=== PATIENT | male | born 1955 | race Caucasian/White ===

== ENCOUNTER 2022-08-07 13:30 | Inpatient (IN) | payer MEDICARE, MEDICAID, SELFPAY ==
[2022-08-07] VITALS (17 sets, daily range): BP systolic 115–191; BP diastolic 61–134; PULSE 67–84; RESP 15–18; TEMP 35.2; O2SAT 88–98
--- NOTE | 2022-08-07 13:37 | ED_ITS ---
HPI - Seizure General: Chief Complaint: Seizure Stated Complaint: seizure Time Seen by Provider: 08/07/22 13:35 Source: patient Mode of arrival: EMS History of Present Illness: HPI Narrative: 67-year-old male presents emergency room via EMS with complaints of multiple seizures. He has a history of chronic alcohol use but no previous seizure history. He had a seizure at 1250 this morning. EMS was later called when they were on scene they witnessed the seizure gave him 2 and half milligrams of Versed and then witnessed another seizure in route gave him another 2 and half milligrams of Versed on arrival here he is obtunded from the sedation of the Versed he is on 2 L of oxygen which she is not normally on and he is unable to be aroused by noxious stimuli there are no family at the bedside MD complaint: seizure Onset (ago): minute(s) Description of Episode: tonic-clonic movement Witnessed: Yes - by Bystander Trauma: Yes Seizure History: Yes Place: Home Possible Precipitating Event: alcohol withdrawal Associated symptoms: Deny cough or other Review of Systems General: Reports: ROS unobtainable due to medical condition and ROS unobtainable due to mental status [facility] ED PFSH: Medical History Alcohol abuse Alcohol withdrawal seizure Diabetes Essential hypertension History of cirrhosis of liver Surgical History Hx of adenoidectomy Hx of appendectomy Hx of tonsillectomy Family History Other Cancer Hypertension Lung disease Prostate cancer Social History Smoking and tobacco status: current every day smoker Alcohol intake: current Caregiver/support person: Yes Lives independently: Yes Household members: other Details: significant other Housing: House Marital status: Life Partner Physical Exam HENMT: COMMON NORMALS: normocephalic, atraumatic and hearing grossly normal bilaterally HEAD & SCALP: normocephalic and atraumatic Resp: COMMON NORMALS: normal respiratory effort, No retractions, No use of accessory muscles and clear to auscultation bilaterally AUSCULTATION: clear to auscultation bilaterally Cardio: COMMON NORMALS: regular rate, regular rhythm and No murmurs present (Cardio) RATE: regular rate RHYTHM: regular rhythm GI: COMMON NORMALS: Soft to palpation and No hepatosplenomegaly present AUSCULTATION: Yes normoactive bowel sounds PALPATION: Yes Soft to palpation, No Tenderness to palpation present (GI), No Guarding due to palpation present (GI) and Yes No hepatosplenomegaly present Extremity: COMMON NORMALS: normal to inspection, capillary refill normal, no clubbing, cyanosis or edema, no calf tenderness and no pedal edema Skin: COMMON NORMALS: no rashes or lesions noted GENERAL SKIN EXAM: no rashes or lesions noted Procedures Intubation Time out performed: Yes sedative: Etomidate paralytic: Succinylcholine Laryngoscope: Solis ET Tube Size: 8 ET Tube Uncuffed: Yes Tube Secured Depth (cm): 23 Tube Placement Confirmation: visualized tube passing through cords, equal breath sounds bilaterally, no breath sounds over epigastrium and confirmation by capnometry Patient Tolerated Procedure: well Intubation Complications: none Course Vital Signs: Vital signs: Vital Signs Temperature 98.2 F 08/17/22 14:13 Pulse Rate 93 08/17/22 14:13 Respiratory Rate 18 08/17/22 14:13 Blood Pressure 154/79 08/17/22 14:13 Pulse Oximetry 97 08/17/22 14:13 Oxygen Delivery Me thod 08/17/22 11:24 Oxygen Flow Rate 3 08/14/22 19:59 Fraction of Inspir ed Oxygen 24 08/14/22 06:00 MDM - Seizure MDM Narrative Medical decision making narrative: Alcoholic liver cirrhosis with severe decompensation patient poorly responsive discussed with hospitalist we ultimately decided to intubate the patient. Will admit to the ICU Labs imaging and EKGs reviewed reviewed as found on the chart. Hospitalist has seen the patient orders written prognosis poor Seizures likely due to alcohol withdrawal. Patient is alcoholic liver cirrhosis with portal vein thrombus esophageal varices. In addition to this he has acute kidney injury lactic acidosis elevations of his transaminases. He is in acute hypercapnic respiratory failure required intubation. Diabetic. Incidental finding of a cystitis. Lab Data 08/17/22 03:21 08/17/22 03:21 Labs: Radiology Impressions Head CT 08/07/22 14:04 IMPRESSION: 1. No evidence of intracranial hemorrhage or mass effect. 2. Mild small vessel changes. Mild parenchymal volume loss. 3. Vascular calcification. 4. No acute intracranial findings. Abdomen/Pelvis CT 08/07/22 15:13 IMPRESSION: 1. 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 Splenomegaly. 3. Portal venous hypertension with extensive portal venous collaterals and small upper abdominal varices. 4. Normal renal parenchymal enhancement. No hydronephrosis. 5. Normal caliber abdominal aorta. 6. Sigmoid diverticulosis. 7. Enlarged prostate measuring 4.1 CM. 8. No other acute findings. Notified Lico Parry DO at 08/07/2022 4:22 PM. Gallbladder Ultrasound 08/07/22 15:13 IMPRESSION: 1. Markedly abnormal liver. Most consistent with a cirrhotic fibrotic appearing liver. 2. Large tubular structures in the central liver contains a lobulated mass. This is a large recanalized umbilical vein with thrombus as well as also seen on the recent CT. 3. Mild sludge-filled gallbladder. Chest X-Ray 08/14/22 08:00 Impression: 1. No change in minimal bibasilar opacities. 2. Removal of endotracheal tube and nasogastric tube. Laboratory Results WBC 8.4 10^3/uL (4.0-10.0) 08/07/22 12:45 RBC 5.35 10^6/uL (4.1-5.3) H 08/07/22 12:45 Hgb 16.3 g/dL (11.7-16.6) 08/07/22 12:45 Hct 49.1 % (42.0-52.0) 08/07/22 12:45 MCV 91.8 fl (80-94) 08/07/22 12:45 MCH 30.5 pg (28.0-34.0) 08/07/22 12:45 MCHC 33.2 g/dL (30.0-36.0) 08/07/22 12:45 RDW 17.4 % (12.1-15.1) H 08/07/22 12:45 Plt Count 111 10^3/cmm (130-400) L 08/07/22 12:45 MPV 11.1 fL (7.4-10.4) H 08/07/22 12:45 Neut % (Auto) 79.1 % 08/07/22 12:45 Lymph % (Auto) 11.1 % 08/07/22 12:45 [place] % (Auto) 9.2 % 08/07/22 12:45 Eos % (Auto) 0.2 % 08/07/22 12:45 Baso % (Auto) 0.2 % 08/07/22 12:45 Neut # (Auto) 6.63 10^3/uL (1.8-7.7) 08/07/22 12:45 Lymph # (Auto) 0.9 10^3/uL (0.8-4.8) 08/07/22 12:45 [place] # (Auto) 0.8 10^3/uL (0.2-0.9) 08/07/22 12:45 Eos # (Auto) 0.0 10^3/uL (0.0-0.8) 08/07/22 12:45 Baso # (Auto) 0.0 10^3/uL (0.0-0.1) 08/07/22 12:45 Nucleated RBC % (auto) 0 % 08/07/22 12:45 Nucleated RBCs # 0.0 /100WBC 08/07/22 12:45 PT 20.50 SECONDS (12.1-14.9) H 08/07/22 16:34 INR 1.70 (0.8-1.2) H 08/07/22 16:34 APTT 33.2 SECONDS (23.9-36.7) 08/07/22 16:34 Specimen Type Arterial 08/07/22 14:18 Sample Site Brachial, right 08/07/22 14:18 ABG pH 7.33 (7.35-7.45) L 08/07/22 14:18 ABG pCO2 46.8 mmHg (35-45) H 08/07/22 14:18 ABG pO2 68.7 mmHg (80.0-100.0) L 08/07/22 14:18 ABG HCO3 24.8 mmol/L (22-26) 08/07/22 14:18 ABG O2 Saturation 91.6 08/07/22 14:18 ABG Base Excess -1.5 mmol/L (-2.0-2.0) 08/07/22 14:18 [place] Test N/a 08/07/22 14:18 A-a O2 Gradient 13.7 mmHg (5-10) H 08/07/22 14:18 Hematocrit 47.2 % (42-52) 08/07/22 14:18 Hgb O2 Saturation 87.7 % (95-100) L 08/07/22 14:18 Carboxyhemoglobin 4.0 %THgb (0.4-20.1) 08/07/22 14:18 Methemoglobin 0.3 % (0.4-1.5) L 08/07/22 14:18 Total Hemoglobin 15.4 g/dL (14-18) 08/07/22 14:18 Sodium 141.0 mmol/L (131-143) 08/07/22 14:18 Potassium 4.3 mmol/L (3.5-5.0) 08/07/22 14:18 Glucose 198.0 mg/dL (70-115) H 08/07/22 14:18 Ionized Calcium 1.1 mmol/L (1.1-1.4) 08/07/22 14:18 O2 Delivery Device Nc 08/07/22 14:18 O2 Liters/Min 3.0 % 08/07/22 14:18 FiO2 32.0 % 08/07/22 14:18 Field Human Resources Manager ID [facility] 08/07/22 14:18 Sodium 140 mmol/L (136-145) 08/07/22 12:45 Potassium 5.4 mmol/L (3.5-5.1) H 08/07/22 12:45 Chloride 97 mmol/L (98-107) L 08/07/22 12:45 Carbon Dioxide 17 mmol/L (22-29) L 08/07/22 12:45 Anion Gap 31.4 (5-19) H 08/07/22 12:45 BUN 33 mg/dL (8-23) H 08/07/22 12:45 Creatinine 1.9 mg/dL (0.7-1.2) H 08/07/22 12:45 GFR Calculation 35.3 mL/min (90-130) L 08/07/22 12:45 Glucose 180 mg/dL (65-115) H 08/07/22 12:45 POC Glucose 201 mg/dL (70-110) H 08/07/22 14:30 Calculated Osmolality 302 mOsm/kg (285-295) H 08/07/22 12:45 Lactic Acid 3.7 mmol/L (0.5-2.2) H 08/07/22 14:56 Calcium 9.4 mg/dL (8.5-10.5) 08/07/22 12:45 Iron 241 ug/dL (59-158) H 08/07/22 12:45 TIBC 247 mcg/dl 08/07/22 12:45 % Saturation 97.5 % (20-50) H 08/07/22 12:45 Unsat Iron Binding 6 ug/dL (112-347) L 08/07/22 12:45 Total Bilirubin 6.1 mg/dL (0.15-1.2) H 08/07/22 12:45 AST 114 U/L (0-40) H 08/07/22 12:45 ALT 57 U/L (0-41) H 08/07/22 12:45 Alkaline Phosphatase 320 U/L (40-130) H 08/07/22 12:45 Creatine Kinase 178 U/L (39-308) 08/07/22 12:45 Total Protein 6.7 g/dL (6.6-8.7) 08/07/22 12:45 Albumin 3.7 g/dL (3.5-5.2) 08/07/22 12:45 Globulin 3.0 g/dL (1.3-4.6) 08/07/22 12:45 Lipase 119 U/L (13-60) H 08/07/22 12:45 Procalcitonin 1.16 ng/mL (0-0.5) H 08/07/22 12:45 Urine Color Dark yellow (Yellow) 08/07/22 14:48 Urine Appearance Hazy (CLEAR) A 08/07/22 14:48 Urine pH 5 (5-7) 08/07/22 14:48 Ur Specific [place] 1.030 (1.005-1.030) 08/07/22 14:48 Urine Protein 3+ (Negative) H 08/07/22 14:48 Urine Glucose (UA) Norm (Normal) 08/07/22 14:48 Urine Ketones 1+ (Negative) H 08/07/22 14:48 Urine Blood 3+ (Negative) H 08/07/22 14:48 Urine Nitrate Negative (Negative) 08/07/22 14:48 Urine Bilirubin 2+ (Negative) H 08/07/22 14:48 Urine Urobilinogen 8 mg/dL (Negative) H 08/07/22 14:48 Ur Leukocyte Esterase Trace (Negative) H 08/07/22 14:48 Urine RBC 80-100 /hpf (0-2) H 08/07/22 14:48 Urine WBC 0-4 /hpf (0-5) H 08/07/22 14:48 Ur Squamous Epith Cells 0-4 /hpf (0-5) H 08/07/22 14:48 Amorphous Sediment 4+ /hpf 08/07/22 14:48 Urine Bacteria Trace /hpf (NONE) 08/07/22 14:48 Urine Opiates Screen Negative ng/mL (Negative) 08/07/22 14:48 Ur Barbiturates Screen Negative ng/mL (Negative) 08/07/22 14:48 Ur Phencyclidine Scrn Negative ng/mL (Negative) 08/07/22 14:48 Ur Amphetamines Screen Negative ng/mL (Negative) 08/07/22 14:48 U Benzodiazepines Scrn Negative ng/mL (Negative) 08/07/22 14:48 Urine Cocaine Screen Negative ng/mL (Negative) 08/07/22 14:48 U Marijuana (THC) Screen Positive ng/mL (Negative) H 08/07/22 14:48 Ethyl Alcohol < 10 mg/dL (0-10) 08/07/22 12:45 Critical Care Time Critical Care Time: Critical Care Time: Yes Total Critical Care Time: 60 Attestation: The high probability of a clinically significant, sudden or life threatening deterioration of the patient's cardiovascular respiratory neurologic system(s) required my full and direct attention, intervention and personal management. The critical care time is as shown. This time is in addition to time spent perfo rming any reported procedures but includes the following: [x] Data and vital sign review and interpretation [x] Patient assessment, examination and intervention [x] Documentation [x] Medication orders and management Discharge Plan Discharge Patient Disposition: Admitted As Inpatient Admit Provider: Shahid Ortiz Clinical Impression: Alcohol withdrawal seizure, High anion gap metabolic acidosis, Acute hypercapnic respiratory failure, Alcoholic cirrhosis of liver, Esophageal varices, Portal vein thrombosis, Acute kidney injury, Lactic acid acidosis, Alcoholism, Cystitis, Diabetes mellitus Condition: Stable Coding Level of Care Code ED Tutoring Manager for Preston Stratton
--- NOTE | 2022-08-07 14:04 | ECG_ITS ---
[facility] Test Date: 2022-08-07 Pat Name: Varun Lee Department: Room: Gender: Male Human Resources Services Specialist: : [id number] Requested By: Lico Moy Order Number: [id number] Lima MD: Codey Damon M.D. Measurements Intervals [place] Rate: 70 P: 58 IN: 171 QRS: 33 QRSD: 84 T: 47 QT: 453 QTc: 489 Interpretive Statements SINUS RHYTHM PROLONGED QT INTERVAL No previous ECG available for comparison Electronically Signed On 08-07-2022 16:19:53 LABORATORY DIRECTOR by Codey Damon M.D. [email or web address]
--- NOTE | 2022-08-07 14:04 | CT_ITS ---
WS: [id number] CT HEAD TECHNIQUE: Noncontrast CT of the head obtained from the skullbase to the vertex. CLINICAL INFORMATION: AMS COMPARISON: None. DLP: 1076.[address] scans at [facility] use at least one of these dose optimization techniques: automated e xposure control; mA and/or kV adjustment per patient size (includes targeted exams where dose is matc hed to clinical indication); or iterative reconstruction. FINDINGS: No evidence of intracranial hemorrhage or mass effect. Ventricular system and basal cisterns are leslie nt. Mild small vessel changes with moderate parenchymal volume loss. No extra-axial fluid collections . No evidence of mass or mass effect. Mastoid air cells well aerated. Secretions within the posterior nasopharynx. Retention cyst or polyp in the LEFT sphenoid sinus measuring [address]/CT head wo con* [id number] IMPRESSION: 1. No evidence of intracranial hemorrhage or mass effect. 2. Mild small vessel changes. Mild parenchymal volume loss. 3. Vascular calcification. 4. No acute intracranial findings.
--- NOTE | 2022-08-07 14:04 | XR_ITS ---
WS: [id number] PORTABLE CHEST HISTORY: dyspnea/cough COMPARISON: None available. Lungs are well-aerated. 7 mm nodule at the apex may be a granuloma. No prior studies for comparison. No pleural effusion or pneumothorax. Cardiac size: Normal. Mediastinum/Aorta: Mild atherosclerosis aorta. No osseous abnormality seen. XR/XR chest 1V portable [id number] IMPRESSION: 1. No pneumonia. 2. 7 mm nodule at the RIGHT apex. No prior studies for comparison. May be dayna gn granuloma. Recommend follow-up chest CT without contrast for evaluation. Thi s can be done on a nonurgent basis.
--- NOTE | 2022-08-07 14:08 | PC.PHAR ---
pt unable to verify medications-pts friend keyana [phone] states the pt takes care of his own medications-medications entered are from what shows has been filled recently on ext med history
[2022-08-07 14:18] LABS: Basophils % 0.2 %; Eosinophils % 0.2 %; Hematocrit 49.1 % (42.0-52.0); Hemoglobin 16.3 g/dL (11.7-16.6); Lymphocytes # 0.9 10^3/uL (0.8-4.8); Lymphocytes % 11.1 %; Mean Corpuscular HGB Conc 33.2 g/dL (30.0-36.0); Mean Corpuscular Hemoglobin 30.5 pg (28.0-34.0); Mean Corpuscular Volume 91.8 fl (80-94); Mean Platelet Volume 11.1 fL (7.4-10.4); Monocytes # 0.8 10^3/uL (0.2-0.9); Monocytes % 9.2 %; Neutrophils # 6.63 10^3/uL (1.8-7.7); Neutrophils % 79.1 %; Nucleated Red Blood Cells % 0 %; Platelet Count 111 10^3/cmm (130-400); Red Blood Count 5.35 10^6/uL (4.1-5.3); Red Cell Distribution Width 17.4 % (12.1-15.1); White Blood Count 8.4 10^3/uL (4.0-10.0)
[2022-08-07 14:26] LABS: Alanine Aminotransferase 57 U/L (0-41); Albumin Level 3.7 g/dL (3.5-5.2); Alkaline Phosphatase 320 U/L (40-130); Aspartate Amino Transferase 114 U/L (0-40); Blood Urea Nitrogen 33 mg/dL (8-23); Calcium 9.4 mg/dL (8.5-10.5); Carbon Dioxide 17 mmol/L (22-29); Chloride 97 mmol/L (98-107); Creatine Phosphokinase 178 U/L (39-308); Glomerular Filtration Rate 35.3 mL/min (90-130); Glucose 180 mg/dL (65-115); Osmolality Calculated 302 mOsm/kg (285-295); Sodium 140 mmol/L (136-145); Total Bilirubin 6.1 mg/dL (0.15-1.2); Total Protein 6.7 g/dL (6.6-8.7)
[2022-08-07 14:28] LABS: Alcohol Level < 10 mg/dL (0-10); Anion Gap 31.4 (5-19); Potassium 5.4 mmol/L (3.5-5.1)
[2022-08-07 14:30] LABS: ABG PCO2 46.8 mmHg (35-45); ABG PH Result 7.33 (7.35-7.45); Alveolar-Arterial Oxygen Gradi 13.7 mmHg (5-10); Arterial Blood Gas Hematocrit 47.2 % (42-52); Base Excess ABG -1.5 mmol/L (-2.0-2.0); Blood Gas Operator Identificat AMH; Blood Gas Sample Site Brachial, right; Blood Gas Sample Type Arterial; HCO3 ABG 24.8 mmol/L (22-26); HGB O2 Sat 87.7 % (95-100); Ionized Calcium Level - ABG 1.1 mmol/L (1.1-1.4); Methemoglobin 0.3 % (0.4-1.5); Oxygen Device NC; Oxygen Saturation ABG 91.6; PO2 ABG 68.7 mmHg (80.0-100.0); Potassium Level - ABG 4.3 mmol/L (3.5-5.0); Total Hemoglobin 15.4 g/dL (14-18)
[2022-08-07 14:34] LABS: Glucose Point of Care 201 mg/dL (70-110)
[2022-08-07 15:04] LABS: Amphetamines Screen Urine Negative (Negative); Barbiturates Screen Urine Negative (Negative); Benzodiazepines Screen Urine Negative (Negative); Cocaine Screen Urine Negative (Negative); Opiate Screen Urine Negative (Negative); PCP Screen Urine Negative (Negative); THC Screen Urine Positive (Negative)
--- NOTE | 2022-08-07 15:13 | US_ITS ---
WS: [id number] RIGHT UPPER QUADRANT ULTRASOUND HISTORY: elevated bilirubin COMPARISON: None available. Liver: 17.2 cm in length. Liver is normal size although there is marked heterogeneity. Coarse echotex ture with lobulated surface. Fibrotic appearing surface. Probably due to cirrhosis. Dilated vessel in the central liver is partially thrombosed. This corresponds to a large recanalized umbilical vein as noted on the CT. Portal Vein: Not definitely visualized. Gallbladder: Fluid-filled structure extends along the RIGHT lobe the liver inferiorly. If this is the gallbladder contains a small amount of sludge. No pericholecystic fluid. CBD: 0.4 cm Pancreas: Normal size and echogenicity. Right kidney: 12.5 cm in length. Normal size and echogenicity. No hydronephrosis or mass. Aorta and IVC: Unremarkable abdominal aorta and IVC. No ascites. US/US gall bladder [id number] IMPRESSION: 1. Markedly abnormal liver. Most consistent with a cirrhotic fibrotic appearin g liver. 2. Large tubular structures in the central liver contains a lobulated mass. Th is is a large recanalized umbilical vein with thrombus as well as also seen on the recent CT. 3. Mild sludge-filled gallbladder.
--- NOTE | 2022-08-07 15:13 | CT_ITS ---
WS: [id number] CT ABDOMEN PELVIS TECHNIQUE: Contrast-enhanced CT of the abdomen and pelvis with coronal and sagittal reformatted image s. CLINICAL INFORMATION: abd pain COMPARISON: None. DLP: 513.[address] scans at [facility] use at least one of these dose optimization techniques: automated e xposure control; mA and/or kV adjustment per patient size (includes targeted exams where dose is matc hed to clinical indication); or iterative reconstruction. FINDINGS: Advanced hepatic cirrhosis with diffuse nodular contour to the liver. Diffuse heterogeneous enhanceme nt. Atrophy within the RIGHT hepatic lobe at the dome the liver extending laterally. Acute appearing filling defect consistent with thrombus in the main portal vein. Chronic compression of the LEFT and RIGHT portal veins. Superior mesenteric vein is patent. Splenic vein is patent. Splenomegaly. Extensi ve portosystemic collaterals with anterior abdominal wall varices. Large collateral vessels in the RI GHT anterior abdominal wall and rectus abdominis. These extend to the RIGHT groin. Compression of the extrahepatic and intrahepatic IVC with narrowing which appears patent. Adrenal gla nds are normal. Normal renal parenchymal enhancement. No hydronephrosis. Normal caliber abdominal aor ta. Celiac and SMA are patent. Gallbladder with increased attenuation likely due to vicarious excreti on of contrast. Normal tapering of the common bile duct at the pancreatic head which is normal calibe r distally. No significant gallbladder wall thickening or pericholecystic fluid. Normal pancreatic parenchymal enhancement. Enlarged prostate with calcification measuring 4.1 CM. Sig moid diverticulosis. No evidence of acute diverticulitis. No high-grade small or large bowel obstruct ion. Slight bibasilar atelectasis. CT/CT abdomen pelvis w con* [id number] IMPRESSION: 1. 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 Splenomegaly. 3. Portal venous hypertension with extensive portal venous collaterals and sma ll upper abdominal varices. 4. Normal renal parenchymal enhancement. No hydronephrosis. 5. Normal caliber abdominal aorta. 6. Sigmoid diverticulosis. 7. Enlarged prostate measuring 4.1 CM. 8. No other acute findings. Notified Lico Parry DO at 08/07/2022 4:22 PM.
[2022-08-07 15:20] LABS: Lactic Sepsis W/Reflex 3.7 mmol/L (0.5-2.2)
[2022-08-07 15:40] LABS: Bilirubin Urine 2+ (Negative); Blood Urine 3+ (Negative); Glucose Urine UA Norm (Normal); Ketones Urine 1+ (Negative); Nitrate Urine Negative (Negative); Protein Urine 3+ (Negative); Urine Appearance Hazy (CLEAR); Urine Color Dark Yellow (Yellow); Urobilinogen Urine 8 mg/dL (Negative); pH Urine 5 (5-7)
[2022-08-07 15:41] LABS: Add Urine Microscopic? YES; Leukocyte Esterase Urine Trace (Negative)
[2022-08-07 15:42] LABS: Add Urine Culture? Yes; Bacteria Urine TRACE /hpf; RBC Urine 80-100 /hpf (0-2); Squamous Epithelial Cell Urine 0-4 /hpf (0-5); WBC Urine 0-4 /hpf (0-5)
[2022-08-07 15:43] LABS: Amorphous Sediment Urine 4+ /hpf
[2022-08-07 16:44] LABS: Reflex Lactate Order REFLEX LACTIC ORDERD
[2022-08-07 16:48] LABS: Lipase 119 U/L (13-60)
[2022-08-07] MEDS: etomidate 2 mg/mL INJ SDV 10 mL 20 MG IVP (16:51)
[2022-08-07] MEDS: vecuronium 10 mg SDV IVP (16:52)
[2022-08-07 16:58] LABS: Partial Thromboplastin Time 33.2 SECONDS (23.9-36.7)
[2022-08-07] MEDS: propofol 1,000 MG/100 ML INJ 8.2 MG (17:11)
--- NOTE | 2022-08-07 17:11 | P.HP_ITS ---
Providers/Chief Complaint Chief Complaint: seizure History of Present Illness Varun Lee is a 67 year old male who is a chronic alcoholic with a history of hypertension and diabetes mellitus. As per the life partner patient drinks up to 10 to 12 cans of [place] Light and 4-5 shots of whiskey a day. As for the life partner who lives with the patient he possibly has not had alcohol for last 3 to 4 days. Patient was getting more altered for last 5 to 6 days at home and today morning she found him walking naked at home. While she was trying to call the EMS she noticed patient having seizures. Life partner is not able to provide any further history. As per the EMS record he was found to have GCS for which she received 2 mg of IV Ativan once at home and once on route to the hospital. ER course: Patient was found to be obtunded, not responding to painful stimulus and ABG showed mild acidosis with hypercapnia for which she was placed on BiPAP. He received 1 L of IV fluid bolus along with cocktail for hyperkalemia. Blood work showed hemoglobin of 16, white count of 8.3, platelet of 111, ABG showing a pH of 7.33, PCO2 46, PO2 of 68, chemistry showing sodium of 140 potassium of 5.4 chloride of 97, creatinine of 1.9 with anion gap of 31 with a lactate of 3.7, bilirubin of 6.1 AST/ALT of 114/57 alkaline phosphatase of 320, UA concerning for UTI and CTA abdomen pelvis as below. Review of Systems General: Reports: ROS unobtainable due to endotracheal tube and ROS unobtainable due to mental status Medications/Allergies Home Medications Medication Instructions Recorded Confirmed Last Taken Type metformin 1,000 mg tablet 1,000 mg PO BID 05/14/22 08/07/22 Unknown History folic acid 1 mg tablet 1 mg PO DAILY 08/07/22 08/07/22 Unknown History glipizide 2.5 mg tablet, extended 2.5 mg PO DAILY 08/07/22 08/07/22 Unknown History release 24 hr lenvatinib 12 mg/day (4 mg x 3) 12 mg PO DAILY 08/07/22 08/07/22 Unknown History capsule (Lenvima) lisinopril 40 mg tablet 40 mg PO DAILY 08/07/22 08/07/22 Unknown History nadolol 40 mg tablet 40 mg PO DAILY 08/07/22 08/07/22 Unknown History pantoprazole 40 mg tablet,delayed 40 mg PO BID 08/07/22 08/07/22 Unknown History release rosuvastatin 5 mg tablet 5 mg PO BEDTIME 08/07/22 08/07/22 Unknown History Allergies Allergy/AdvReac Type Severity Reaction Status Date / Time No Known Allergies Allergy Unverified 05/14/22 15:19 PFSH Acute PFSH: Medical History (Updated 08/07/22 @ 17:42 by Shahid Ortiz MD) Alcohol abuse Alcohol withdrawal seizure Diabetes Essential hypertension History of cirrhosis of liver Surgical History (Updated 08/07/22 @ 13:52 by Lico Parry DO) Hx of adenoidectomy Hx of appendectomy Hx of tonsillectomy Family History Other Cancer Hypertension Lung disease Prostate cancer Social History (Updated 08/07/22 @ 17:21 by Shahid Ortiz MD) Smoking and tobacco status: current every day smoker Alcohol intake: current Caregiver/support person: Yes Lives independently: Yes Household members: other Details: significant other Housing: House Marital status: Life Partner Vitals/I&O/Wt Last Vital Signs Pulse 70 08/07/22 15:25 Resp 15 08/07/22 17:03 Pulse Ox 93 08/07/22 15:25 FiO2 40 08/07/22 17:03 Physical Exam Narrative: General: intubated, sedated, icteric, pallor HEENT: PERRLA, pupils bilaterally equal and reactive Chest: Normal vesicular breath sounds, no added sounds, equal good air entry bilaterally CVS: S1-S2 regular, no murmurs, no tachycardia, no gallops, no rubs Abdomen: Soft, nontender, no organomegaly, bowel sounds present and sluggish Neuro: Intubated, sedated Data 08/07/22 12:45 08/07/22 12:45 Other Labs: Radiology Impressions Chest X-Ray 08/07/22 14:04 IMPRESSION: 1. No pneumonia. 2. 7 mm nodule at the RIGHT apex. No prior studies for comparison. May be benign granuloma. Recommend follow-up chest CT without contrast for evaluation. This can be done on a nonurgent basis. Head CT 08/07/22 14:04 IMPRESSION: 1. No evidence of intracranial hemorrhage or mass effect. 2. Mild small vessel changes. Mild parenchymal volume loss. 3. Vascular calcification. 4. No acute intracranial findings. Abdomen/Pelvis CT 08/07/22 15:13 IMPRESSION: 1. 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 Splenomegaly. 3. Portal venous hypertension with extensive portal venous collaterals and small upper abdominal varices. 4. Normal renal parenchymal enhancement. No hydronephrosis. 5. Normal caliber abdominal aorta. 6. Sigmoid diverticulosis. 7. Enlarged prostate measuring 4.1 CM. 8. No other acute findings. Notified Lico Parry DO at 08/07/2022 4:22 PM. Gallbladder Ultrasound 08/07/22 15:13 IMPRESSION: 1. Markedly abnormal liver. Most consistent with a cirrhotic fibrotic appearing liver. 2. Large tubular structures in the central liver contains a lobulated mass. This is a large recanalized umbilical vein with thrombus as well as also seen on the recent CT. 3. Mild sludge-filled gallbladder. Laboratory Results WBC 8.4 10^3/uL (4.0-10.0) 08/07/22 12:45 RBC 5.35 10^6/uL (4.1-5.3) H 08/07/22 12:45 Hgb 16.3 g/dL (11.7-16.6) 08/07/22 12:45 Hct 49.1 % (42.0-52.0) 08/07/22 12:45 MCV 91.8 fl (80-94) 08/07/22 12:45 MCH 30.5 pg (28.0-34.0) 08/07/22 12:45 MCHC 33.2 g/dL (30.0-36.0) 08/07/22 12:45 RDW 17.4 % (12.1-15.1) H 08/07/22 12:45 Plt Count 111 10^3/cmm (130-400) L 08/07/22 12:45 MPV 11.1 fL (7.4-10.4) H 08/07/22 12:45 Neut % (Auto) 79.1 % 08/07/22 12:45 Lymph % (Auto) 11.1 % 08/07/22 12:45 [place] % (Auto) 9.2 % 08/07/22 12:45 Eos % (Auto) 0.2 % 08/07/22 12:45 Baso % (Auto) 0.2 % 08/07/22 12:45 Neut # (Auto) 6.63 10^3/uL (1.8-7.7) 08/07/22 12:45 Lymph # (Auto) 0.9 10^3/uL (0.8-4.8) 08/07/22 12:45 [place] # (Auto) 0.8 10^3/uL (0.2-0.9) 08/07/22 12:45 Eos # (Auto) 0.0 10^3/uL (0.0-0.8) 08/07/22 12:45 Baso # (Auto) 0.0 10^3/uL (0.0-0.1) 08/07/22 12:45 Nucleated RBC % (auto) 0 % 08/07/22 12:45 Nucleated RBCs # 0.0 /100WBC 08/07/22 12:45 PT 20.50 SECONDS (12.1-14.9) H 08/07/22 16:34 INR 1.70 (0.8-1.2) H 08/07/22 16:34 APTT 33.2 SECONDS (23.9-36.7) 08/07/22 16:34 Specimen Type Arterial 08/07/22 14:18 Sample Site Brachial, right 08/07/22 14:18 ABG pH 7.33 (7.35-7.45) L 08/07/22 14:18 ABG pCO2 46.8 mmHg (35-45) H 08/07/22 14:18 ABG pO2 68.7 mmHg (80.0-100.0) L 08/07/22 14:18 ABG HCO3 24.8 mmol/L (22-26) 08/07/22 14:18 ABG O2 Saturation 91.6 08/07/22 14:18 ABG Base Excess -1.5 mmol/L (-2.0-2.0) 08/07/22 14:18 Silvano Test N/a 08/07/22 14:18 A-a O2 Gradient 13.7 mmHg (5-10) H 08/07/22 14:18 Hematocrit 47.2 % (42-52) 08/07/22 14:18 Hgb O2 Saturation 87.7 % (95-100) L 08/07/22 14:18 Carboxyhemoglobin 4.0 %THgb (0.4-20.1) 08/07/22 14:18 Methemoglobin 0.3 % (0.4-1.5) L 08/07/22 14:18 Total Hemoglobin 15.4 g/dL (14-18) 08/07/22 14:18 Sodium 141.0 mmol/L (131-143) 08/07/22 14:18 Potassium 4.3 mmol/L (3.5-5.0) 08/07/22 14:18 Glucose 198.0 mg/dL (70-115) H 08/07/22 14:18 Ionized Calcium 1.1 mmol/L (1.1-1.4) 08/07/22 14:18 O2 Delivery Device Nc 08/07/22 14:18 O2 Liters/Min 3.0 % 08/07/22 14:18 FiO2 32.0 % 08/07/22 14:18 Call Center Operations Manager ID Amh 08/07/22 14:18 Sodium 140 mmol/L (136-145) 08/07/22 12:45 Potassium 5.4 mmol/L (3.5-5.1) H 08/07/22 12:45 Chloride 97 mmol/L (98-107) L 08/07/22 12:45 Carbon Dioxide 17 mmol/L (22-29) L 08/07/22 12:45 Anion Gap 31.4 (5-19) H 08/07/22 12:45 BUN 33 mg/dL (8-23) H 08/07/22 12:45 Creatinine 1.9 mg/dL (0.7-1.2) H 08/07/22 12:45 GFR Calculation 35.3 mL/min (90-130) L 08/07/22 12:45 Glucose 180 mg/dL (65-115) H 08/07/22 12:45 POC Glucose 201 mg/dL (70-110) H 08/07/22 14:30 Calculated Osmolality 302 mOsm/kg (285-295) H 08/07/22 12:45 Lactic Acid 3.7 mmol/L (0.5-2.2) H 08/07/22 14:56 Calcium 9.4 mg/dL (8.5-10.5) 08/07/22 12:45 Total Bilirubin 6.1 mg/dL (0.15-1.2) H 08/07/22 12:45 AST 114 U/L (0-40) H 08/07/22 12:45 ALT 57 U/L (0-41) H 08/07/22 12:45 Alkaline Phosphatase 320 U/L (40-130) H 08/07/22 12:45 Creatine Kinase 178 U/L (39-308) 08/07/22 12:45 Total Protein 6.7 g/dL (6.6-8.7) 08/07/22 12:45 Albumin 3.7 g/dL (3.5-5.2) 08/07/22 12:45 Globulin 3.0 g/dL (1.3-4.6) 08/07/22 12:45 Lipase 119 U/L (13-60) H 08/07/22 12:45 Urine Color Dark yellow (Yellow) 08/07/22 14:48 Urine Appearance Hazy (CLEAR) A 08/07/22 14:48 Urine pH 5 (5-7) 08/07/22 14:48 Ur Specific [place] 1.030 (1.005-1.030) 08/07/22 14:48 Urine Protein 3+ (Negative) H 08/07/22 14:48 Urine Glucose (UA) Norm (Normal) 08/07/22 14:48 Urine Ketones 1+ (Negative) H 08/07/22 14:48 Urine Blood 3+ (Negative) H 08/07/22 14:48 Urine Nitrate Negative (Negative) 08/07/22 14:48 Urine Bilirubin 2+ (Negative) H 08/07/22 14:48 Urine Urobilinogen 8 mg/dL (Negative) H 08/07/22 14:48 Ur Leukocyte Esterase Trace (Negative) H 08/07/22 14:48 Urine RBC 80-100 /hpf (0-2) H 08/07/22 14:48 Urine WBC 0-4 /hpf (0-5) H 08/07/22 14:48 Ur Squamous Epith Cells 0-4 /hpf (0-5) H 08/07/22 14:48 Amorphous Sediment 4+ /hpf 08/07/22 14:48 Urine Bacteria Trace /hpf (NONE) 08/07/22 14:48 Urine Opiates Screen Negative ng/mL (Negative) 08/07/22 14:48 Ur Barbiturates Screen Negative ng/mL (Negative) 08/07/22 14:48 Ur Phencyclidine Scrn Negative ng/mL (Negative) 08/07/22 14:48 Ur Amphetamines Screen Negative ng/mL (Negative) 08/07/22 14:48 U Benzodiazepines Scrn Negative ng/mL (Negative) 08/07/22 14:48 Urine Cocaine Screen Negative ng/mL (Negative) 08/07/22 14:48 U Marijuana (THC) Screen Positive ng/mL (Negative) H 08/07/22 14:48 Ethyl Alcohol < 10 mg/dL (0-10) 08/07/22 12:45 A&P Assessment and plan (1) Alcohol withdrawal seizure: (2) Hypercapnic respiratory failure: (3) High anion gap metabolic acidosis: (4) Acute kidney injury: (5) Lactic acid acidosis: (6) Transaminitis: (7) Diabetes: (8) Esophageal varices in alcoholic cirrhosis: (9) Alcohol abuse: (10) Essential hypertension: (11) UTI (urinary tract infection): Plan 67-year-old with history of chronic alcoholic abuse found to have alcohol with drawal seizures at home by EMS received Ativan and when present in the ER was found to be hypercapnic, mixed metabolic and respiratory acidosis with high anion gap acidosis, acute kidney injury liver disorder obtunded on BiPAP hence decision was made to intubate to prevent airway. Plan: Continue sedation with propofol and fentanyl. Propofol will prevent for any seizures. Will plan for sedation vacation within next 24 to 48 hours depending on clinical picture. Keep saturation over 90%. Wean ventilator accordingly. ABG in couple of hours. Keep mean artery pressure 65. Currently blood pressure is elevated. If blood pressures continue to remain more than 160 mmHg even after sedating medications will start on antihypertensives. Can plan for amlodipine 10 mg along with hydralazine IV. Cannot rule out mild UTI or aspiration pneumonia for now. Check MRSA swab, blood culture, sputum culture, urine culture. Empirically start on Zosyn for now. For high anion gap metabolic acidosis: Most likely in setting of lactic acidosis, alcoholic ketosis. Less likely DKA for now. Check ketones. We will hold off on starting insulin drip for now. IV hydration with normal saline at 100 cc/h after banana bag resuscitation. Check CMP every 4 hours. If anion gap continues to remain high even after fluid bolus after 4 hours we will start on insulin drip with target blood glucose of 200-2 50. For acute kidney injury: With hyperkalemia, high anion gap metabolic acidosis: Medical reconstruction done for nephrotoxic drugs. Hold off on lisinopril. IV fluid as above. Continue to monitor. Alcoholic liver cirrhosis: Transaminitis, hyperbilirubinemia. INR mildly elevated. Child- Adair score of 10. Patient is not a good candidate for liver transplant given current alcohol abuse. IV Protonix 40 mg twice daily. Hold off on rosuvastatin for now. Alcohol abuse/alcohol withdrawal seizure: For now continue with propofol which will help with alcohol withdrawal seizures as well. IV thiamine 100 mg for next 5 days. Banana bag. Once closer to extubation we will switch over to Precedex and extubate on CIWA protocol Ativan. Check vitamin B12, folate levels. Oral folate 1 g twice daily. Appreciate CPK results. History of esophageal varices: CT abdomen pelvis shows portal vein hypertension with extensive portal venous collaterals. Nonhemorrhagic for now. Continue to monitor hemoglobin. Continue Protonix 40 mg twice daily. Hypertension: Goal blood pressure less than 140/90 mmHg. Blood pressures remain high even after proper sedation medication we will start on amlodipine and IV hydralazine as above. Type 2 diabetes mellitus: Check A1c. For now start on insulin scale every 4 hourly. Depending on ketones and anion gap in the next few hours after fluid resuscitation we will decide about insulin drip. On review of medication it seems patient is on a medication called as Levnatinib which is anticancer medication for possible thyroid cancer. Life partner cannot give me any medical history. No medical history present in chart. Will check TSH. Patient's care discussed in detail with patient's life partner Ms. Gann on [phone]. She states her DPOA would be his sister Ms. Cason. She is not able to provide the number currently. Full code. NPO. Heparin 5000 every 12 hourly for DVT prophylaxis Protonix. 5 sets PVD prophylaxis. Attestations Medical Necessity Statement*: Admission for more than 2 midnights for management of respiratory failure requiring mechanical ventilation in setting of alcohol withdrawal seizure, high anion gap metabolic acidosis, acute kidney injury with hyperkalemia, alcohol liver cirrhosis Coding Level of Care Code Critical Care >/= 30 minutes Critical care time (in minutes): 70 The high probability of a clinically significant, sudden or life threatening deterioration, as referenced in this documentation, required my full and direct attention, intervention and personal management. The critical care time shown is in addition to time spent performing any reported separately billable procedures and includes the following: [x] Data and vital sign review and interpretation [x ] Patient assessment, examination and intervention [x] Medication orders and management [x] Patient/Family updates as able [x] Care Coordination and Documentation. Diagnoses Alcohol withdrawal seizure F10.939; R56.9 Hypercapnic respiratory failure J96.92 High anion gap metabolic acidosis E87.29 Acute kidney injury N17.9 Lactic acid acidosis E87.20 Transaminitis R74.01 Diabetes E11.9 Esophageal varices in alcoholic cirrhosis K70.30; I85.10 Alcohol abuse F10.10 Essential hypertension I10 UTI (urinary tract infection) N39.0
--- NOTE | 2022-08-07 17:16 | PC.NURSE ---
Patient was intubated @ 1653 with color change. 22 @ teeth 1654.
--- NOTE | 2022-08-07 17:32 | XRR_ITS ---
PROCEDURE INFORMATION: Exam: XR Chest Exam date and time: 08/07/2022 5:47 PM Age: 67 years old Clinical indication: Device placement; Ett placement (vent status) TECHNIQUE: Imaging protocol: Radiologic exam of the chest. Views: 1 view. COMPARISON: CR XR chest 1V portable [id number] 08/07/2022 2:09 PM FINDINGS: Tubes, catheters and devices: Gastric tube with tip in the mid stomach. Intubation with tip 6.6 cm above the shaka, on the last of 2 submitted images. Lungs: Stable calcified granuloma in the right lung apex. The lungs are otherwise clear. Pleural spaces: Unremarkable. No pleural effusion. No pneumothorax. Heart/Mediastinum: Unremarkable. No cardiomegaly. Bones/joints: Unremarkable. Gastrointestinal tract: The stomach is decompressed. XR/XR chest 1V portable [id number] IMPRESSION: 1. No acute findings. 2. Intubation with tip 6.6 cm above the shaka.
[2022-08-07] MEDS: folic acid 1 MG, multivitamin inj 10 ML, thiamine 100 MG in sodium chloride 0.9% 1,000 ML 252.8 MG IV (17:36)
[2022-08-07 17:41] LABS: Iron 241 ug/dL (59-158)
[2022-08-07] MEDS: calcium chloride 10% Syr 10 mL 2 GM IVP (17:56)
[2022-08-07] MEDS: sodium chloride 0.9% 1,000 ML 999 ML IV (17:57)
[2022-08-07] MEDS: pantoprazole 40 mg SDV IVP (17:58)
[2022-08-07 18:04] LABS: ABG PCO2 39.4 mmHg (35-45); ABG PH Result 7.41 (7.35-7.45); Arterial Blood Gas Hematocrit 45.5 % (42-52); Base Excess ABG 0.6 mmol/L (-2.0-2.0); Blood Gas Sample Type Arterial; Carboxyhemoglobin 2.4 %THgb (0.4-20.1); HCO3 ABG 25.1 mmol/L (22-26); HGB O2 Sat 90.5 % (95-100); Methemoglobin 0.8 % (0.4-1.5); Oxygen Saturation ABG 93.5; PO2 ABG 72.1 mmHg (80.0-100.0); Total Hemoglobin 14.9 g/dL (14-18)
[2022-08-07 18:06] LABS: Alveolar-Arterial Oxygen Gradi 21.7 mmHg (5-10); Blood Gas Operator Identificat AMH; Blood Gas Sample Site Brachial, right; Blood Gas Tidal Volume 0.45; Oxygen Device VENT
[2022-08-07] MEDS: hyDRALAzine 20 mg/mL INJ 1 mL 10 MG IVP (18:07)
[2022-08-07] MEDS: heparin 5,000 unit/mL INJ 1 mL 5000 UNIT SUBCUT (18:13)
[2022-08-07] MEDS: piperacillin-tazobactam 3.375 GM in sodium chloride 0.9% (plus) 50 ML IV (18:13)
--- NOTE | 2022-08-07 18:20 | PC.NURSE ---
Patient's BP at one point in time was 230/xxx. This nurse admin hydrazine 10mg per provider.
--- NOTE | 2022-08-07 18:54 | PC.NURSE ---
This nurse took a phone call from the patient's daughter. Daughter was upset and wanted to be the patient's medical power of ip attorney. Daughter is upset and call was transferred to Nursing Associate Professor Of Counseling.
[2022-08-07 19:28] LABS: Ketone (Acetest) Serum Negative (Negative)
[2022-08-07 19:29] LABS: Lactic Acid level (Lactate) 2.8 mmol/L (0.5-2.2)
[2022-08-07 19:42] LABS: Alanine Aminotransferase 49 U/L (0-41); Albumin Level 3.1 g/dL (3.5-5.2); Alkaline Phosphatase 273 U/L (40-130); Anion Gap 19.2 (5-19); Aspartate Amino Transferase 101 U/L (0-40); Blood Urea Nitrogen 38 mg/dL (8-23); Calcium 11.7 mg/dL (8.5-10.5); Carbon Dioxide 23 mmol/L (22-29); Chloride 102 mmol/L (98-107); Globulin 2.4 g/dL (1.3-4.6); Glomerular Filtration Rate 46.4 mL/min (90-130); Glucose 207 mg/dL (65-115); Osmolality Calculated 305 mOsm/kg (285-295); Potassium 4.2 mmol/L (3.5-5.1); Sodium 140 mmol/L (136-145); Thyroid Stimulating Hormone 1.22 uIU/mL (0.27-4.20); Total Bilirubin 4.5 mg/dL (0.15-1.2); Total Protein 5.5 g/dL (6.6-8.7); Vitamin B12 1835 pg/mL (232-1245)
[2022-08-07 19:43] LABS: Percent Saturation 97.5 % (20-50); Total Iron Binding Capacity 247 mcg/dl; Unsaturated Iron Binding 6 ug/dL (112-347)
[2022-08-07 19:44] LABS: Procalcitonin 1.16 ng/mL (0-0.5)
[2022-08-07] MEDS: docusate sodium 100 mg Capsule PO (20:10)
[2022-08-07] MEDS: sodium chloride 0.9% 1,000 ML 125 ML IV (20:10)
[2022-08-07] MEDS: budesonide 0.5 mg/2 mL Neb INHALATION (20:15)
--- NOTE | 2022-08-07 20:28 | PC.NURSE ---
Admission On admission, pt temp was attempted bilaterally axillary. No temp would read, so a rectal temp was taken. Pt was found to have 93 temp, so bear hugger was placed on pt and continual rectal temp monitoring was placed as well. Currently, temp is reading 95.4.
[2022-08-07 21:24] LABS: Alanine Aminotransferase 47 U/L (0-41); Alkaline Phosphatase 267 U/L (40-130); Anion Gap 16.8 (5-19); Aspartate Amino Transferase 96 U/L (0-40); Blood Urea Nitrogen 36 mg/dL (8-23); Calcium 10.3 mg/dL (8.5-10.5); Carbon Dioxide 23 mmol/L (22-29); Chloride 103 mmol/L (98-107); Globulin 2.3 g/dL (1.3-4.6); Glomerular Filtration Rate 54.7 mL/min (90-130); Glucose 187 mg/dL (65-115); Osmolality Calculated 301 mOsm/kg (285-295); Potassium 3.8 mmol/L (3.5-5.1); Sodium 139 mmol/L (136-145); Total Bilirubin 4.2 mg/dL (0.15-1.2); Total Protein 5.3 g/dL (6.6-8.7)
[2022-08-07] MEDS: insulin lispro 100 unit/1 mL SUBCUT (22:08)
[2022-08-07 22:09] LABS: Glucose Point of Care 173 mg/dL (70-110)
[2022-08-07] MEDS: propofol 1,000 MG/100 ML INJ 15.84 MG IV (22:50)
[2022-08-07 23:48] LABS: Calcium 9.8 mg/dL (8.5-10.5)
[2022-08-07 23:54] LABS: Parathyroid Hormone 29.2 pg/mL (15-65)
[2022-08-08] VITALS (74 sets, daily range): BP systolic 81–136; BP diastolic 48–70; PULSE 54–72; RESP 15; TEMP 36.3–36.7; O2SAT 85–100; BMI 20.5
[2022-08-08] MEDS: piperacillin-tazobactam 3.375 GM in sodium chloride 0.9% (plus) 50 ML IV ×3 (01:24→17:13)
[2022-08-08 01:26] LABS: Glucose Point of Care 105 mg/dL (70-110)
[2022-08-08 01:59] LABS: Basophils % 0.4 %; Eosinophils # 0.1 10^3/uL (0.0-0.8); Eosinophils % 1.1 %; Hemoglobin 13.2 g/dL (11.7-16.6); Lymphocytes # 0.5 10^3/uL (0.8-4.8); Lymphocytes % 9.4 %; Mean Corpuscular HGB Conc 33.8 g/dL (30.0-36.0); Mean Corpuscular Hemoglobin 30.6 pg (28.0-34.0); Mean Corpuscular Volume 90.3 fl (80-94); Mean Platelet Volume 10.9 fL (7.4-10.4); Monocytes # 0.8 10^3/uL (0.2-0.9); Monocytes % 14.4 %; Neutrophils % 74.3 %; Nucleated Red Blood Cells % 0 %; Platelet Count 62 10^3/cmm (130-400); Red Blood Count 4.32 10^6/uL (4.1-5.3); Red Cell Distribution Width 16.9 % (12.1-15.1); White Blood Count 5.6 10^3/uL (4.0-10.0)
[2022-08-08 02:14] LABS: INR 1.62 (0.8-1.2)
[2022-08-08 02:15] LABS: Estmated Average Glucose 108; Hemoglobin A1C 5.4 % (4.0-6.0)
[2022-08-08 02:21] LABS: Alanine Aminotransferase 43 U/L (0-41); Albumin Level 2.8 g/dL (3.5-5.2); Alkaline Phosphatase 236 U/L (40-130); Anion Gap 13.7 (5-19); Aspartate Amino Transferase 83 U/L (0-40); Blood Urea Nitrogen 34 mg/dL (8-23); Calcium 9.3 mg/dL (8.5-10.5); Carbon Dioxide 24 mmol/L (22-29); Chloride 109 mmol/L (98-107); Globulin 2.1 g/dL (1.3-4.6); Glomerular Filtration Rate 54.7 mL/min (90-130); Glucose 110 mg/dL (65-115); Osmolality Calculated 304 mOsm/kg (285-295); Potassium 3.7 mmol/L (3.5-5.1); Sodium 143 mmol/L (136-145); Total Bilirubin 3.1 mg/dL (0.15-1.2); Total Protein 4.9 g/dL (6.6-8.7)
[2022-08-08] MEDS: sodium chloride 0.9% 1,000 ML 125 ML IV (04:09)
[2022-08-08] MEDS: pantoprazole 40 mg SDV IVP ×2 (04:41→17:13)
[2022-08-08] MEDS: heparin 5,000 unit/mL INJ 1 mL 5000 UNIT SUBCUT (05:09)
[2022-08-08 05:22] LABS: Glucose Point of Care 86 mg/dL (70-110)
[2022-08-08] MEDS: LORazepam 2 mg/mL INJ 1 mL IVP (05:28)
--- NOTE | 2022-08-08 05:30 | PC.NURSE ---
Pt has become increasingly more agitated. Sedation has been titrated higher (see MAR). Pt brow is furrowed and pt spo2 has been in the upper 80/s. RT notified. Rt stated pt was biting ET tube. Pt given IVP ativan. Will continue to monitor.
--- NOTE | 2022-08-08 06:00 | USCV_ITS ---
Varun Lee Age: 67 Gender: M : 1955 Exam Date: 08/08/2022 07:48 Ordering Phys: Shahid Ortiz MD Technologist: ANA ROSA Exam Location: [facility] – [place] Indication: chf BP: / HR: 53 Rhythm: Sinus Technical Quality: Adequate MEASUREMENTS (Male / Female) Normal Values 2D ECHO LV Diastolic Diameter PLAX 3.8 cm 4.2 - 5.9 / 3.9 - 5.3 cm LV Systolic Diameter PLAX 2.5 cm IVS Diastolic Thickness 1.0 cm 0.6 - 1.0 / 0.6 - 0.9 cm IVS Systolic Thickness 1.5 cm LVPW Diastolic Thickness 1.1 cm 0.6 - 1.0 / 0.6 - 0.9 cm LVPW Systolic Thickness 1.7 cm LVOT Diameter 2.0 cm LV Ejection Fraction 2D Teich 63.9 % LV Ejection Fraction MOD 2C 59.8 % LV Ejection Fraction 2C AL 58.9 % LA Diameter 2.7 cm IVC Diameter 2.0 cm M-MODE Aortic Annulus Diameter 3.0 cm LA Ao Ratio MM 1.1 MV E Point Septal Separation 0.1 cm DOPPLER AV Peak Velocity 123.0 cm/s LVOT Peak Velocity 134.0 cm/s AV Area Cont Eq vti 3.4 cm squared AV Area Cont Eq pk 3.6 cm squared MV Area PHT 2.7 cm squared Mitral E to A Ratio 0.9 MV E' Velocity 28.5 cm/s Mitral E to MV E' Ratio 9.8 Mitral E to LV E' Lateral Ratio 9.1 Mitral E to LV E' Septal Ratio 10.9 TV Peak E Velocity 48.0 cm/s PV Peak Velocity 104.0 cm/s FINDINGS Left Ventricle Normal left ventricular cavity size. Moderate left ventricular hypertrophy. Normal left ventricular systolic function. Grade II/IV diastolic dysfunction, moderately elevated filling pressures. Left ventricular ejection fraction is estimated at 65 %. Right Ventricle Normal right ventricular size and systolic function. Right Atrium The right atrium is normal in size. Left Atrium The left atrium is normal in size. Mitral Valve Structurally normal mitral valve. Trace mitral valve regurgitation. Aortic Valve Structurally normal aortic valve without significant sclerosis or stenosis. There is no aortic regurgitation. Tricuspid Valve Structurally normal tricuspid valve. Trace tricuspid valve regurgitation. Pulmonic Valve No pulmonary valve stenosis. Pericardium Normal pericardium without effusion. Aorta Normal ascending aorta dimension. IVC The inferior vena cava appears normal. CONCLUSIONS Normal left ventricular cavity size. Moderate left ventricular hypertrophy. Normal left ventricular systolic function. Grade II/IV diastolic dysfunction, moderately elevated filling pressures. Left ventricular ejection fraction is estimated at 65 %. Structurally normal mitral valve. Trace mitral valve regurgitation. There are no prior echocardiogram studies to compare. Dr. Codey Damon MD (Electronically Signed) Final Date: 08 August 2022 08:36 S
--- NOTE | 2022-08-08 06:03 | XRR_ITS ---
PROCEDURE INFORMATION: Exam: XR Chest Exam date and time: 08/08/2022 6:11 AM Age: 67 years old Clinical indication: Other: Decreased spo2 TECHNIQUE: Imaging protocol: Radiologic exam of the chest. Views: 1 view. COMPARISON: CR (CHEST, ) 08/07/2022 5:47 PM FINDINGS: Tubes, catheters and devices: The endotracheal tube is appropriately positioned in the distal thoracic trachea with the tip above the shaka. The nasogastric tube extends beyond the diaphragmatic hiatus. The tip is not imaged. Lungs: There is no consolidation. 9 mm nodule projects over the right lung apex. There is thickening of the right upper paratracheal stripe which may be due in part to costochondral calcification. Pleural spaces: There is no pleural effusion or pneumothorax. Heart/Mediastinum: Cardiomediastinal contours are unremarkable. Bones/joints: Bones are unremarkable. XR/XR chest 1V portable [id number] IMPRESSION: 1. Satisfactory endotracheal tube position. 2. NG tube is in the stomach. The tip is not imaged. 3. No acute pulmonary findings. 4. Probable 9 mm right apical lung nodule and thickening of the right paratracheal stripe. Possible neoplasm. Recommend nonemergent chest CT follow-up.
[2022-08-08 06:26] LABS: ABG PCO2 40.2 mmHg (35-45); ABG PH Result 7.42 (7.35-7.45); Alveolar-Arterial Oxygen Gradi 55.7 mmHg (5-10); Arterial Blood Gas Hematocrit 41.8 % (42-52); Base Excess ABG 1.3 mmol/L (-2.0-2.0); Blood Gas Allen Test Pos; Blood Gas Sample Site Radial, right; Blood Gas Sample Type Arterial; Carboxyhemoglobin 0.8 %THgb (0.4-20.1); HGB O2 Sat 97.9 % (95-100); Ionized Calcium Level - ABG 1.3 mmol/L (1.1-1.4); Methemoglobin 0.7 % (0.4-1.5); Oxygen Device VENT; Oxygen Saturation ABG 99.4; Potassium Level - ABG 3.6 mmol/L (3.5-5.0); Total Hemoglobin 13.6 g/dL (14-18)
[2022-08-08] MEDS: propofol 1,000 MG/100 ML INJ 13.86 MG IV (06:26)
[2022-08-08 07:10] LABS: Folate Level > 20.0 ng/mL (4.5-32.2)
[2022-08-08] MEDS: budesonide 0.5 mg/2 mL Neb INHALATION ×2 (08:25→20:04)
[2022-08-08] MEDS: folic acid 1 mg Tablet PO (09:06)
[2022-08-08] MEDS: multivitamin therapeutic Tablet 1 TAB PO (09:06)
[2022-08-08 09:08] LABS: Glucose Point of Care 81 mg/dL (70-110)
[2022-08-08 09:46] LABS: Alanine Aminotransferase 45 U/L (0-41); Albumin Level 2.7 g/dL (3.5-5.2); Alkaline Phosphatase 237 U/L (40-130); Anion Gap 14.6 (5-19); Aspartate Amino Transferase 89 U/L (0-40); Blood Urea Nitrogen 36 mg/dL (8-23); Calcium 8.8 mg/dL (8.5-10.5); Carbon Dioxide 22 mmol/L (22-29); Chloride 110 mmol/L (98-107); Chol HDL Ratio 8.05 mg/dL (1.0-5.00); Cholesterol 177 mg/dL (0-200); Creatinine Clr Calc Pharmacy 49.4464; Globulin 2.3 g/dL (1.3-4.6); Glomerular Filtration Rate 50.2 mL/min (90-130); Glucose 84 mg/dL (65-115); HDL Cholesterol 22 mg/dL (60-100); LDL Cholesterol Calculated 131 mg/dL (50-129); Magnesium 1.4 mg/dL (1.7-2.3); Osmolality Calculated 304 mOsm/kg (285-295); Phosphorus 3.7 mg/dL (2.5-4.5); Potassium 3.6 mmol/L (3.5-5.1); Sodium 143 mmol/L (136-145); Total Bilirubin 2.5 mg/dL (0.15-1.2); Triglycerides 118 mg/dL (0-150); VLDL Cholestrol Calculation 24 mg/dL (0-30)
[2022-08-08] MEDS: dextrose 5%-sod chloride 0.9% 1,000 ML 100 ML IV ×2 (10:38→21:16)
[2022-08-08 10:50] LABS: Glucose Point of Care 134 mg/dL (70-110)
[2022-08-08] MEDS: PHENobarbital 130 mg/mL SDV 1 mL 220 MG IV ×3 (11:10→17:13)
[2022-08-08] MEDS: albumin 25 G/100 ML VIAL IV ×2 (12:00→20:34)
[2022-08-08 13:41] LABS: ABG PCO2 40.6 mmHg (35-45); ABG PH Result 7.39 (7.35-7.45); Arterial Blood Gas Hematocrit 41.7 % (42-52); Base Excess ABG -0.2 mmol/L (-2.0-2.0); Blood Gas Operator Identificat GD; Blood Gas Sample Site Brachial, right; Blood Gas Sample Type Arterial; Blood Gas Tidal Volume 0.45; Fractionated Inspired Oxygen 0.5 %; HCO3 ABG 24.7 mmol/L (22-26); HGB O2 Sat 89.6 % (95-100); Ionized Calcium Level - ABG 1.2 mmol/L (1.1-1.4); Methemoglobin 0.5 % (0.4-1.5); Oxygen Device VENT; Oxygen Saturation ABG 90.9; PO2 ABG 63.9 mmHg (80.0-100.0); Potassium Level - ABG 3.4 mmol/L (3.5-5.0); Total Hemoglobin 13.6 g/dL (14-18)
--- NOTE | 2022-08-08 14:07 | PC.NUTR ---
MD consult received: For hx of DM and elevated glucose, recommend changing Jevity 1.2 to glucerna 1.2 at 10ml/hr, increasing 10ml/hr q8hrs as tolerated to goal of 65ml/hr with FWF 200ml q6hrs or per MD. TF provides 1872kcal (97%), 94g protein (100%), and 2152ml fluids (100%). Propofol provides additional 157kcal. 100% needs met at goal rate with propofol 5.94ml/hr.
--- NOTE | 2022-08-08 16:54 | P.PN_ITS ---
Subjective Subjective: Overnight events appreciated. At around 530 there was a concern for agitation/possible seizure activity time his dose of propofol was increased. During that time he was also found to have hypoxia because he bit down on the ET tube. FiO2 was increased to 100%. Blood pressures during that time were down to 88 systolics. Today morning on examination propofol is being weaned down. Currently propofol is on 15 and fentanyl 100. Mean artery pressure of more than 65. Current ventilator settings is FiO2 of 50%, tidal volume of 450, PEEP of 6 saturating more than 93%. Overnight patient did have hypothermia and required David hugger. Today morning on examination patient is quite impatient maintained around 97.3. Documented urine output of around 800 cc since admission. Vitals/I&O/Wt Last Vital Signs Temp 97.3 F L 08/08/22 02:30 Pulse 61 08/08/22 14:00 Resp 15 08/08/22 15:20 BP 113/54 08/08/22 12:30 Pulse Ox 100 08/08/22 15:20 O2 Del Method 08/08/22 08:25 FiO2 45 08/08/22 15:20 08/08/22 08/08/22 08/08/22 06:59 14:59 22:59 Intake Total 1388.400 / 3474.142 1089.589 / 1089.589 Output Total 800 / 800 Balance 588.400 / 2674.142 1089.589 / 1089.589 Weight last 48 hrs Weight 66 kg Weight 66 kg Physical Exam Narrative: General: intubated, sedated, icteric, pallor HEENT: PERRLA, pupils bilaterally equal and reactive Chest: Normal vesicular breath sounds, no added sounds, equal good air entry bilaterally CVS: S1-S2 regular, no murmurs, no tachycardia, no gallops, no rubs Abdomen: Soft, nontender, no organomegaly, bowel sounds present and sluggish Neuro: Intubated, sedated Urinary Catheter Management: Guzman: Cath Placed During This Visit: yes Reason for Continuing Indwelling Catheter: Accurate Measurement of Urinary O utput in Critically Ill Patients Urinary Catheter Date of Insertion: 08/07/22 Urinary Catheter Time of Insertion: 17:30 Data 08/08/22 01:20 08/08/22 09:06 Micro: Microbiology 08/07/22 20:30 MRSA Culture - Final Nose 08/07/22 17:00 Gram Stain - Final Sputum - Endotracheal Tube Aspirate 08/07/22 20:30 Legionella Urinary Antigen - Final Urine Catheterized 08/07/22 14:48 Bacterial Antigens - Final Urine Kidney 08/07/22 18:17 Blood Culture - Preliminary Blood SPECIMEN COLLECTED 08/07/22 18:10 Blood Culture - Preliminary Blood SPECIMEN COLLECTED A&P Assessment and plan (1) Alcohol withdrawal seizure: (2) Hypercapnic respiratory failure: (3) High anion gap metabolic acidosis: (4) Hepatorenal syndrome: (5) Acute kidney injury: (6) Transaminitis: (7) Lactic acid acidosis: (8) Diabetes: (9) Esophageal varices in alcoholic cirrhosis: (10) Alcohol abuse: (11) Essential hypertension: (12) UTI (urinary tract infection): (13) Hypothermia: Plan 67-year-old with history of chronic alcoholic abuse found to have alcohol withdrawal seizures at home by EMS received Ativan and when present in the ER was found to be hypercapnic, mixed metabolic and respiratory acidosis with high anion gap acidosis, acute kidney injury liver disorder obtunded on BiPAP hence d ecision was made to intubate to prevent airway. Plan: Alcohol abuse/alcohol withdrawal seizure: For now continue with propofol which will help with alcohol withdrawal seizures as well. IV thiamine 100 mg for next 5 days. Oral folic acid 1 g daily. Appreciate CPK results. Continue with propofol and fentanyl. Start on phenobarbital with 220 mg every 3 hours for 3 doses as loading dose followed by 62.4 mg twice daily for 2 days followed by 32 mg twice daily. Check phenobarbital levels every morning. Keep mean artery pressure between 65-70. Cannot rule out mild UTI or aspiration pneumonia for now. Blood cultures so far negative, follow-up sputum culture urine culture. MRSA negative. Empirically start on Zosyn for now. For acute kidney injury: With hyperkalemia, high anion gap metabolic acidosis: Hyperkalemia metabolic acidosis has resolved. Concerns for hepatorenal syndrome. Start on albumin every 8 hourly. Midodrine 5 mg 3 times daily. Will uptitrate as per blood pressure goals. Start on octreotide. Medical reconciliation done for nephrotoxic drugs. Hold off on lisinopril. D5 NS at 100 cc/h. Continue to monitor. Alcoholic liver cirrhosis: Transaminitis, hyperbilirubinemia. INR mildly elevated. Child- Adair score 9. Patient is not a good candidate for liver transplant given current alcohol abuse. IV Protonix 40 mg twice daily. Hold off on rosuvastatin for now. Thrombocytopenia: Most likely in setting of chronic alcohol liver disease. Continue to monitor. For high anion gap metabolic acidosis: Most likely in setting of lactic acidosis, alcoholic ketosis. Less likely DKA for now. Resolved. History of esophageal varices: CT abdomen pelvis shows portal vein hypertension with extensive portal venous collaterals. Nonhemorrhagic for now. Continue to monitor hemoglobin. Continue Protonix 40 mg twice daily. Hypertension: Goal blood pressure less than 140/90 mmHg. Blood pressures remain high even after proper sedation medication we will start on amlodipine and IV hydralazine as above. Type 2 diabetes mellitus: A1c 5.4. Hold off on any further insulin. On review of medication it seems patient is on a medication called as Levnatinib which is anticancer medication for possible thyroid cancer. Life partner cannot give me any medical history. No medical history present in chart. TSH normal limits. Check PTH. Corrected calcium at 9.8. Patient's care discussed in detail with patient's life partner Ms. Gann on [phone]. Care discussed in detail with Ms. Briones/patient's sister on [phone]. Full code. Start on tube feeds with Jevity at 10 cc/h, increase 10 cc every 4 hours with goal at 50 cc/h, free water flush 100 cc every 6 hours. Thrombocytopenia. Hold off on heparin for now. Protonix. Will suffice as PVD prophylaxis. Attestations Medical Necessity Statement*: Requires further hospitalization for management of alcohol withdrawal seizures, mechanical ventilation in setting of respiratory failure, hepatorenal syndrome with acute kidney injury Coding Level of Care Code Critical Care >/= 30 minutes Critical care time (in minutes): 60 The high probability of a clinically significant, sudden or life threatening deterioration, as referenced in this documentation, required my full and direct attention, intervention and personal management. The critical care time shown is in addition to time spent performing any reported separately billable procedures and includes the following: [x] Data and vital sign review and interpretation [x ] Patient assessment, examination and intervention [x] Medication orders and management [x] Patient/Family updates as able [x] Care Coordination and Documentation. Diagnoses Alcohol withdrawal seizure F10.939; R56.9 Hypercapnic respiratory failure J96.92 High anion gap metabolic acidosis E87.29 Hepatorenal syndrome K76.7 Acute kidney injury N17.9 Transaminitis R74.01 Lactic acid acidosis E87.20 Diabetes E11.9 Esophageal varices in alcoholic cirrhosis K70.30; I85.10 Alcohol abuse F10.10 Essential hypertension I10 UTI (urinary tract infection) N39.0 Hypothermia T68.XXXA
--- NOTE | 2022-08-08 17:05 | PC.NURSE ---
Propofol dosing, please don't go above 20mcg/kg/min. If seizure activity does occur please use ativan on AUG per Dr. Byers
[2022-08-08 17:21] LABS: Glucose Point of Care 124 mg/dL (70-110)
[2022-08-08] MEDS: midodrine 5 mg TABLET PO ×2 (18:03→21:33)
[2022-08-08] MEDS: octreotide 500 MCG in sodium chloride 0.9% (100 ml) 100 ML 10.1 MCG IV (18:10)
[2022-08-08] MEDS: propofol 1,000 MG/100 ML INJ 3.96 MG IV (23:45)
[2022-08-09] VITALS (60 sets, daily range): BP systolic 115–173; BP diastolic 57–73; PULSE 60–78; RESP 15–17; TEMP 36.9; O2SAT 99–100; BMI 23.5
[2022-08-09 00:41] LABS: Hepatitis A Antibody IgM Non-Reactive (Nonreactive); Hepatitis B Core AB, Total Non-Reactive (Nonreactive); Hepatitis B Surface AB 5.3 (11.5-1000); Hepatitis B Surface Antigen Non-Reactive (Nonreactive); Hepatitis C Virus Antibody Reactive (Nonreactive)
[2022-08-09] MEDS: piperacillin-tazobactam 3.375 GM in sodium chloride 0.9% (plus) 50 ML IV ×3 (02:02→18:32)
[2022-08-09] MEDS: albumin 25 G/100 ML VIAL IV ×3 (03:13→18:33)
[2022-08-09] MEDS: octreotide 500 MCG in sodium chloride 0.9% (100 ml) 100 ML 10.1 MCG IV ×3 (03:13→23:10)
[2022-08-09 03:55] LABS: ABG PH Result 7.33 (7.35-7.45); Arterial Blood Gas Hematocrit 39.5 % (42-52); Base Excess ABG -2.2 mmol/L (-2.0-2.0); Blood Gas Allen Test Pos; Blood Gas Sample Site Radial, right; Blood Gas Sample Type Arterial; Blood Gas Tidal Volume 0.45; Carboxyhemoglobin 1.5 %THgb (0.4-20.1); HCO3 ABG 23.9 mmol/L (22-26); HGB O2 Sat 90.8 % (95-100); Ionized Calcium Level - ABG 1.2 mmol/L (1.1-1.4); Oxygen Device VENT; Oxygen Saturation ABG 93.1; Potassium Level - ABG 3.4 mmol/L (3.5-5.0); Total Hemoglobin 12.9 g/dL (14-18)
[2022-08-09 03:58] LABS: Basophils % 0.5 %; Eosinophils # 0.1 10^3/uL (0.0-0.8); Eosinophils % 1.5 %; Hematocrit 39.3 % (42.0-52.0); Lymphocytes # 0.3 10^3/uL (0.8-4.8); Lymphocytes % 8.4 %; Mean Corpuscular HGB Conc 33.1 g/dL (30.0-36.0); Mean Corpuscular Hemoglobin 32.1 pg (28.0-34.0); Mean Platelet Volume 10.6 fL (7.4-10.4); Monocytes # 0.4 10^3/uL (0.2-0.9); Monocytes % 11.3 %; Neutrophils # 3.03 10^3/uL (1.8-7.7); Neutrophils % 77.5 %; Nucleated Red Blood Cells % 0 %; Platelet Count 39 10^3/cmm (130-400); Red Blood Count 4.05 10^6/uL (4.1-5.3); Red Cell Distribution Width 18.2 % (12.1-15.1); White Blood Count 3.9 10^3/uL (4.0-10.0)
[2022-08-09 03:59] LABS: Ammonia 53 umol/L (16-60)
[2022-08-09 04:21] LABS: Albumin Level 3.1 g/dL (3.5-5.2); Alkaline Phosphatase 210 U/L (40-130); Blood Urea Nitrogen 30 mg/dL (8-23); Carbon Dioxide 23 mmol/L (22-29); Chloride 104 mmol/L (98-107); Globulin 2.2 g/dL (1.3-4.6); Glomerular Filtration Rate 66.4 mL/min (90-130); Glucose 198 mg/dL (65-115); Osmolality Calculated 296 mOsm/kg (285-295); Sodium 137 mmol/L (136-145); Total Bilirubin 2.2 mg/dL (0.15-1.2); Total Protein 5.3 g/dL (6.6-8.7)
[2022-08-09 04:22] LABS: Anion Gap 13.6 (5-19); Potassium 3.6 mmol/L (3.5-5.1)
[2022-08-09 04:23] LABS: Aspartate Amino Transferase 118 U/L (0-40)
[2022-08-09 04:24] LABS: Alanine Aminotransferase 44 U/L (0-41)
[2022-08-09] MEDS: pantoprazole 40 mg SDV IVP ×2 (05:16→18:32)
[2022-08-09 05:58] LABS: Slide Review Slide Review Perform
--- NOTE | 2022-08-09 06:00 | XRR_ITS ---
PROCEDURE INFORMATION: Exam: XR Chest Exam date and time: 08/09/2022 5:27 AM Age: 67 years old Clinical indication: Other: Intubated TECHNIQUE: Imaging protocol: Radiologic exam of the chest. Views: 1 view. COMPARISON: CR (CHEST, ) 08/08/2022 6:11 AM FINDINGS: Tubes, catheters and devices: Lines and tubes unchanged. Lungs: Lung base atelectasis or scarring. No new consolidation. Pleural spaces: Unremarkable. No pleural effusion. No pneumothorax. Heart/Mediastinum: Unremarkable. No cardiomegaly. Vasculature: Advanced diffuse vascular calcification noted. Bones/joints: Unremarkable. XR/XR chest 1V portable [id number] IMPRESSION: Stable chest from prior day.
[2022-08-09] MEDS: dextrose 5%-sod chloride 0.9% 1,000 ML 100 ML IV ×2 (06:02→16:55)
[2022-08-09] MEDS: budesonide 0.5 mg/2 mL Neb INHALATION ×2 (08:16→19:57)
[2022-08-09] MEDS: folic acid 1 mg Tablet PO (09:15)
[2022-08-09] MEDS: midodrine 5 mg TABLET PO ×3 (09:15→21:01)
[2022-08-09] MEDS: docusate sodium 100 mg Capsule PO ×2 (09:15→18:32)
[2022-08-09] MEDS: multivitamin therapeutic Tablet 1 TAB PO (09:15)
[2022-08-09] MEDS: PHENobarbital 130 mg/mL SDV 1 mL 64.8 MG IV ×2 (09:16→21:01)
[2022-08-09] MEDS: FUROsemide 10 mg/mL SDV 2mL 20 MG IVP (11:08)
[2022-08-09] MEDS: propofol 1,000 MG/100 ML INJ 5.94 MG IV (12:12)
--- NOTE | 2022-08-09 17:18 | P.PN_ITS ---
Subjective Subjective: No acute vents overnight. No further seizures overnight. Patient has remained hemodynamically stable and afebrile last 24 hours. Currently on 15 of propofol and 75 of fentanyl. Current ventilator settings of 35% FiO2, tidal volume 450 with PEEP of 5. Documented urine output in last 24 hours of 1150 cc. Vitals/I&O/Wt Last Vital Signs Temp 97.9 F 08/08/22 19:30 Pulse 74 08/09/22 16:00 Resp 15 08/09/22 14:34 BP 143/65 08/09/22 16:00 Pulse Ox 100 08/09/22 16:00 O2 Del Method 08/09/22 08:16 FiO2 30 08/09/22 14:34 08/09/22 08/09/22 08/09/22 06:59 14:59 22:59 Intake Total 1670.262 / 4320.020 244.073 / 612.980 2126 / 1244.073 Output Total 350 / 1150 Balance 1320.262 / 3170.020 244.073 / 661.103 2981 / 1244.073 Weight last 48 hrs Weight 75.5 kg Weight 66 kg Weight 66 kg Physical Exam Narrative: General: intubated, sedated, icteric, pallor HEENT: PERRLA, pupils bilaterally equal and reactive Chest: Normal vesicular breath sounds, no added sounds, equal good air entry bilaterally CVS: S1-S2 regular, no murmurs, no tachycardia, no gallops, no rubs Abdomen: Soft, nontender, no organomegaly, bowel sounds present and sluggish Neuro: Intubated, sedated Urinary Catheter Management: Guzman: Cath Placed During This Visit: yes Reason for Continuing Indwelling Catheter: Accurate Measurement of Urinary Output in Critically Ill Patients Urinary Catheter Date of Insertion: 08/07/22 Urinary Catheter Time of Insertion: 17:30 Data 08/09/22 03:30 08/09/22 03:30 Micro: Microbiology 08/07/22 17:00 Gram Stain - Final Sputum - Endotracheal Tube Aspirate Sputum Culture - Preliminary 08/07/22 14:48 Urine Culture - Final Urine,Clean Catch 08/07/22 18:17 Blood Culture - Preliminary Blood NEGATIVE TO DATE 08/07/22 18:10 Blood Culture - Preliminary Blood NEGATIVE TO DATE 08/07/22 20:30 MRSA Culture - Final Nose A&P Assessment and plan (1) Alcohol withdrawal seizure: (2) Hypercapnic respiratory failure: (3) High anion gap metabolic acidosis: (4) Hepatorenal syndrome: (5) Acute kidney injury: (6) Transaminitis: (7) Lactic acid acidosis: (8) Diabetes: (9) Esophageal varices in alcoholic cirrhosis: (10) Alcohol abuse: (11) Essential hypertension: (12) UTI (urinary tract infection): (13) Hypothermia: Plan 67-year-old with history of chronic alcoholic abuse found to have alcohol withdrawal seizures at home by EMS received Ativan and when present in the ER was found to be hypercapnic, mixed metabolic and respiratory acidosis with high anion gap acidosis, acute kidney injury liver disorder obtunded on BiPAP hence decision was made to intubate to prevent airway. Plan: Alcohol abuse/alcohol withdrawal seizure: For now continue with propofol which will help with alcohol withdrawal seizures as well. IV thiamine 100 mg for next 5 days. Oral folic acid 1 g daily. Repeat CPK today. Continue with propofol and fentanyl. Continue phenobarbital at 62.5 mg twice daily for next 2 days followed by 32 mg twice daily. Appreciate phenobarbital level. Will check phenobarbital level every 48 hours. Patient received a loading dose yesterday. After completion of phenobarbital today can plan for sedation vacation tomorrow morning. If patient does not have any seizures while coming down on propofol can most likely plan for extubation within next 24 hours. Keep mean artery pressure around 70 given hepatorenal syndrome. Cannot rule out mild UTI or aspiration pneumonia for now. Blood culture, urine culture, sputum cultures so far negative. MRSA negative. Empirically start on Zosyn for now. For acute kidney injury: With hyperkalemia, high anion gap metabolic acidosis: Hyperkalemia metabolic acidosis has resolved. TRISTEN has resolved. Concerns for hepatorenal syndrome. Continue with albumin. For now continue with midodrine and octreotide for 24 more hours. Urine output improving. Hold off on IV fluids. IV Lasix 20 mg one-time. Medical reconciliation done for nephrotoxic drugs. Hold off on lisinopril. Continue to monitor. Alcoholic liver cirrhosis: Transaminitis, hyperbilirubinemia. INR mildly elevated. Child- Adair score 9. Patient is not a good candidate for liver transplant given current alcohol abuse. IV Protonix 40 mg twice daily. Hold off on rosuvastatin for now. Hepatitis C positive Thrombocytopenia: Most likely in setting of chronic alcohol liver disease. Slight worsening today. No active site of bleeding. Continue to monitor. For high anion gap metabolic acidosis: Most likely in setting of lactic acidosis, alcoholic ketosis. Less likely DKA for now. Resolved. History of esophageal varices: CT abdomen pelvis shows portal vein hypertension with extensive portal venous collaterals. Nonhemorrhagic for now. Continue to monitor hemoglobin. Continue Protonix 40 mg twice daily. If in case OG tube comes out will not plan to put any more OG tube until needed and that to under fluoroscopy. Hypertension: Goal blood pressure less than 140/90 mmHg. Keep mean artery pressure around 70 as above. Holding off on antihypertensives for now. Type 2 diabetes mellitus: A1c 5.4. Hold off on any further insulin. On review of medication it seems patient is on a medication called as Levnatinib which is anticancer medication for possible thyroid cancer. Life partner cannot give me any medical history. No medical history present in chart. TSH normal limits. Check PTH. Corrected calcium at 9.8. Patient's care discussed in detail with patient's life partner Ms. Gann on [phone]. Care discussed in detail with Ms. Cason/patient's sister on [phone]. Today patient's care also discussed with one of the daughters and son-in-law at bedside. All the questions were answered. CODE STATUS: Discussed in detail with patient's sister on the phone. Patient's sister after talking to multiple family members called back saying they would not want any chest compressions. Limited resuscitation. Patient tolerating tube feeds well. Continue tube feeds at 40 cc/h with free water flushes at 100 cc every 6 hours. Thrombocytopenia. Hold off on heparin for now. Protonix. Will suffice as PVD prophylaxis. Attestations Medical Necessity Statement*: Requires further hospitalization for management of alcohol withdrawal seizures, chronic liver cirrhosis, hepatorenal syndrome, respiratory failure requiring mechanical ventilation Coding Level of Care Code Critical Care >/= 30 minutes Critical care time (in minutes): 60 The high probability of a clinically significant, sudden or life threatening deterioration, as referenced in this documentation, required my full and direct attention, intervention and personal management. The critical care time shown is in addition to time spent performing any reported separately billable procedures and includes the following: [x] Data and vital sign review and interpretation [x ] Patient assessment, examination and intervention [x] Medication orders and management [x] Patient/Family updates as able [x] Care Coordination and Documentation. Diagnoses Alcohol withdrawal seizure F10.939; R56.9 Hypercapnic respiratory failure J96.92 High anion gap metabolic acidosis E87.29 Hepatorenal syndrome K76.7 Acute kidney injury N17.9 Transaminitis R74.01 Lactic acid acidosis E87.20 Diabetes E11.9 Esophageal varices in alcoholic cirrhosis K70.30; I85.10 Alcohol abuse F10.10 Essential hypertension I10 UTI (urinary tract infection) N39.0 Hypothermia T68.XXXA
[2022-08-09 17:44] LABS: Creatine Phosphokinase 242 U/L (39-308)
[2022-08-10] VITALS (60 sets, daily range): BP systolic 118–185; BP diastolic 56–83; PULSE 68–84; RESP 15–21; TEMP 37.4–38.1; O2SAT 91–100
[2022-08-10] MEDS: piperacillin-tazobactam 3.375 GM in sodium chloride 0.9% (plus) 50 ML IV ×3 (02:20→17:05)
[2022-08-10 03:29] LABS: ABG PCO2 42.3 mmHg (35-45); Alveolar-Arterial Oxygen Gradi 13.1 mmHg (5-10); Blood Gas Allen Test Pos; Blood Gas Sample Site Radial, right; Blood Gas Sample Type Arterial; Blood Gas Tidal Volume 0.45; Carboxyhemoglobin < 0.0 %THgb (0.4-20.1); HCO3 ABG 26.2 mmol/L (22-26); HGB O2 Sat > 100.0 % (95-100); Ionized Calcium Level - ABG 1.2 mmol/L (1.1-1.4); Methemoglobin < 0.0 % (0.4-1.5); Oxygen Device VENT; Oxygen Saturation ABG 90.8; PO2 ABG 60.1 mmHg (80.0-100.0); Potassium Level - ABG 3.5 mmol/L (3.5-5.0); Total Hemoglobin < 4.5 g/dL (14-18)
[2022-08-10] MEDS: pantoprazole 40 mg SDV IVP ×2 (04:24→17:05)
[2022-08-10] MEDS: propofol 1,000 MG/100 ML INJ 5.94 MG IV (04:24)
[2022-08-10] MEDS: albumin 25 G/100 ML VIAL IV ×2 (04:25→10:38)
[2022-08-10 05:14] LABS: Basophils % 0.6 %; Eosinophils # 0.1 10^3/uL (0.0-0.8); Eosinophils % 1.7 %; Hematocrit 36.7 % (42.0-52.0); Hemoglobin 11.5 g/dL (11.7-16.6); Lymphocytes # 0.3 10^3/uL (0.8-4.8); Lymphocytes % 7.3 %; Mean Corpuscular HGB Conc 31.3 g/dL (30.0-36.0); Mean Corpuscular Hemoglobin 30.5 pg (28.0-34.0); Mean Corpuscular Volume 97.3 fl (80-94); Mean Platelet Volume 11.7 fL (7.4-10.4); Monocytes # 0.5 10^3/uL (0.2-0.9); Monocytes % 14.2 %; Neutrophils # 2.52 10^3/uL (1.8-7.7); Neutrophils % 73.3 %; Nucleated Red Blood Cells % 0 %; Platelet Count 35 10^3/cmm (130-400); Red Blood Count 3.77 10^6/uL (4.1-5.3); Red Cell Distribution Width 18.6 % (12.1-15.1); White Blood Count 3.4 10^3/uL (4.0-10.0)
[2022-08-10 05:33] LABS: Alanine Aminotransferase 61 U/L (0-41); Albumin Level 3.4 g/dL (3.5-5.2); Alkaline Phosphatase 188 U/L (40-130); Anion Gap 12.6 (5-19); Aspartate Amino Transferase 133 U/L (0-40); Blood Urea Nitrogen 20 mg/dL (8-23); Carbon Dioxide 23 mmol/L (22-29); Chloride 109 mmol/L (98-107); Globulin 1.7 g/dL (1.3-4.6); Glomerular Filtration Rate 95.8 mL/min (90-130); Glucose 183 mg/dL (65-115); Osmolality Calculated 299 mOsm/kg (285-295); Potassium 3.6 mmol/L (3.5-5.1); Sodium 141 mmol/L (136-145); Total Protein 5.1 g/dL (6.6-8.7)
--- NOTE | 2022-08-10 06:00 | XRR_ITS ---
PROCEDURE INFORMATION: Exam: XR Chest Exam date and time: 08/10/2022 5:32 AM Age: 67 years old Clinical indication: Other: Daily portable for intubation; Additional info: Intubated TECHNIQUE: Imaging protocol: Radiologic exam of the chest. Views: 1 view. COMPARISON: CR (CHEST, ) 08/09/2022 5:27 AM FINDINGS: Tubes, catheters and devices: The endotracheal tube is appropriately positioned in the distal thoracic trachea with the tip above the shaka. The nasogastric tube extends beyond the diaphragmatic hiatus. The tip is not imaged. Lungs: Stable mild bilateral lower lung opacity. Pleural spaces: There is no pleural effusion or pneumothorax. Heart/Mediastinum: There is mild enlargement of the cardiac silhouette. Bones/joints: Bones are unremarkable. XR/XR chest 1V portable [id number] IMPRESSION: 1. Satisfactory endotracheal tube position. 2. NG tube is in the stomach. The tip is not imaged. 3. Stable mild nonspecific opacity in the lung bases.
[2022-08-10 06:13] LABS: Slide Review Slide Review Perform
[2022-08-10] MEDS: budesonide 0.5 mg/2 mL Neb INHALATION ×2 (08:09→20:44)
[2022-08-10] MEDS: docusate sodium 100 mg Capsule PO ×2 (08:50→17:05)
[2022-08-10] MEDS: midodrine 5 mg TABLET PO ×2 (08:50→15:30)
[2022-08-10] MEDS: multivitamin therapeutic Tablet 1 TAB PO (08:50)
[2022-08-10] MEDS: PHENobarbital 130 mg/mL SDV 1 mL 64.8 MG IV ×2 (08:50→20:41)
[2022-08-10] MEDS: folic acid 1 mg Tablet PO (08:50)
[2022-08-10] MEDS: octreotide 500 MCG in sodium chloride 0.9% (100 ml) 100 ML 10.1 MCG IV (09:11)
[2022-08-10] MEDS: FUROsemide 10 mg/mL SDV 2mL 20 MG IVP (09:14)
--- NOTE | 2022-08-10 11:40 | PC.SOCIAL ---
Imm update Imm not updated at this time as patient is intubated and not likely to discharge in the next 48 hours.
--- NOTE | 2022-08-10 13:18 | P.PN_ITS ---
Subjective Subjective: Seen this morning. Patient is intubated sedated. Nursing staff did not report any events overnight. Patient is on low doses of sedation. Has tried to move his extremities. However has not opened his eyes yet. Gas reviewed from this morning. Seven-point /60/90. FiO2 has been turned down further. Patient is on 10 of propofol. Zosyn running. Precedex was ordered but has not been started. Discussed with respiratory therapist this morning. Plan is for sedation vacation and extubate in the next 24 to 48 hours. May use Precedex for agitation as needed. Minimize sedation as much as possible. Was informed by nursing staff and family was in earlier this AM. I have not seen At bedside at time of rounding however. No seizure overnight. Vitals/I&O/Wt Last Vital Signs Temp 99.3 F 08/10/22 04:00 Pulse 73 08/10/22 12:00 Resp 15 08/10/22 11:49 BP 138/65 08/10/22 12:00 Pulse Ox 98 08/10/22 12:00 O2 Del Method 08/10/22 08:05 FiO2 24 08/10/22 11:49 08/09/22 08/10/22 08/10/22 22:59 06:59 14:59 Intake Total 2524.667 / 2918.740 829.228 / 3747.968 120.206 / 120.206 Output Total 1550 / 1550 250 / 1800 Balance 974.667 / 1368.740 579.228 / 1947.968 120.206 / 120.206 Weight last 48 hrs Weight 76.748 kg Weight 75.5 kg Physical Exam Narrative: General: intubated, sedated, icteric, pallor HEENT: PERRLA, pupils bilaterally equal and reactive Chest: Normal vesicular breath sounds, no added sounds, equal good air entry bi laterally CVS: S1-S2 regular, no murmurs, no tachycardia, no gallops, no rubs Abdomen: Soft, nontender, no organomegaly, bowel sounds present and sluggish Neuro: Intubated, sedated Urinary Catheter Management: Ugzman: Cath Placed During This Visit: yes Reason for Continuing Indwelling Catheter: Accurate Measurement of Urinary Output in Critically Ill Patients Urinary Catheter Date of Insertion: 08/07/22 Urinary Catheter Time of Insertion: 17:30 Data 08/10/22 04:41 08/10/22 04:41 Micro: Microbiology 08/07/22 17:00 Gram Stain - Final Sputum - Endotracheal Tube Aspirate Sputum Culture - Final 08/07/22 14:48 Urine Culture - Final Urine,Clean Catch A&P Assessment and plan (1) Alcohol withdrawal seizure: (2) Hypercapnic respiratory failure: (3) High anion gap metabolic acidosis: (4) Hepatorenal syndrome: (5) Acute kidney injury: (6) Transaminitis: (7) Lactic acid acidosis: (8) Diabetes: (9) Esophageal varices in alcoholic cirrhosis: (10) Alcohol abuse: (11) Essential hypertension: (12) UTI (urinary tract infection): (13) Hypothermia: Plan 67-year-old with history of chronic alcoholic abuse found to have alcohol withdrawal seizures at home by EMS received Ativan and when present in the ER was found to be hypercapnic, mixed metabolic and respiratory acidosis with high anion gap acidosis, acute kidney injury liver disorder obtunded on BiPAP hence decision was made to intubate to protect airway. Plan: Alcohol abuse/alcohol withdrawal seizure: Wean down propofol and fentanyl. Sedation vacation and plans for extubation in next 24 to 48 hours. IV thiamine 100 mg to be continued. Oral folic acid 1 g daily. Continue phenobarbital taper. Started at 62.5 mg twice daily for next 2 days followed by 32 mg twice daily. Appreciate phenobarbital level. Phenobarbital at 12.1. Keep mean artery pressure around 70 given hepatorenal syndrome. Cannot rule out mild UTI or aspiration pneumonia for now. Blood culture, urine culture, sputum cultures so far negative. MRSA negative. Empirically start on Zosyn for now. For acute kidney injury: With hyperkalemia, high anion gap metabolic acidosis: Hyperkalemia metabolic acidosis has resolved. TRISTEN has resolved. Concerns for hepatorenal syndrome. continue midodrine. stop albumin and octreotide Urine output improving. Hold off on IV fluids. IV Lasix 20 mg one-time. Medical reconciliation done for nephrotoxic drugs. Hold off on lisinopril. Continue to monitor. Alcoholic liver cirrhosis: Transaminitis, hyperbilirubinemia. INR mildly elevated. Child- Adair score 9. Patient is not a good candidate for liver transplant given current alcohol abuse. IV Protonix 40 mg twice daily. Hold off on rosuvastatin for now. Hepatitis C positive Thrombocytopenia: Most likely in setting of chronic alcohol liver disease. Slight worsening today. No active site of bleeding. Continue to monitor. For high anion gap metabolic acidosis: Most likely in setting of lactic acidosis, alcoholic ketosis. Less likely DKA for now. Resolved. History of esophageal varices: CT abdomen pelvis shows portal vein hypertension with extensive portal venous collaterals. Nonhemorrhagic for now. Continue to monitor hemoglobin. Continue Protonix 40 mg twice daily. If in case OG tube comes out will not plan to put any more OG tube until needed and that to under fluoroscopy. Hypertension: Goal blood pressure less than 140/90 mmHg. Keep mean artery pressure around 70 as above. Holding off on antihypertensives for now. Type 2 diabetes mellitus: A1c 5.4. Hold off on any further insulin. On review of medication it seems patient is on a medication called as Levnatinib which is anticancer medication for possible thyroid cancer. Life partner cannot give me any medical history. No medical history present in chart. TSH normal limits. Check PTH. Corrected calcium at 9.8. Patient's care discussed in detail with patient's life partner Ms. Gann on [phone]. Care discussed in detail with Ms. Cason/patient's sister on [phone]. Today patient's care also discussed with one of the daughters and son-in-law at bedside. All the questions were answered. CODE STATUS: Previous hospitalst Discussed in detail with patient's sister on the phone. Patient's sister after talking to multiple family members called back saying they would not want any chest compressions. Limited resuscitation. Patient tolerating tube feeds well. Continue tube feeds at 40 cc/h with free water flushes at 100 cc every 6 hours. Thrombocytopenia. Hold off on heparin for now. Protonix. Will suffice as PVD prophylaxis. Attestations Medical Necessity Statement*: Requires further hospitalization for management of alcohol withdrawal seizures, chronic liver cirrhosis, hepatorenal syndrome, respiratory failure requiring mechanical ventilation Coding Level of Care Code Acute Code for Chg Fwd Diagnoses Alcohol withdrawal seizure F10.939; R56.9 Hypercapnic respiratory failure J96.92 High anion gap metabolic acidosis E87.29 Hepatorenal syndrome K76.7 Acute kidney injury N17.9 Transaminitis R74.01 Lactic acid acidosis E87.20 Diabetes E11.9 Esophageal varices in alcoholic cirrhosis K70.30; I85.10 Alcohol abuse F10.10 Essential hypertension I10 UTI (urinary tract infection) N39.0 Hypothermia T68.XXXA
--- NOTE | 2022-08-10 17:18 | PC.NURSE ---
shift summary: Sedation titrated down per AUG, at this time patient not responding, will breath over vent at times but mostly rides, vs WNL at this time
[2022-08-10] MEDS: propofol 1,000 MG/100 ML INJ 3.96 MG IV (17:37)
[2022-08-10] MEDS: dexmedetomidine 400 MCG in sodium chloride 0.9% (100 ml) 100 ML IV (18:39)
[2022-08-11] VITALS (65 sets, daily range): BP systolic 128–197; BP diastolic 65–100; PULSE 62–95; RESP 15–24; TEMP 36.4–37.5; O2SAT 88–98
[2022-08-11] MEDS: piperacillin-tazobactam 3.375 GM in sodium chloride 0.9% (plus) 50 ML IV ×3 (01:51→17:18)
[2022-08-11 02:53] LABS: Basophils % 0.3 %; Eosinophils # 0.1 10^3/uL (0.0-0.8); Eosinophils % 1.7 %; Hematocrit 34.5 % (42.0-52.0); Hemoglobin 11.3 g/dL (11.7-16.6); Lymphocytes # 0.2 10^3/uL (0.8-4.8); Lymphocytes % 7.8 %; Mean Corpuscular HGB Conc 32.8 g/dL (30.0-36.0); Mean Corpuscular Hemoglobin 30.9 pg (28.0-34.0); Mean Corpuscular Volume 94.3 fl (80-94); Mean Platelet Volume 11.5 fL (7.4-10.4); Monocytes # 0.4 10^3/uL (0.2-0.9); Monocytes % 12.9 %; Neutrophils # 2.26 10^3/uL (1.8-7.7); Neutrophils % 76.6 %; Nucleated Red Blood Cells % 0 %; Platelet Count 39 10^3/cmm (130-400); Red Blood Count 3.66 10^6/uL (4.1-5.3); Red Cell Distribution Width 18.6 % (12.1-15.1)
[2022-08-11 03:21] LABS: Alanine Aminotransferase 52 U/L (0-41); Albumin Level 3.6 g/dL (3.5-5.2); Alkaline Phosphatase 185 U/L (40-130); Anion Gap 13.8 (5-19); Aspartate Amino Transferase 85 U/L (0-40); Blood Urea Nitrogen 17 mg/dL (8-23); Carbon Dioxide 25 mmol/L (22-29); Chloride 106 mmol/L (98-107); Globulin 1.8 g/dL (1.3-4.6); Glomerular Filtration Rate 95.8 mL/min (90-130); Glucose 240 mg/dL (65-115); Osmolality Calculated 301 mOsm/kg (285-295); Potassium 3.8 mmol/L (3.5-5.1); Sodium 141 mmol/L (136-145); Total Bilirubin 3.7 mg/dL (0.15-1.2); Total Protein 5.4 g/dL (6.6-8.7)
[2022-08-11] MEDS: pantoprazole 40 mg SDV IVP ×2 (04:31→17:17)
--- NOTE | 2022-08-11 06:00 | XRR_ITS ---
PROCEDURE INFORMATION: Exam: XR Chest Exam date and time: 08/11/2022 6:18 AM Age: 67 years old Clinical indication: Device placement; Ett placement (vent status); Additional info: Intubated TECHNIQUE: Imaging protocol: Radiologic exam of the chest. Views: 1 view. COMPARISON: CR (CHEST, ) 08/10/2022 5:32 AM FINDINGS: Tubes, catheters and devices: The nasogastric tube extends beyond the diaphragmatic hiatus. The tip is not imaged. The endotracheal tube is appropriately positioned in the distal thoracic trachea with the tip above the shaka. Lungs: Mild ill-defined bilateral lower lung opacity is similar to yesterday. Pleural spaces: There is no pleural effusion or pneumothorax. Heart/Mediastinum: Cardiomediastinal contours are unremarkable. Bones/joints: There is mild degenerative disease of the left shoulder. No acute fracture. XR/XR chest 1V portable [id number] IMPRESSION: 1. Satisfactory endotracheal tube position. 2. NG tube is in the stomach. The tip is not imaged. 3. Stable mild bilateral lower lung opacity
[2022-08-11] MEDS: folic acid 1 mg Tablet PO (09:00)
[2022-08-11] MEDS: midodrine 5 mg TABLET PO ×2 (09:00→17:18)
[2022-08-11] MEDS: multivitamin therapeutic Tablet 1 TAB PO (09:01)
[2022-08-11] MEDS: PHENobarbital 130 mg/mL SDV 1 mL 32.4 MG IV ×2 (09:01→20:22)
[2022-08-11] MEDS: budesonide 0.5 mg/2 mL Neb INHALATION ×2 (10:01→19:58)
--- NOTE | 2022-08-11 12:47 | P.PN_ITS ---
Subjective Subjective: off sedation cxr shows mild congestion opening his eyes but pretty sedated Vitals/I&O/Wt Last Vital Signs Temp 98.2 F 08/11/22 08:00 Pulse 67 08/11/22 12:00 Resp 23 H 08/11/22 10:51 BP 174/80 08/11/22 12:00 Pulse Ox 91 08/11/22 12:00 O2 Del Method 08/11/22 10:01 FiO2 24 08/11/22 10:51 08/10/22 08/11/22 08/11/22 22:59 06:59 14:59 Intake Total 1313.370 / 1483.576 510.717 / 1994.293 10.6 / 10.6 Output Total 850 / 850 250 / 1100 Balance 463.370 / 633.576 260.717 / 894.293 10.6 / 10.6 Weight last 48 hrs Weight 75.296 kg Weight 76.748 kg Physical Exam Narrative: General: intubated, sedated, icteric, pallor HEENT: PERRLA, pupils bilaterally equal and reactive Chest: Normal vesicular breath sounds, no added sounds, equal good air entry bilaterally CVS: S1-S2 regular, no murmurs, no tachycardia, no gallops, no rubs Abdomen: Soft, nontender, no organomegaly, bowel sounds present and sluggish Neuro: Intubated, sedated Urinary Catheter Management: Guzman: Cath Placed During This Visit: yes Reason for Continuing Indwelling Catheter: Accurate Measurement of Urinary Output in Critically Ill Patients Urinary Catheter Date of Insertion: 08/07/22 Urinary Catheter Time of Insertion: 17:30 Data 08/11/22 02:15 08/11/22 02:15 Micro: Microbiology 08/07/22 17:00 Gram Stain - Final Sputum - Endotracheal Tube Aspirate Sputum Culture - Final A&P Assessment and plan (1) Alcohol withdrawal seizure: (2) Hypercapnic respiratory failure: (3) High anion gap metabolic acidosis: (4) Hepatorenal syndrome: (5) Acute kidney injury: (6) Transaminitis: (7) Lactic acid acidosis: (8) Diabetes: (9) Esophageal varices in alcoholic cirrhosis: (10) Alcohol abuse: (11) Essential hypertension: (12) UTI (urinary tract infection): (13) Hypothermia: Plan 67-year-old with history of chronic alcoholic abuse found to have alcohol withdrawal seizures at home by EMS received Ativan and when present in the ER was found to be hypercapnic, mixed metabolic and respiratory acidosis with high anion gap acidosis, acute kidney injury liver disorder obtunded on BiPAP hence decision was made to intubate to protect airway. Plan: Alcohol abuse/alcohol withdrawal seizure: Wean down propofol and fentanyl. Sedation vacation and plans for extubation in next 24 to 48 hours. IV thiamine 100 mg to be continued. Oral folic acid 1 g daily. Continue phenobarbital taper. Started at 62.5 mg twice daily for next 2 days followed by 32 mg twice daily. Appreciate phenobarbital level. Phenobarbital at 12.1. Keep mean artery pressure around 70 given hepatorenal syndrome. Cannot rule out mild UTI or aspiration pneumonia for now. Blood culture, urine culture, sputum cultures so far negative. MRSA negative. Empirically start on Zosyn for now. For acute kidney injury: With hyperkalemia, high anion gap metabolic acidosis: Hyperkalemia metabolic acidosis has resolved. TRISTEN has resolved. Concerns for hepatorenal syndrome. continue midodrine. stop albumin and octreotide Urine output improving. Hold off on IV fluids. IV Lasix 20 mg one-time. Medical reconciliation done for nephrotoxic drugs. Hold off on lisinopril. Continue to monitor. Alcoholic liver cirrhosis: Transaminitis, hyperbilirubinemia. INR mildly elevated. Child- Adair score 9. Patient is not a good candidate for liver transplant given current alcohol abuse. IV Protonix 40 mg twice daily. Hold off on rosuvastatin for now. Hepatitis C positive Thrombocytopenia: Most likely in setting of chronic alcohol liver disease. Slight worsening today. No active site of bleeding. Continue to monitor. For high anion gap metabolic acidosis: Most likely in setting of lactic acidosis, alcoholic ketosis. Less likely DKA for now. Resolved. History of esophageal varices: CT abdomen pelvis shows portal vein hypertension with extensive portal venous collaterals. Nonhemorrhagic for now. Continue to monitor hemoglobin. Continue Protonix 40 mg twice daily. If in case OG tube comes out will not plan to put any more OG tube until needed and that to under fluoroscopy. Hypertension: Goal blood pressure less than 140/90 mmHg. Keep mean artery pressure around 70 as above. Holding off on antihypertensives for now. Type 2 diabetes mellitus: A1c 5.4. Hold off on any further insulin. On review of medication it seems patient is on a medication called as Levnatinib which is anticancer medication for possible thyroid cancer. Life partner cannot give me any medical history. No medical history present in chart. TSH normal limits. Check PTH. Corrected calcium at 9.8. Patient's care discussed in detail with patient's life partner Ms. Gann on [phone]. Care discussed in detail with Ms. Cason/patient's sister on [phone]. Today patient's care also discussed with one of the daughters and son-in-law at bedside. All the questions were answered. CODE STATUS: Previous hospitalst Discussed in detail with patient's sister on the phone. Patient's sister after talking to multiple family members called back saying they would not want any chest compressions. Limited resuscitation. Patient tolerating tube feeds well. Continue tube feeds at 40 cc/h with free water flushes at 100 cc every 6 hours. Thrombocytopenia. Hold off on heparin for now. Protonix. Will suffice as PVD prophylaxis. 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
--- NOTE | 2022-08-11 18:40 | PC.NURSE ---
Sedation has been off all shift and pt is not able to follow commands. Blister was noted to left heel and heel protectors placed.
[2022-08-11] MEDS: dexmedetomidine 400 MCG in sodium chloride 0.9% (100 ml) 100 ML IV (20:22)
[2022-08-11 23:30] LABS: HEP C RNA Viral Load Quant <1.18 NOT DETECTED Log IU/mL (NOT DETECTED); HEP C RNA Viral Load Quant <15 NOT DETECTED IU/mL (NOT DETECTED)
[2022-08-12] VITALS (55 sets, daily range): BP systolic 144–204; BP diastolic 69–101; PULSE 60–91; RESP 15–27; TEMP 36.1–37.1; O2SAT 90–98
[2022-08-12] MEDS: piperacillin-tazobactam 3.375 GM in sodium chloride 0.9% (plus) 50 ML IV ×3 (01:47→17:53)
[2022-08-12 03:23] LABS: Basophils % 0.4 %; Eosinophils # 0.1 10^3/uL (0.0-0.8); Eosinophils % 2.5 %; Hematocrit 35.9 % (42.0-52.0); Hemoglobin 12.1 g/dL (11.7-16.6); Lymphocytes # 0.3 10^3/uL (0.8-4.8); Lymphocytes % 9.3 %; Mean Corpuscular HGB Conc 33.7 g/dL (30.0-36.0); Mean Corpuscular Hemoglobin 30.7 pg (28.0-34.0); Mean Corpuscular Volume 91.1 fl (80-94); Mean Platelet Volume 10.7 fL (7.4-10.4); Monocytes # 0.5 10^3/uL (0.2-0.9); Monocytes % 16.4 %; Nucleated Red Blood Cells % 0 %; Platelet Count 39 10^3/cmm (130-400); Red Blood Count 3.94 10^6/uL (4.1-5.3); Red Cell Distribution Width 18.6 % (12.1-15.1); White Blood Count 2.8 10^3/uL (4.0-10.0)
[2022-08-12 03:30] LABS: Blood Gas Allen Test Pos; Blood Gas Operator Identificat JB; Blood Gas Sample Site Radial, right; Blood Gas Sample Type Arterial; Ionized Calcium Level - ABG 1.2 mmol/L (1.1-1.4); Oxygen Device VENT; Potassium Level - ABG 3.7 mmol/L (3.5-5.0)
[2022-08-12 03:32] LABS: ABG PCO2 36.8 mmHg (35-45); ABG PH Result 7.48 (7.35-7.45); Alveolar-Arterial Oxygen Gradi 7.8 mmHg (5-10); Arterial Blood Gas Hematocrit 39.7 % (42-52); Base Excess ABG 3.8 mmol/L (-2.0-2.0); Carboxyhemoglobin 1.7 %THgb (0.4-20.1); HCO3 ABG 27.4 mmol/L (22-26); HGB O2 Sat 91.7 % (95-100); Methemoglobin 0.3 % (0.4-1.5); Oxygen Saturation ABG 93.5; PO2 ABG 64.2 mmHg (80.0-100.0); Total Hemoglobin 12.9 g/dL (14-18)
[2022-08-12 03:33] LABS: Blood Gas Tidal Volume 0.45
[2022-08-12 03:39] LABS: Blood Urea Nitrogen 20 mg/dL (8-23); Carbon Dioxide 26 mmol/L (22-29); Chloride 107 mmol/L (98-107); Glomerular Filtration Rate 133.6 mL/min (90-130); Glucose 253 mg/dL (65-115); Osmolality Calculated 307 mOsm/kg (285-295); Sodium 143 mmol/L (136-145)
[2022-08-12] MEDS: pantoprazole 40 mg SDV IVP ×2 (04:26→17:16)
[2022-08-12] MEDS: budesonide 0.5 mg/2 mL Neb INHALATION ×2 (08:03→20:06)
[2022-08-12] MEDS: multivitamin therapeutic Tablet 1 TAB PO (08:12)
[2022-08-12] MEDS: PHENobarbital 130 mg/mL SDV 1 mL 32.4 MG IV (08:12)
[2022-08-12] MEDS: folic acid 1 mg Tablet PO (08:12)
[2022-08-12 10:53] LABS: Ketone (Acetest) Serum Negative (Negative)
--- NOTE | 2022-08-12 12:12 | PM.PN ---
Subjective Subjective: seen today pt opened his eye and responded by nodding to questions daughter and son in law at bedside. they were able to talk to pt as well he appears quite drowsy and lethargic however was up briefly he has been off all sedatives, phenobarb also discontinued Vitals/I&O/Wt Last Vital Signs Temp 97.0 F L 08/12/22 07:00 Pulse 65 08/12/22 08:04 Resp 16 08/12/22 11:12 BP 155/80 08/12/22 08:00 Pulse Ox 93 08/12/22 11:12 O2 Del Method 08/12/22 08:04 FiO2 24 08/12/22 11:12 08/11/22 08/12/22 08/12/22 22:59 06:59 14:59 Intake Total 1058.346 / 1118.946 479 / 1597.946 Output Total 600 / 600 250 / 850 Balance 458.346 / 518.946 229 / 747.946 Weight last 48 hrs Weight 76.34 kg Weight 75.296 kg Physical Exam Narrative: General: intubated, icteric, pallor HEENT: EOMI, PERRLA Chest: Normal vesicular breath sounds, no added sounds, equal good air entry bilaterally CVS: S1-S2 regular, no murmurs, no tachycardia, no gallops, no rubs Abdomen: Soft, nontender, no organomegaly, bowel sounds present Neuro: Intubated, sedated Urinary Catheter Management: Guzman: Cath Placed During This Visit: yes Reason for Continuing Indwelling Catheter: Accurate Measurement of Urinary Output in Critically Ill Patients Urinary Catheter Date of Insertion: 08/07/22 Urinary Catheter Time of Insertion: 17:30 Data 08/12/22 02:36 08/12/22 02:36 A&P Assessment and plan (1) Alcohol withdrawal seizure: (2) Hypercapnic respiratory failure: (3) High anion gap metabolic acidosis: (4) Hepatorenal syndrome: (5) Acute kidney injury: (6) Transaminitis: (7) Lactic acid acidosis: (8) Diabetes: (9) Esophageal varices in alcoholic cirrhosis: (10) Alcohol abuse: (11) Essential hypertension: (12) UTI (urinary tract infection): (13) Hypothermia: Plan 67-year-old with history of chronic alcoholic abuse found to have alcohol withdrawal seizures at home by EMS received Ativan and when present in the ER was found to be hypercapnic, mixed metabolic and respiratory acidosis with high anion gap acidosis, acute kidney injury liver disorder obtunded on BiPAP hence decision was made to intubate to protect airway. Plan: Alcohol abuse/alcohol withdrawal seizure: Patient has been off sedation for > 24 hours. Phenobarbital stopped today. He has completed taper. IV thiamine 100 mg to be continued. Oral folic acid 1 g daily. Will check another phenobarb level in AM. Check phosphorus level Check magnesium level MRSA nares negative BCx NTD. Continue empiric zosyn. Pt did tolerate pressure support trial today however was very drowsy. Decision made not to extubate. Continue on low dose fentanyl for pain May use precedex drip TRISTEN - Resolved Suscpicion of hepatorenal syndrome with hyperkalemia and HAGMA - resolved Pt did receive octreotide and albumin briefly Kidney function has normalized. Continue Midodrine Medical reconciliation done for nephrotoxic drugs. Hold off on lisinopril. Continue to monitor. Alcoholic liver cirrhosis: Transaminitis, hyperbilirubinemia. INR mildly elevated. Child- Adair score 9. Patient is not a good candidate for liver transplant given current alcohol abuse. IV Protonix 40 mg twice daily. Hold off on rosuvastatin for now. Hepatitis C positive Thrombocytopenia: Most likely in setting of chronic alcohol liver disease. Slight worsening today. No active site of bleeding. Continue to monitor. History of esophageal varices: CT abdomen pelvis shows portal vein hypertension with extensive portal venous collaterals. Nonhemorrhagic for now. Continue to monitor hemoglobin. Continue Protonix 40 mg twice daily. If in case OG tube comes out will not plan to put any more OG tube until needed and that to under fluoroscopy. - Hold off on pharmacological DVT PPX. Hypertension: Goal blood pressure less than 140/90 mmHg. Keep mean artery pressure around 70 as above. Holding off on antihypertensives for now. Type 2 diabetes mellitus: A1c 5.4. Hold off on any further insulin. On review of medication it seems patient is on a medication called as Levnatinib which is anticancer medication for possible thyroid cancer. Life partner cannot give me any medical history. No medical history present in chart. TSH normal limits. Check PTH. Corrected calcium at 9.8. Patient's daughter and son in law present at bedside. Updated them with the plan for extubation in next 24-48 hours possibly once patient more awake and alert. CODE STATUS: Previous hospitalst Discussed in detail with patient's sister on the phone. Patient's sister after talking to multiple family members called back saying they would not want any chest compressions. Limited resuscitation. Patient tolerating tube feeds well. Continue tube feeds at 40 cc/h with free water flushes at 100 cc every 6 hours. Thrombocytopenia. Hold off on heparin for now. Protonix. Will suffice as PVD prophylaxis. Attestations Medical Necessity Statement*: Continue ICU level care. Plans for extubation in near future. Critical Care Time: Critical Care Time (min): 30 Diagnoses Alcohol withdrawal seizure F10.939; R56.9 Hypercapnic respiratory failure J96.92 High anion gap metabolic acidosis E87.29 Hepatorenal syndrome K76.7 Acute kidney injury N17.9 Transaminitis R74.01 Lactic acid acidosis E87.20 Diabetes E11.9 Esophageal varices in alcoholic cirrhosis K70.30; I85.10 Alcohol abuse F10.10 Essential hypertension I10 UTI (urinary tract infection) N39.0 Hypothermia T68.XXXA Time Spent (min) 30
[2022-08-12 13:37] LABS: Phosphorus 1.2 mg/dL (2.5-4.5)
--- NOTE | 2022-08-12 14:19 | PC.SOCIAL ---
IMM IMM not updated at this time due to patient being intubated
[2022-08-12 17:07] LABS: Glucose Point of Care 167 mg/dL (70-110)
[2022-08-12] MEDS: phosphorus 250 mg Tablet PO (17:16)
[2022-08-12] MEDS: hyDRALAzine 20 mg/mL INJ 1 mL 5 MG IVP (17:16)
--- NOTE | 2022-08-12 17:47 | PM.CONSULT ---
Providers/Reason For Consult Consulting Physician/Specialty*: Jesus Wells MD / Pulmonary Critical Care Reason for Consult*: To help with ventilator weaning and extubation Requesting Physician: Ryann Judge MD Attending Physician: Ryann Judge MD History of Present Illness History of Present Illness Varun Lee is a 67 year old male-chronic alcoholic with past medical history of hypertension and diabetes mellitus came to ED for altered mental status and seizures. He was found to be obtunded in the emergency room, not responding to painful stimulus and ABG showed mild acidosis with hypercapnia-failed BiPAP and got intubated-admitted to ICU for further management alcohol withdrawal seizures and intoxication. As per the life partner patient drinks up to 10 to 12 cans of [place] Light and 4-5 shots of whiskey a day but had not had alcohol for 3 to 4 days prior to admission. His initial labs were significant for high anion gap metabolic acidosis, TRISTEN and deranged liver functions Patient was started on empiric Zosyn to cover for possible aspiration. Echocardiogram08/08/2022-showed normal LV size, systolic function 65%. Grade 2 diastolic dysfunction. During hospitalization there is some suspicion for seizure activity-he received tapering doses of phenobarbital Hospitalist requested to help with weaning off from ventilator. 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 Review of Systems General: Reports: ROS unobtainable due to endotracheal tube, ROS unobtainable due to medical condition and ROS unobtainable due to mental status Medications/Allergies Home Medications Medication Instructions Recorded Confirmed Last Taken Type metformin 1,000 mg tablet 1,000 mg PO BID 05/14/22 08/07/22 Unknown History folic acid 1 mg tablet 1 mg PO DAILY 08/07/22 08/07/22 Unknown History glipizide 2.5 mg tablet, extended 2.5 mg PO DAILY 08/07/22 08/07/22 Unknown History release 24 hr lenvatinib 12 mg/day (4 mg x 3) 12 mg PO DAILY 08/07/22 08/07/22 Unknown History capsule (Lenvima) lisinopril 40 mg tablet 40 mg PO DAILY 08/07/22 08/07/22 Unknown History nadolol 40 mg tablet 40 mg PO DAILY 08/07/22 08/07/22 Unknown History pantoprazole 40 mg tablet,delayed 40 mg PO BID 08/07/22 08/07/22 Unknown History release rosuvastatin 5 mg tablet 5 mg PO BEDTIME 08/07/22 08/07/22 Unknown History Allergies Allergy/AdvReac Type Severity Reaction Status Date / Time No Known Allergies Allergy Unverified 05/14/22 15:19 Current Medications Generic Name Dose Route Start Last Admin Trade Name Freq PRN Reason Stop Dose Admin Budesonide 0.5 mg 08/07/22 18:00 08/12/22 08:03 Budesonide 0.5 Mg/2 Ml Neb INHALATION 0.5 mg BID DEACON Administration Folic Acid 1 mg 08/08/22 09:00 08/12/22 08:12 Folic Acid 1 Mg Tablet PO 1 mg DAILY DEACON Administration Piperacillin Sod/Tazobactam 50 mls @ 12.5 mls/hr 08/07/22 18:00 08/12/22 14:24 Sod 3.375 gm/ Sodium Chloride IV 12.5 mls/hr Q8H DEACON Administration Protocol Fentanyl 1,000 mcg/ Sodium 100 mls @ 0 mls/hr 08/07/22 17:00 08/10/22 15:00 Chloride IV 0 mcg/hr .Q0M DEACON 0 mls/hr Titration Protocol Per Protocol Propofol 1,000 mg in 100 mls @ 0 mls/hr 08/07/22 21:00 08/10/22 23:16 Diprivan IV 0 mcg/kg/min .Q0M DEACON 0 mls/hr Titration Protocol Per Protocol Dexmedetomidine HCl 400 mcg/ 104 mls @ 0 mls/hr 08/10/22 08:45 08/11/22 20:22 Sodium Chloride IV 0.2 mcg/kg/hr .Q0M DEACON 3.99 mls/hr Administration Protocol Per Protocol Multivitamins Therapeutic 1 tab 08/08/22 09:00 08/12/22 08:12 Multivitamin Therapeutic Tablet PO 1 tab DAILY DEACON Administration Pantoprazole Sodium 40 mg 08/07/22 17:00 08/12/22 17:16 Pantoprazole 40 Mg Sdv IVP 40 mg Q12H DEACON Administration Potassium Phosphate 250 mg 08/12/22 18:00 08/12/22 17:16 Phosphorus 250 Mg Tablet PO 08/14/22 09:01 250 mg BID DEACON Administration PFSH Acute PFSH: Medical History Alcohol abuse Alcohol withdrawal seizure Diabetes Essential hypertension History of cirrhosis of liver Surgical History Hx of adenoidectomy Hx of appendectomy Hx of tonsillectomy Family History Other Cancer Hypertension Lung disease Prostate cancer Social History Smoking and tobacco status: current every day smoker Alcohol intake: current Caregiver/support person: Yes Lives independently: Yes Household members: other Details: significant other Housing: House Marital status: Life Partner Vitals/I&O/Wt Last Vital Signs Temp 97.2 F L 08/12/22 15:00 Pulse 91 08/12/22 17:00 Resp 27 H 08/12/22 17:35 BP 199/95 08/12/22 17:00 Pulse Ox 95 08/12/22 17:35 O2 Del Method 08/12/22 08:04 FiO2 24 08/12/22 17:35 08/12/22 08/12/22 08/12/22 06:59 14:59 22:59 Intake Total 479 / 1597.946 783 / 783 Output Total 250 / 850 450 / 450 Balance 229 / 747.946 333 / 333 Weight last 48 hrs Weight 168 lb 4.8 oz Weight 166 lb Physical Exam Narrative: PHYSICAL EXAM: General: lying in bed, sedated and intubated, barely opening eyes and squeezes fingers when asked-appears weak HEENT:NCAT, PERRLA, EOMI Neck: Supple Lungs: Clear, Heart: s1/s2, RRR Abd: soft, NT, ND, BS + Normoactive Extremities: No edema [employer]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 SKIN: no rash Urinary Catheter Management: Guzman: Cath Placed During This Visit: yes Reason for Continuing Indwelling Catheter: Accurate Measurement of Urinary Output in Critically Ill Patients Urinary Catheter Date of Insertion: 08/07/22 Urinary Catheter Time of Insertion: 17:30 Data 08/12/22 02:36 08/12/22 02:36 Other Labs: Radiology Impressions Head CT 08/07/22 14:04 IMPRESSION: 1. No evidence of intracranial hemorrhage or mass effect. 2. Mild small vessel changes. Mild parenchymal volume loss. 3. Vascular calcification. 4. No acute intracranial findings. Abdomen/Pelvis CT 08/07/22 15:13 IMPRESSION: 1. 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 Splenomegaly. 3. Portal venous hypertension with extensive portal venous collaterals and small upper abdominal varices. 4. Normal renal parenchymal enhancement. No hydronephrosis. 5. Normal caliber abdominal aorta. 6. Sigmoid diverticulosis. 7. Enlarged prostate measuring 4.1 CM. 8. No other acute findings. Notified Lico Parry DO at 08/07/2022 4:22 PM. Gallbladder Ultrasound 08/07/22 15:13 IMPRESSION: 1. Markedly abnormal liver. Most consistent with a cirrhotic fibrotic appearing liver. 2. Large tubular structures in the central liver contains a lobulated mass. This is a large recanalized umbilical vein with thrombus as well as also seen on the recent CT. 3. Mild sludge-filled gallbladder. Chest X-Ray 08/11/22 06:00 IMPRESSION: 1. Satisfactory endotracheal tube position. 2. NG tube is in the stomach. The tip is not imaged. 3. Stable mild bilateral lower lung opacity Laboratory Results WBC 2.8 10^3/uL (4.0-10.0) L 08/12/22 02:36 RBC 3.94 10^6/uL (4.1-5.3) L 08/12/22 02:36 Hgb 12.1 g/dL (11.7-16.6) 08/12/22 02:36 Hct 35.9 % (42.0-52.0) L 08/12/22 02:36 MCV 91.1 fl (80-94) 08/12/22 02:36 MCH 30.7 pg (28.0-34.0) 08/12/22 02:36 MCHC 33.7 g/dL (30.0-36.0) 08/12/22 02:36 RDW 18.6 % (12.1-15.1) H 08/12/22 02:36 Plt Count 39 10^3/cmm (130-400) L 08/12/22 02:36 MPV 10.7 fL (7.4-10.4) H 08/12/22 02:36 Neut % (Auto) 71.0 % 08/12/22 02:36 Lymph % (Auto) 9.3 % 08/12/22 02:36 [place] % (Auto) 16.4 % 08/12/22 02:36 Eos % (Auto) 2.5 % 08/12/22 02:36 Baso % (Auto) 0.4 % 08/12/22 02:36 Neut # (Auto) 2.00 10^3/uL (1.8-7.7) 08/12/22 02:36 Lymph # (Auto) 0.3 10^3/uL (0.8-4.8) L 08/12/22 02:36 [place] # (Auto) 0.5 10^3/uL (0.2-0.9) 08/12/22 02:36 Eos # (Auto) 0.1 10^3/uL (0.0-0.8) 08/12/22 02:36 Baso # (Auto) 0.0 10^3/uL (0.0-0.1) 08/12/22 02:36 Nucleated RBC % (auto) 0 % 08/12/22 02:36 Nucleated RBCs # 0.0 /100WBC 08/12/22 02:36 PT 19.80 SECONDS (12.1-14.9) H 08/08/22 01:20 INR 1.62 (0.8-1.2) H 08/08/22 01:20 APTT 33.2 SECONDS (23.9-36.7) 08/07/22 16:34 Specimen Type Arterial 08/12/22 03:10 Sample Site Radial, right 08/12/22 03:10 ABG pH 7.48 (7.35-7.45) H 08/12/22 03:10 ABG pCO2 36.8 mmHg (35-45) 08/12/22 03:10 ABG pO2 64.2 mmHg (80.0-100.0) L 08/12/22 03:10 ABG HCO3 27.4 mmol/L (22-26) H 08/12/22 03:10 ABG O2 Saturation 93.5 08/12/22 03:10 ABG Base Excess 3.8 mmol/L (-2.0-2.0) H 08/12/22 03:10 Silvano Test Pos 08/12/22 03:10 A-a O2 Gradient 7.8 mmHg (5-10) 08/12/22 03:10 Hematocrit 39.7 % (42-52) L 08/12/22 03:10 Hgb O2 Saturation 91.7 % (95-100) L 08/12/22 03:10 Carboxyhemoglobin 1.7 %THgb (0.4-20.1) 08/12/22 03:10 Methemoglobin 0.3 % (0.4-1.5) L 08/12/22 03:10 Total Hemoglobin 12.9 g/dL (14-18) L 08/12/22 03:10 Sodium 140.0 mmol/L (131-143) 08/12/22 03:10 Potassium 3.7 mmol/L (3.5-5.0) 08/12/22 03:10 Glucose 258.0 mg/dL (70-115) H 08/12/22 03:10 Ionized Calcium 1.2 mmol/L (1.1-1.4) 08/12/22 03:10 O2 Delivery Device Vent 08/12/22 03:10 O2 Liters/Min 3.0 % 08/07/22 14:18 FiO2 24.0 % 08/12/22 03:10 Tidal Volume 0.45 08/12/22 03:10 PEEP 5.0 cmH20 08/12/22 03:10 House Manager ID Juan Antonio 08/12/22 03:10 Sodium 143 mmol/L (136-145) 08/12/22 02:36 Potassium 4.0 mmol/L (3.5-5.1) 08/12/22 02:36 Chloride 107 mmol/L (98-107) 08/12/22 02:36 Carbon Dioxide 26 mmol/L (22-29) 08/12/22 02:36 Anion Gap 14.0 (5-19) 08/12/22 02:36 BUN 20 mg/dL (8-23) 08/12/22 02:36 Creatinine 0.6 mg/dL (0.7-1.2) L 08/12/22 02:36 GFR Calculation 133.6 mL/min (90-130) H 08/12/22 02:36 Glucose 253 mg/dL (65-115) H 08/12/22 02:36 POC Glucose 167 mg/dL (70-110) H 08/12/22 16:43 Estimat Average Glucose 108 08/08/22 01:20 Hemoglobin A1c 5.4 % (4.0-6.0) 08/08/22 01:20 Calculated Osmolality 307 mOsm/kg (285-295) H 08/12/22 02:36 Lactic Acid 3.7 mmol/L (0.5-2.2) H 08/07/22 14:56 Lactic Acid (Sepsis) 2.8 mmol/L (0.5-2.2) H 08/07/22 19:00 Calcium 8.0 mg/dL (8.5-10.5) L 08/12/22 02:36 Phosphorus 1.2 mg/dL (2.5-4.5) L 08/12/22 10:20 Magnesium 2.0 mg/dL (1.7-2.3) 08/12/22 02:36 Iron 241 ug/dL (59-158) H 08/07/22 12:45 TIBC 247 mcg/dl 08/07/22 12:45 % Saturation 97.5 % (20-50) H 08/07/22 12:45 Unsat Iron Binding 6 ug/dL (112-347) L 08/07/22 12:45 Total Bilirubin 3.7 mg/dL (0.15-1.2) H 08/11/22 02:15 AST 85 U/L (0-40) H 08/11/22 02:15 ALT 52 U/L (0-41) H 08/11/22 02:15 Alkaline Phosphatase 185 U/L (40-130) H 08/11/22 02:15 Ammonia 53 umol/L (16-60) 08/09/22 03:30 Creatine Kinase 242 U/L (39-308) 08/09/22 17:20 Total Protein 5.4 g/dL (6.6-8.7) L 08/11/22 02:15 Albumin 3.6 g/dL (3.5-5.2) 08/11/22 02:15 Globulin 1.8 g/dL (1.3-4.6) 08/11/22 02:15 Triglycerides 118 mg/dL (0-150) 08/08/22 09:06 Cholesterol 177 mg/dL (0-200) 08/08/22 09:06 LDL Cholesterol, Calc 131 mg/dL (50-129) H 08/08/22 09:06 Total VLDL Cholesterol 24 mg/dL (0-30) 08/08/22 09:06 HDL Cholesterol 22 mg/dL (60-100) L 08/08/22 09:06 Cholesterol/HDL Ratio 8.05 mg/dL (1.0-5.00) H 08/08/22 09:06 Lipase 119 U/L (13-60) H 08/07/22 12:45 Vitamin B12 1835 pg/mL (232-1245) H 08/07/22 18:10 Folate > 20.0 ng/mL (4.5-32.2) 08/07/22 18:10 Procalcitonin 1.16 ng/mL (0-0.5) H 08/07/22 12:45 TSH 1.22 uIU/mL (0.27-4.20) 08/07/22 18:10 PTH Intact 29.2 pg/mL (15-65) 08/07/22 22:40 Calcium (PTH Intact) 9.8 mg/dL (8.5-10.5) 08/07/22 22:40 Urine Color Dark yellow (Yellow) 08/07/22 14:48 Urine Appearance Hazy (CLEAR) A 08/07/22 14:48 Urine pH 5 (5-7) 08/07/22 14:48 Ur Specific [place] 1.030 (1.005-1.030) 08/07/22 14:48 Urine Protein 3+ (Negative) H 08/07/22 14:48 Urine Glucose (UA) Norm (Normal) 08/07/22 14:48 Urine Ketones 1+ (Negative) H 08/07/22 14:48 Urine Blood 3+ (Negative) H 08/07/22 14:48 Urine Nitrate Negative (Negative) 08/07/22 14:48 Urine Bilirubin 2+ (Negative) H 08/07/22 14:48 Urine Urobilinogen 8 mg/dL (Negative) H 08/07/22 14:48 Ur Leukocyte Esterase Trace (Negative) H 08/07/22 14:48 Urine RBC 80-100 /hpf (0-2) H 08/07/22 14:48 Urine WBC 0-4 /hpf (0-5) H 08/07/22 14:48 Ur Squamous Epith Cells 0-4 /hpf (0-5) H 08/07/22 14:48 Amorphous Sediment 4+ /hpf 08/07/22 14:48 Urine Bacteria Trace /hpf (NONE) 08/07/22 14:48 Urine Opiates Screen Negative ng/mL (Negative) 08/07/22 14:48 Ur Barbiturates Screen Negative ng/mL (Negative) 08/07/22 14:48 Ur Phencyclidine Scrn Negative ng/mL (Negative) 08/07/22 14:48 Ur Amphetamines Screen Negative ng/mL (Negative) 08/07/22 14:48 Phenobarbital 16.3 ug/mL (10-30) 08/11/22 02:15 U Benzodiazepines Scrn Negative ng/mL (Negative) 08/07/22 14:48 Urine Cocaine Screen Negative ng/mL (Negative) 08/07/22 14:48 U Marijuana (THC) Screen Positive ng/mL (Negative) H 08/07/22 14:48 Ethyl Alcohol < 10 mg/dL (0-10) 08/07/22 12:45 Serum Ketones Negative (Negative) 08/12/22 10:20 Hepatitis A IgM Ab Non-reactive (Nonreactive) 08/07/22 22:40 Hep Bs Antigen Non-reactive (Nonreactive) 08/07/22 22:40 Hep Bs Antibody 5.3 (11.5-1000) L 08/07/22 22:40 Hep B Core Total Ab Non-reactive (Nonreactive) 08/07/22 22:40 Hepatitis C Antibody Reactive (Nonreactive) H 08/07/22 22:40 HCV RNA (PCR) IUs/ml <1.18 not detected Log IU/mL (NOT DETECTED) 08/09/22 00:59 HCV RNA (PCR) IU log10 <15 not detected IU/mL (NOT DETECTED) 08/09/22 00:59 A&P Assessment and plan (1) Hypercapnic respiratory failure: (2) Hypophosphatemia: (3) Diabetes: (4) Alcohol withdrawal seizure: (5) Alcohol abuse: (6) Difficult ventilator weaning: (7) Thrombocytopenia: Plan #Altered mental status/seizures secondary to alcohol withdrawal-resulting hypercapnic respiratory failure-requiring intubation and mechanical ventilation #Hypophosphatemia-secondary to alcohol #Underlying liver cirrhosis #Diabetes with moderately controlled sugars #Thrombocytopenia-secondary to alcohol disorder/cirrhosis/less likely HIT as it dropped 30- 50% in < 5 days; no evidence of thrombus, possible other causes (4T score 2 low probalility) -Currently intubated requiring minimal vent settings with FiO2 24% -Patient is on fentanyl 25 mcg/hour and Precedex -Today tolerated pressure support ventilation -Completed tapering dose of phenobarbital-a bit more awake and following commands-although appeared extremely weak -Serum phosphorus-1.2-started supplementation to help with muscle weakness -Other electrolytes are within normal limits --She was previously on IV insulin which was discontinued-started on scale coverage for uncontrolled sugars -Currently on tube feeding -Patient is +9 L since admission-I am going to give Lasix 40 Mg 1 dose tonight Plan is to hold off tube feeding tomorrow morning, hold off sedation and will continue with spontaneous breathing trials and possible extubation ICU CHECKLIST: Problem list updated Verbal orders reviewed and signed Code Status: Limited Disposition: Patient will stay in ICU Critically ill: Yes MD discussed with: Hospitalist, RN, RT taking care of the patient Analgesia: Fentanyl Glycemic Control: Insulin Nutrition: Glucerna tube feeding Restraint Renewal (within 24 hrs): Yes Ulcer Prophylaxis: PPI Chemical Thromboprophylaxis: Prophylaxis: Heparin held in view of thrombocytopenia Mechanical Thromboprophylaxis: SCDs Need for Central line: N/A Need for Guzman catheter: Yes urine output monitoring Critical Care Time (No Overlap): 55 min This patient has a high probability of clinically significant, sudden or life threatening deterioration of the patient's (neurological, pulmonary, hepatic) systems required my full, direct attention, the highest level of physician preparedness for urgent intervention and personal management. I managed/supervised life or organ supporting interventions that required frequent physician assessment. I devoted my full attention in the ICU to the direct care of this patient for the period of time indicated above. Time I spent with family or surrogate(s) is included only if the patient was incapable of providing necessary information or participating in decision making. This time includes the following services provided: Telemetry review Mechanical Ventilation Hemodynamic interpretation, assessment and management Review and interpretation of CXR Review and interpretation of lab values Review and interpretation of microbiologic data and culture results Review of medications and administration Review and interpretation of Nutrition requirements and management Discussion of management with other consultants and services Clinical update to family members [x] Data and vital sign review and interpretation [x] Patient assessment, examination and intervention [x] Documentation [x] Medication orders and management Time spent for teaching as well as performing procedures are billed separately and is not included in this note Consult Attestations Medical Necessity Statement: Continue ICU stay for possible extubation tomorrow and High Time for a total of 55 minutes, includes reviewing past or interval history, examining/interviewing patient, placing orders, discussing plan of care with staff, communicating with other healthcare providers, documenting encounter and coordinating care Diagnoses Hypercapnic respiratory failure J96.92 Hypophosphatemia E83.39 Diabetes E11.9 Alcohol withdrawal seizure F10.939; R56.9 Alcohol abuse F10.10 Difficult ventilator weaning Z99.11 Thrombocytopenia D69.6 Time Spent (min) 55
[2022-08-12] MEDS: FUROsemide 10 mg/mL SDV 4mL 40 MG IVP (23:23)
[2022-08-13] VITALS (61 sets, daily range): BP systolic 136–195; BP diastolic 65–94; PULSE 67–120; RESP 17–23; TEMP 36.3–37.1; O2SAT 91–100
--- NOTE | 2022-08-13 00:04 | PC.NURSE ---
Bedside Report completated prasanth Martínez RN. ID band in place. Allergy band in place. Bedside report included status update, physical assessment, pain, problem, tubes/lines, wounds, and goals for shift.
[2022-08-13 00:27] LABS: Glucose Point of Care 248 mg/dL (70-110)
[2022-08-13] MEDS: piperacillin-tazobactam 3.375 GM in sodium chloride 0.9% (plus) 50 ML IV ×3 (01:21→20:15)
--- NOTE | 2022-08-13 01:27 | PC.NURSE ---
Icreased BP. Dr. Eddy made aware. New order for hydralazine 5mg IVP ONCE.
[2022-08-13] MEDS: hyDRALAzine 20 mg/mL INJ 1 mL 5 MG IVP ×2 (01:30→20:34)
[2022-08-13 03:33] LABS: Eosinophils # 0.1 10^3/uL (0.0-0.8); Eosinophils % 2.3 %; Hematocrit 38.2 % (42.0-52.0); Hemoglobin 12.7 g/dL (11.7-16.6); Lymphocytes # 0.3 10^3/uL (0.8-4.8); Lymphocytes % 8.3 %; Mean Corpuscular HGB Conc 33.2 g/dL (30.0-36.0); Mean Corpuscular Hemoglobin 31.1 pg (28.0-34.0); Mean Corpuscular Volume 93.4 fl (80-94); Monocytes # 0.6 10^3/uL (0.2-0.9); Monocytes % 16.3 %; Neutrophils # 2.76 10^3/uL (1.8-7.7); Neutrophils % 71.6 %; Nucleated Red Blood Cells % 0 %; Platelet Count 56 10^3/cmm (130-400); Red Blood Count 4.09 10^6/uL (4.1-5.3); Red Cell Distribution Width 19.3 % (12.1-15.1); White Blood Count 3.9 10^3/uL (4.0-10.0)
[2022-08-13 03:48] LABS: Anion Gap 14.7 (5-19); Blood Urea Nitrogen 21 mg/dL (8-23); Calcium 8.4 mg/dL (8.5-10.5); Carbon Dioxide 25 mmol/L (22-29); Chloride 105 mmol/L (98-107); Glomerular Filtration Rate 111.8 mL/min (90-130); Glucose 265 mg/dL (65-115); Magnesium 1.9 mg/dL (1.7-2.3); Osmolality Calculated 304 mOsm/kg (285-295); Phosphorus 1.6 mg/dL (2.5-4.5); Potassium 3.7 mmol/L (3.5-5.1); Sodium 141 mmol/L (136-145)
[2022-08-13] MEDS: pantoprazole 40 mg SDV IVP (04:04)
--- NOTE | 2022-08-13 05:47 | PC.NURSE ---
Tube Feed stopped @0400. Fentanyl and Precedex stopped @0530.
[2022-08-13 06:09] LABS: ABG PCO2 38.4 mmHg (35-45); ABG PH Result 7.46 (7.35-7.45); Arterial Blood Gas Hematocrit 41.1 % (42-52); Base Excess ABG 3.4 mmol/L (-2.0-2.0); Blood Gas Allen Test Pos; Blood Gas Sample Type Arterial; Carboxyhemoglobin 1.8 %THgb (0.4-20.1); HCO3 ABG 27.3 mmol/L (22-26); HGB O2 Sat 91.9 % (95-100); Ionized Calcium Level - ABG 1.2 mmol/L (1.1-1.4); Methemoglobin 0.4 % (0.4-1.5); Oxygen Saturation ABG 93.9; PO2 ABG 67.8 mmHg (80.0-100.0); Potassium Level - ABG 3.7 mmol/L (3.5-5.0); Total Hemoglobin 13.4 g/dL (14-18)
[2022-08-13 06:10] LABS: Blood Gas Operator Identificat JB; Blood Gas Sample Site Radial, right; Blood Gas Tidal Volume 0.45; Oxygen Device VENT
--- NOTE | 2022-08-13 06:21 | PC.NURSE ---
Pt BP high, pt appears to be agitated. Dr. Eddy updated. New order to turn Precdex on.
[2022-08-13 06:42] LABS: Glucose Point of Care 254 mg/dL (70-110)
[2022-08-13] MEDS: insulin lispro 100 unit/1 mL SUBCUT ×2 (06:45→11:27)
--- NOTE | 2022-08-13 08:00 | XR_ITS ---
WS: [id number] Portable AP upright chest, 08/13/2022 Clinical Data: follow up Comparison: Portable chest, 08/11/2022 Findings: No nodules, masses or effusions are seen. The heart is normal. The pulmonary vascularity is not increased. No pneumonia or pneumothorax is seen. The patchy opacity at the right lung base has d iminished. The opacity at the left lung base remains the same. The endotracheal tube and nasogastric tube remain in the same position. Monitor leads are on the chest wall. XR/XR chest 1V portable [id number] Impression: 1. Slight improvement in opacity at right lung base and no change in opacity at left lung base. 2. No change in position of nasogastric tube and endotracheal tube.
[2022-08-13] MEDS: budesonide 0.5 mg/2 mL Neb INHALATION ×2 (08:07→20:05)
[2022-08-13] MEDS: folic acid 1 mg Tablet PO (08:26)
[2022-08-13] MEDS: multivitamin therapeutic Tablet 1 TAB PO (08:26)
[2022-08-13] MEDS: sennosides-docusate Tablet 1 TAB PO (08:26)
[2022-08-13] MEDS: phosphorus 250 mg Tablet PO (08:26)
--- NOTE | 2022-08-13 08:28 | P.PN_ITS ---
Subjective Subjective: Patient seen at bedside today morning -More awake and alert and following commands Off sedation and off feeding -We will put him on spontaneous breathing trial and possibly extubate -Phosphorus 1.6-on oral supplementation -Received Lasix 40 yesterday night-patient has been net -1.2 L Other labs and imaging reviewed Vitals/I&O/Wt Last Vital Signs Temp 98.2 F 08/13/22 05:00 Pulse 67 08/13/22 08:00 Resp 21 H 08/13/22 08:09 BP 152/77 08/13/22 05:30 Pulse Ox 98 08/13/22 08:00 O2 Del Method 08/13/22 08:00 FiO2 24 08/13/22 08:09 08/12/22 08/13/22 08/13/22 22:59 06:59 14:59 Intake Total 881.650 / 926.907 90 / 1016.907 Output Total 450 / 450 1800 / 2250 Balance 431.650 / 476.907 -1710 / -1233.093 Weight last 48 hrs Weight 168 lb 4.8 oz Physical Exam Narrative: PHYSICAL EXAM: General: lying in bed, intubated, following commands, more awake HEENT:NCAT, PERRLA, EOMI Neck: Supple Lungs: Clear, Heart: s1/s2, RRR Abd: soft, NT, ND, BS + Normoactive Extremities: No edema 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 SKIN: no rash Urinary Catheter Management: Guzman: Cath Placed During This Visit: yes Reason for Continuing Indwelling Catheter: Accurate Measurement of Urinary Output in Critically Ill Patients Urinary Catheter Date of Insertion: 08/07/22 Urinary Catheter Time of Insertion: 17:30 Data 08/13/22 02:29 08/13/22 02:29 Other Labs: Radiology Impressions Head CT 08/07/22 14:04 IMPRESSION: 1. No evidence of intracranial hemorrhage or mass effect. 2. Mild small vessel changes. Mild parenchymal volume loss. 3. Vascular calcification. 4. No acute intracranial findings. Abdomen/Pelvis CT 08/07/22 15:13 IMPRESSION: 1. 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 Splenomegaly. 3. Portal venous hypertension with extensive portal venous collaterals and small upper abdominal varices. 4. Normal renal parenchymal enhancement. No hydronephrosis. 5. Normal caliber abdominal aorta. 6. Sigmoid diverticulosis. 7. Enlarged prostate measuring 4.1 CM. 8. No other acute findings. Notified Lico Parry DO at 08/07/2022 4:22 PM. Gallbladder Ultrasound 08/07/22 15:13 IMPRESSION: 1. Markedly abnormal liver. Most consistent with a cirrhotic fibrotic appearing liver. 2. Large tubular structures in the central liver contains a lobulated mass. This is a large recanalized umbilical vein with thrombus as well as also seen on the recent CT. 3. Mild sludge-filled gallbladder. Chest X-Ray 08/13/22 08:00 Impression: 1. Slight improvement in opacity at right lung base and no change in opacity at left lung base. 2. No change in position of nasogastric tube and endotracheal tube. Laboratory Results WBC 3.9 10^3/uL (4.0-10.0) L 08/13/22 02:29 RBC 4.09 10^6/uL (4.1-5.3) L 08/13/22 02:29 Hgb 12.7 g/dL (11.7-16.6) 08/13/22 02:29 Hct 38.2 % (42.0-52.0) L 08/13/22 02:29 MCV 93.4 fl (80-94) 08/13/22 02:29 MCH 31.1 pg (28.0-34.0) 08/13/22 02:29 MCHC 33.2 g/dL (30.0-36.0) 08/13/22 02:29 RDW 19.3 % (12.1-15.1) H 08/13/22 02:29 Plt Count 56 10^3/cmm (130-400) L D 08/13/22 02:29 MPV 11.0 fL (7.4-10.4) H 08/13/22 02:29 Neut % (Auto) 71.6 % 08/13/22 02:29 Lymph % (Auto) 8.3 % 08/13/22 02:29 [place] % (Auto) 16.3 % 08/13/22 02:29 Eos % (Auto) 2.3 % 08/13/22 02:29 Baso % (Auto) 1.0 % 08/13/22 02:29 Neut # (Auto) 2.76 10^3/uL (1.8-7.7) 08/13/22 02:29 Lymph # (Auto) 0.3 10^3/uL (0.8-4.8) L 08/13/22 02:29 [place] # (Auto) 0.6 10^3/uL (0.2-0.9) 08/13/22 02:29 Eos # (Auto) 0.1 10^3/uL (0.0-0.8) 08/13/22 02:29 Baso # (Auto) 0.0 10^3/uL (0.0-0.1) 08/13/22 02: Nucleated RBC % (auto) 0 % 08/13/22 02: Nucleated RBCs # 0.0 /100WBC 08/13/22 02:29 PT 19.80 SECONDS (12.1-14.9) H 08/08/22 01:20 INR 1.62 (0.8-1.2) H 08/08/22 01:20 APTT 33.2 SECONDS (23.9-36.7) 08/07/22 16:34 Specimen Type Arterial 08/13/22 05:56 Sample Site Radial, right 08/13/22 05:56 ABG pH 7.46 (7.35-7.45) H 08/13/22 05:56 ABG pCO2 38.4 mmHg (35-45) 08/13/22 05:56 ABG pO2 67.8 mmHg (80.0-100.0) L 08/13/22 05:56 ABG HCO3 27.3 mmol/L (22-26) H 08/13/22 05:56 ABG O2 Saturation 93.9 08/13/22 05:56 ABG Base Excess 3.4 mmol/L (-2.0-2.0) H 08/13/22 05:56 Silvano Test Pos 08/13/22 05:56 A-a O2 Gradient 7.0 mmHg (5-10) 08/13/22 05:56 Hematocrit 41.1 % (42-52) L 08/13/22 05:56 Hgb O2 Saturation 91.9 % (95-100) L 08/13/22 05:56 Carboxyhemoglobin 1.8 %THgb (0.4-20.1) 08/13/22 05:56 Methemoglobin 0.4 % (0.4-1.5) 08/13/22 05:56 Total Hemoglobin 13.4 g/dL (14-18) L 08/13/22 05:56 Sodium 143.0 mmol/L (131-143) 08/13/22 05:56 Potassium 3.7 mmol/L (3.5-5.0) 08/13/22 05:56 Glucose 248.0 mg/dL (70-115) H 08/13/22 05:56 Ionized Calcium 1.2 mmol/L (1.1-1.4) 08/13/22 05:56 O2 Delivery Device Vent 08/13/22 05:56 O2 Liters/Min 3.0 % 08/07/22 14:18 FiO2 24.0 % 08/13/22 05:56 Tidal Volume 0.45 08/13/22 05:56 PEEP 6.0 cmH20 08/13/22 05:56 Musical Instrument Supervisor ID Juan Antonio 08/13/22 05:56 Sodium 141 mmol/L (136-145) 08/13/22 02:29 Potassium 3.7 mmol/L (3.5-5.1) 08/13/22 02:29 Chloride 105 mmol/L (98-107) 08/13/22 02:29 Carbon Dioxide 25 mmol/L (22-29) 08/13/22 02:29 Anion Gap 14.7 (5-19) 08/13/22 02:29 BUN 21 mg/dL (8-23) 08/13/22 02:29 Creatinine 0.7 mg/dL (0.7-1.2) 08/13/22 02:29 GFR Calculation 111.8 mL/min (90-130) 08/13/22 02:29 Glucose 265 mg/dL (65-115) H 08/13/22 02:29 POC Glucose 254 mg/dL (70-110) H 08/13/22 06:41 Estimat Average Glucose 108 08/08/22 01:20 Hemoglobin A1c 5.4 % (4.0-6.0) 08/08/22 01:20 Calculated Osmolality 304 mOsm/kg (285-295) H 08/13/22 02:29 Lactic Acid 3.7 mmol/L (0.5-2.2) H 08/07/22 14:56 Lactic Acid (Sepsis) 2.8 mmol/L (0.5-2.2) H 08/07/22 19:00 Calcium 8.4 mg/dL (8.5-10.5) L 08/13/22 02:29 Phosphorus 1.6 mg/dL (2.5-4.5) L 08/13/22 02:29 Magnesium 1.9 mg/dL (1.7-2.3) 08/13/22 02:29 Iron 241 ug/dL (59-158) H 08/07/22 12:45 TIBC 247 mcg/dl 08/07/22 12:45 % Saturation 97.5 % (20-50) H 08/07/22 12:45 Unsat Iron Binding 6 ug/dL (112-347) L 08/07/22 12:45 Total Bilirubin 3.7 mg/dL (0.15-1.2) H 08/11/22 02:15 AST 85 U/L (0-40) H 08/11/22 02:15 ALT 52 U/L (0-41) H 08/11/22 02:15 Alkaline Phosphatase 185 U/L (40-130) H 08/11/22 02:15 Ammonia 53 umol/L (16-60) 08/09/22 03:30 Creatine Kinase 242 U/L (39-308) 08/09/22 17:20 Total Protein 5.4 g/dL (6.6-8.7) L 08/11/22 02:15 Albumin 3.6 g/dL (3.5-5.2) 08/11/22 02:15 Globulin 1.8 g/dL (1.3-4.6) 08/11/22 02:15 Triglycerides 118 mg/dL (0-150) 08/08/22 09:06 Cholesterol 177 mg/dL (0-200) 08/08/22 09:06 LDL Cholesterol, Calc 131 mg/dL (50-129) H 08/08/22 09:06 Total VLDL Cholesterol 24 mg/dL (0-30) 08/08/22 09:06 HDL Cholesterol 22 mg/dL (60-100) L 08/08/22 09:06 Cholesterol/HDL Ratio 8.05 mg/dL (1.0-5.00) H 08/08/22 09:06 Lipase 119 U/L (13-60) H 08/07/22 12:45 Vitamin B12 1835 pg/mL (232-1245) H 08/07/22 18:10 Folate > 20.0 ng/mL (4.5-32.2) 08/07/22 18:10 Procalcitonin 1.16 ng/mL (0-0.5) H 08/07/22 12:45 TSH 1.22 uIU/mL (0.27-4.20) 08/07/22 18:10 PTH Intact 29.2 pg/mL (15-65) 08/07/22 22:40 Calcium (PTH Intact) 9.8 mg/dL (8.5-10.5) 08/07/22 22:40 Urine Color Dark yellow (Yellow) 08/07/22 14:48 Urine Appearance Hazy (CLEAR) A 08/07/22 14:48 Urine pH 5 (5-7) 08/07/22 14:48 Ur Specific [place] 1.030 (1.005-1.030) 08/07/22 14:48 Urine Protein 3+ (Negative) H 08/07/22 14:48 Urine Glucose (UA) Norm (Normal) 08/07/22 14:48 Urine Ketones 1+ (Negative) H 08/07/22 14:48 Urine Blood 3+ (Negative) H 08/07/22 14:48 Urine Nitrate Negative (Negative) 08/07/22 14:48 Urine Bilirubin 2+ (Negative) H 08/07/22 14:48 Urine Urobilinogen 8 mg/dL (Negative) H 08/07/22 14:48 Ur Leukocyte Esterase Trace (Negative) H 08/07/22 14:48 Urine RBC 80-100 /hpf (0-2) H 08/07/22 14:48 Urine WBC 0-4 /hpf (0-5) H 08/07/22 14:48 Ur Squamous Epith Cells 0-4 /hpf (0-5) H 08/07/22 14:48 Amorphous Sediment 4+ /hpf 08/07/22 14:48 Urine Bacteria Trace /hpf (NONE) 08/07/22 14:48 Urine Opiates Screen Negative ng/mL (Negative) 08/07/22 14:48 Ur Barbiturates Screen Negative ng/mL (Negative) 08/07/22 14:48 Ur Phencyclidine Scrn Negative ng/mL (Negative) 08/07/22 14:48 Ur Amphetamines Screen Negative ng/mL (Negative) 08/07/22 14:48 Phenobarbital 17.6 ug/mL (10-30) 08/13/22 02:29 U Benzodiazepines Scrn Negative ng/mL (Negative) 08/07/22 14:48 Urine Cocaine Screen Negative ng/mL (Negative) 08/07/22 14:48 U Marijuana (THC) Screen Positive ng/mL (Negative) H 08/07/22 14:48 Ethyl Alcohol < 10 mg/dL (0-10) 08/07/22 12:45 Serum Ketones Negative (Negative) 08/12/22 10:20 Hepatitis A IgM Ab Non-reactive (Nonreactive) 08/07/22 22:40 Hep Bs Antigen Non-reactive (Nonreactive) 08/07/22 22:40 Hep Bs Antibody 5.3 (11.5-1000) L 08/07/22 22:40 Hep B Core Total Ab Non-reactive (Nonreactive) 08/07/22 22:40 Hepatitis C Antibody Reactive (Nonreactive) H 08/07/22 22:40 HCV RNA (PCR) IUs/ml <1.18 not detected Log IU/mL (NOT DETECTED) 08/09/22 00:59 HCV RNA (PCR) IU log10 <15 not detected IU/mL (NOT DETECTED) 08/09/22 00:59 Micro: Microbiology 08/07/22 18:17 Blood Culture - Final Blood NO GROWTH AFTER 5 DAYS 08/07/22 18:10 Blood Culture - Final Blood NO GROWTH AFTER 5 DAYS A&P Assessment and plan (1) Hypercapnic respiratory failure: (2) Hypophosphatemia: (3) Diabetes: (4) Alcohol withdrawal seizure: (5) Alcohol abuse: (6) Difficult ventilator weaning: (7) Thrombocytopenia: Plan #Altered mental status/seizures secondary to alcohol withdrawal-resulting hypercapnic respiratory failure-requiring intubation and mechanical ventilation #Hypophosphatemia-secondary to alcohol #Underlying liver cirrhosis #Diabetes with moderately controlled sugars #Thrombocytopenia-secondary to alcohol disorder/cirrhosis/less likely HIT as it dropped 30- 50% in < 5 days; no evidence of thrombus, possible other causes (4T score 2 low probalility) -Currently intubated requiring minimal vent settings with FiO2 24% -Completed tapering dose of phenobarbital- -off sedation today following commands-we will plan for spontaneous breathing trial and possible extubation today -Serum phosphorus improved to-1.6-on oral supplementation-we will recheck phosphorus in afternoon and if more than 2 we can stop supplementation -Other electrolytes are within normal limits - on scale coverage for uncontrolled sugars -Bedside swallow eval after extubation and start on clear liquids and advance as tolerated --1.2 L over last 24 hours-received Lasix 40 Mg yesterday ICU CHECKLIST: Problem list updated Verbal orders reviewed and signed Code Status: Limited Disposition: Patient will stay in ICU Critically ill: Yes MD discussed with: Hospitalist, RN, RT taking care of the patient Analgesia: Fentanyl-turned off in anticipation of extubation Glycemic Control: Insulin Nutrition: Glucerna tube feeding Restraint Renewal (within 24 hrs): Yes Ulcer Prophylaxis: PPI Chemical Thromboprophylaxis: Prophylaxis: Heparin held in view of thrombocytopenia Mechanical Thromboprophylaxis: SCDs Need for Central line: N/A Need for Guzman catheter: Yes urine output monitoring Critical Care Time (No Overlap): 48 min Attestations Medical Necessity Statement*: Possible extubation today. Will monitor for 24 hours postextubation in ICU Time Spent in Patient Care: Greater than 35 minutes (>than 50% of time spent in counselling and/or direct pt care on unit) . Critical Care Time: This patient has a high probability of clinically significant, sudden or life threatening deterioration of the patient's (neurological, pulmonary, hepatic) systems required my full, direct attention, the highest level of physician preparedness for urgent intervention and personal management. I managed/supervised life or organ supporting interventions that required frequent physician assessment. I devoted my full attention in the ICU to the direct care of this patient for the period of time indicated above. Time I spent with family or surrogate(s) is included only if the patient was incapable of providing necessary information or participating in decision ma cherelle. This time includes the following services provided: Telemetry review Mechanical Ventilation Hemodynamic interpretation, assessment and management Review and interpretation of CXR Review and interpretation of lab values Review and interpretation of microbiologic data and culture results Review of medications and administration Review and interpretation of Nutrition requirements and management Discussion of management with other consultants and services Clinical update to family members [x] Data and vital sign review and interpretation [x] Patient assessment, examination and intervention [x] Documentation [x] Medication orders and management Time spent for teaching as well as performing procedures are billed separately and is not included in this note Critical Care Time (min): 48 Coding Level of Care Code 82651 Diagnoses Hypercapnic respiratory failure J96.92 Hypophosphatemia E83.39 Diabetes E11.9 Alcohol withdrawal seizure F10.939; R56.9 Alcohol abuse F10.10 Difficult ventilator weaning Z99.11 Thrombocytopenia D69.6 Time Spent (min) 48
[2022-08-13 11:25] LABS: Glucose Point of Care 187 mg/dL (70-110)
[2022-08-13] MEDS: FUROsemide 10 mg/mL SDV 4mL 40 MG IVP (11:26)
[2022-08-13] MEDS: lisinopril 20 mg Tablet PO (11:26)
--- NOTE | 2022-08-13 12:35 | PM.PN ---
Subjective Subjective: Patient when seen this morning was extubated. Still on wrist restraints. He was trying to pull out his Guzman catheter. Blood pressure slightly elevated this morning. His home lisinopril was on hold. He did get Lasix 40 IV one-time dose last night. 1.6 L negative this morning. Family at bedside. Daughter and son-in-law. Patient coughing up quite a bit of sputum. Notes that he feels better. Phosphorus 1.6 today. Potassium 3.7. Vitals/I&O/Wt Last Vital Signs Temp 97.3 F L 08/13/22 07:30 Pulse 70 08/13/22 08:30 Resp 21 H 08/13/22 08:09 BP 162/79 08/13/22 08:30 Pulse Ox 96 08/13/22 08:30 O2 Del Method 08/13/22 08:00 FiO2 24 08/13/22 08:09 08/12/22 08/13/22 08/13/22 22:59 06:59 14:59 Intake Total 881.650 / 926.907 90 / 1016.907 2.267 / 2.267 Output Total 450 / 450 1800 / 2250 Balance 431.650 / 476.907 -1710 / -1233.093 2.267 / 2.267 Weight last 48 hrs Weight 76.34 kg Physical Exam Narrative: General: Awake alert. Responding to daughter and son-in-law. Earlier try to pull out his Guzman catheter. Still on wrist restraints. HEENT: EOMI, PERRLA Chest: Normal vesicular breath sounds, no added sounds, equal good air entry bilaterally, coughing up sputum. CVS: S1-S2 regular, no murmurs, no tachycardia, no gallops, no rubs Abdomen: Soft, nontender, no organomegaly, bowel sounds present Neuro: Able to move all 4 extremities. No gross focal neurological deficits. Urinary Catheter Management: Guzman: Cath Placed During This Visit: yes Reason for Continuing Indwelling Catheter: Accurate Measurement of Urinary Output in Critically Ill Patients Urinary Catheter Date of Insertion: 08/07/22 Urinary Catheter Time of Insertion: 17:30 Data 08/13/22 02:29 08/13/22 02:29 Micro: Microbiology 08/07/22 18:17 Blood Culture - Final Blood NO GROWTH AFTER 5 DAYS 02/10/23 18:10 Blood Culture - Final Blood NO GROWTH AFTER 5 DAYS A&P Assessment and plan (1) Alcohol withdrawal seizure: (2) Hypercapnic respiratory failure: (3) High anion gap metabolic acidosis: (4) Hepatorenal syndrome: (5) Acute kidney injury: (6) Transaminitis: (7) Lactic acid acidosis: (8) Diabetes: (9) Esophageal varices in alcoholic cirrhosis: (10) Alcohol abuse: (11) Essential hypertension: (12) UTI (urinary tract infection): (13) Hypothermia: Plan 67-year-old with history of chronic alcoholic abuse found to have alcohol withdrawal seizures at home by EMS received Ativan and when present in the ER was found to be hypercapnic, mixed metabolic and respiratory acidosis with high anion gap acidosis, acute kidney injury liver disorder obtunded on BiPAP hence decision was made to intubate to protect airway. Plan: Alcohol abuse/alcohol withdrawal seizure: Patient extubated this morning. IV thiamine 100 mg to be continued. Oral folic acid 1 g daily. Phenobarbital level 17 this AM. Phosphorus 1.6. We will recheck this afternoon and stop if level above 2. E[place]ium 1.9. MRSA nares negative BCx NTD. Continue empiric zosyn. May use Precedex drip for agitation. TRISTEN - Resolved Suscpicion of hepatorenal syndrome with hyperkalemia and HAGMA - resolved Pt did receive octreotide and albumin briefly Kidney function has normalized. Continue Midodrine Medical reconciliation done for nephrotoxic drugs. Hold off on lisinopril. Continue to monitor. Alcoholic liver cirrhosis: Transaminitis, hyperbilirubinemia. INR mildly elevated. Child- Adair score 9. Patient is not a good candidate for liver transplant given current alcohol abuse. IV Protonix 40 mg twice daily. Hold off on rosuvastatin for now. Hepatitis C positive Thrombocytopenia: Most likely in setting of chronic alcohol liver disease. Slight worsening today. No active site of bleeding. Continue to monitor. Platelets have improved to 59,000. History of esophageal varices: CT abdomen pelvis shows portal vein hypertension with extensive portal venous collaterals. Nonhemorrhagic for now. Continue to monitor hemoglobin. Continue Protonix 40 mg twice daily. If in case OG tube comes out will not plan to put any more OG tube until needed and that to under fluoroscopy. - Hold off on pharmacological DVT PPX. Hypertension: Goal blood pressure less than 140/90 mmHg. Keep mean artery pressure around 70 as above. Blood pressure has been on the elevated side. Midodrine was already stopped. We will restart lisinopril on low-dose of 20 mg daily. At home he takes 40 daily. Type 2 diabetes mellitus: A1c 5.4. Hold off on any further insulin. On review of medication it seems patient is on a medication called as Levnatinib which is anticancer medication for possible thyroid cancer. Life partner cannot give me any medical history. No medical history present in chart. TSH normal limits. Check PTH. Corrected calcium at 9.8. Patient's daughter and son in law present at bedside. Plan for PT OT. Speech swallow evaluation at this point. We will order for another Lasix 40 IV x1. If passes speech swallow eval. We will plan on initiating oral diet. We will talk with patient once he is a little bit more cooperative. As per daughter he is very aggressive and will pull out any kind of tube that he sees on him. She says that he will not be very nice once he is more alert and awake. CODE STATUS: Previous hospitalst Discussed in detail with patient's sister on the phone. Patient's sister after talking to multiple family members called back saying they would not want any chest compressions. Limited resuscitation. Thrombocytopenia. Hold off on heparin for now. Protonix. Will suffice as PVD prophylaxis. Attestations Medical Necessity Statement*: Continue ICU level care. Monitor in ICU for 24 hours postextubation today. Critical Care Time: Critical Care Time (min): 30 Diagnoses Alcohol withdrawal seizure F10.939; R56.9 Hypercapnic respiratory failure J96.92 High anion gap metabolic acidosis E87.29 Hepatorenal syndrome K76.7 Acute kidney injury N17.9 Transaminitis R74.01 Lactic acid acidosis E87.20 Diabetes E11.9 Esophageal varices in alcoholic cirrhosis K70.30; I85.10 Alcohol abuse F10.10 Essential hypertension I10 UTI (urinary tract infection) N39.0 Hypothermia T68.XXXA
[2022-08-13 13:30] LABS: Creatine Phosphokinase 34 U/L (39-308)
[2022-08-13 17:40] LABS: Glucose Point of Care 154 mg/dL (70-110)
[2022-08-13 22:46] LABS: Phosphorus 2.1 mg/dL (2.5-4.5)
[2022-08-14] VITALS (48 sets, daily range): BP systolic 136–184; BP diastolic 68–115; PULSE 58–112; RESP 16–32; TEMP 36.7–37.1; O2SAT 79–99; BMI 23.7
[2022-08-14] MEDS: piperacillin-tazobactam 3.375 GM in sodium chloride 0.9% (plus) 50 ML IV ×2 (02:36→09:14)
[2022-08-14 03:24] LABS: Basophils % 0.5 %; Eosinophils # 0.1 10^3/uL (0.0-0.8); Eosinophils % 3.2 %; Hematocrit 36.8 % (42.0-52.0); Hemoglobin 12.4 g/dL (11.7-16.6); Lymphocytes # 0.4 10^3/uL (0.8-4.8); Lymphocytes % 10.2 %; Mean Corpuscular HGB Conc 33.7 g/dL (30.0-36.0); Mean Corpuscular Hemoglobin 30.7 pg (28.0-34.0); Mean Corpuscular Volume 91.1 fl (80-94); Monocytes # 0.6 10^3/uL (0.2-0.9); Monocytes % 15.8 %; Neutrophils % 69.8 %; Nucleated Red Blood Cells % 0 %; Platelet Count 51 10^3/cmm (130-400); Red Blood Count 4.04 10^6/uL (4.1-5.3); Red Cell Distribution Width 19.1 % (12.1-15.1); White Blood Count 3.7 10^3/uL (4.0-10.0)
[2022-08-14 03:37] LABS: Anion Gap 12.4 (5-19); Blood Urea Nitrogen 24 mg/dL (8-23); Calcium 8.7 mg/dL (8.5-10.5); Carbon Dioxide 27 mmol/L (22-29); Chloride 107 mmol/L (98-107); Glomerular Filtration Rate 111.8 mL/min (90-130); Glucose 158 mg/dL (65-115); Magnesium 1.8 mg/dL (1.7-2.3); Osmolality Calculated 303 mOsm/kg (285-295); Phosphorus 2.3 mg/dL (2.5-4.5); Potassium 3.4 mmol/L (3.5-5.1); Sodium 143 mmol/L (136-145)
[2022-08-14] MEDS: pantoprazole 40 mg SDV IVP ×2 (05:46→17:31)
[2022-08-14] MEDS: insulin lispro 100 unit/1 mL SUBCUT ×3 (06:05→17:32)
[2022-08-14] MEDS: hyDRALAzine 20 mg/mL INJ 1 mL 5 MG IVP ×2 (06:07→19:52)
--- NOTE | 2022-08-14 08:00 | XR_ITS ---
WS: [id number] Portable AP upright chest, 08/14/2022 Clinical Data: follow up Comparison: Portable chest, 08/13/2022 Findings: No nodules, masses or effusions are seen. The heart is normal. The pulmonary vascularity is not increased. No pneumothorax is seen. The patchy opacity in the right lower lobe along with the pa tchy opacity left lower lobe shows no change. The endotracheal tube and nasogastric tube have been re moved. There are monitor leads on the chest wall. XR/XR chest 1V portable [id number] Impression: 1. No change in minimal bibasilar opacities. 2. Removal of endotracheal tube and nasogastric tube.
[2022-08-14] MEDS: budesonide 0.5 mg/2 mL Neb INHALATION ×2 (08:31→19:59)
[2022-08-14] MEDS: multivitamin therapeutic Tablet 1 TAB PO (09:13)
[2022-08-14] MEDS: sennosides-docusate Tablet 1 TAB PO (09:13)
[2022-08-14] MEDS: folic acid 1 mg Tablet PO (09:13)
[2022-08-14] MEDS: phosphorus 250 mg Tablet PO (09:13)
[2022-08-14] MEDS: lisinopril 20 mg Tablet 40 MG PO (09:13)
[2022-08-14 09:46] LABS: Glucose Point of Care 211 mg/dL (70-110)
[2022-08-14 11:18] LABS: Glucose Point of Care 198 mg/dL (70-110)
[2022-08-14] MEDS: FUROsemide 10 mg/mL SDV 2mL 20 MG IVP (11:46)
[2022-08-14] MEDS: potassium chloride oral liq 20 mEq/15 mL UDC 40 MEQ PO (11:47)
--- NOTE | 2022-08-14 16:47 | PC.SOCIAL ---
IMM UPDATED IMM dated and initialed and copy placed in chart and given to patient
[2022-08-14 17:27] LABS: Glucose Point of Care 186 mg/dL (70-110)
[2022-08-14] MEDS: amlodipine 5 mg Tablet PO (21:37)
--- NOTE | 2022-08-14 22:59 | PM.PN ---
Subjective Subjective: Patient seen at bedside today morning Extubated successfully yesterday Currently requiring 3 L nasal cannula -He was alert and talking to family members -Swallow evaluation shown improved swallow -Added thiamine 100 Mg p.o. -Potassium 3.4-supplemented and other electrolytes normal Medications: Reviewed: Yes Vitals/I&O/Wt Last Vital Signs Temp 98.0 F 08/14/22 16:30 Pulse 84 08/14/22 19:59 Resp 16 08/14/22 19:59 BP 169/82 08/14/22 16:30 Pulse Ox 99 08/14/22 19:59 O2 Del Method 08/14/22 19:59 O2 Flow Rate 3 08/14/22 19:59 FiO2 24 08/14/22 06:00 08/14/22 08/14/22 08/14/22 06:59 14:59 22:59 Intake Total 80 / 132.267 530 / 530 290 / 820 Output Total 450 / 2350 800 / 800 Balance -370 / -2217.733 -270 / -270 290 / 20 Weight last 48 hrs Weight 167 lb 14.4 oz Physical Exam Narrative: PHYSICAL EXAM: General: Appears more alert than yesterday-follows commands HEENT:NCAT, PERRLA, EOMI Neck: Supple Lungs: Clear, Heart: s1/s2, RRR Abd: soft, NT, ND, BS + Normoactive Extremities: No edema 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 SKIN: no rash Urinary Catheter Management: Guzman: Cath Placed During This Visit: yes Reason for Continuing Indwelling Catheter: Accurate Measurement of Urinary Output in Critically Ill Patients Urinary Catheter Date of Insertion: 08/07/22 Urinary Catheter Time of Insertion: 17:30 Data 08/14/22 02:21 08/14/22 02:21 Other Labs: Radiology Impressions Head CT 08/07/22 14:04 IMPRESSION: 1. No evidence of intracranial hemorrhage or mass effect. 2. Mild small vessel changes. Mild parenchymal volume loss. 3. Vascular calcification. 4. No acute intracranial findings. Abdomen/Pelvis CT 08/07/22 15:13 IMPRESSION: 1. 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 Splenomegaly. 3. Portal venous hypertension with extensive portal venous collaterals and small upper abdominal varices. 4. Normal renal parenchymal enhancement. No hydronephrosis. 5. Normal caliber abdominal aorta. 6. Sigmoid diverticulosis. 7. Enlarged prostate measuring 4.1 CM. 8. No other acute findings. Notified Lico Parry DO at 08/07/2022 4:22 PM. Gallbladder Ultrasound 08/07/22 15:13 IMPRESSION: 1. Markedly abnormal liver. Most consistent with a cirrhotic fibrotic appearing liver. 2. Large tubular structures in the central liver contains a lobulated mass. This is a large recanalized umbilical vein with thrombus as well as also seen on the recent CT. 3. Mild sludge-filled gallbladder. Chest X-Ray 08/14/22 08:00 Impression: 1. No change in minimal bibasilar opacities. 2. Removal of endotracheal tube and nasogastric tube. Laboratory Results WBC 3.7 10^3/uL (4.0-10.0) L 08/14/22 02:21 RBC 4.04 10^6/uL (4.1-5.3) L 08/14/22 02:21 Hgb 12.4 g/dL (11.7-16.6) 08/14/22 02:21 Hct 36.8 % (42.0-52.0) L 08/14/22 02:21 MCV 91.1 fl (80-94) 08/14/22 02:21 MCH 30.7 pg (28.0-34.0) 08/14/22 02:21 MCHC 33.7 g/dL (30.0-36.0) 08/14/22 02:21 RDW 19.1 % (12.1-15.1) H 08/14/22 02:21 Plt Count 51 10^3/cmm (130-400) L 08/14/22 02:21 MPV 12.0 fL (7.4-10.4) H 08/14/22 02:21 Neut % (Auto) 69.8 % 08/14/22 02:21 Lymph % (Auto) 10.2 % 08/14/22 02:21 Grainger % (Auto) 15.8 % 08/14/22 02:21 Eos % (Auto) 3.2 % 08/14/22 02:21 Baso % (Auto) 0.5 % 08/14/22 02:21 Neut # (Auto) 2.60 10^3/uL (1.8-7.7) 08/14/22 02:21 Lymph # (Auto) 0.4 10^3/uL (0.8-4.8) L 08/14/22 02:21 Grainger # (Auto) 0.6 10^3/uL (0.2-0.9) 08/14/22 02:21 Eos # (Auto) 0.1 10^3/uL (0.0-0.8) 08/14/22 02:21 Baso # (Auto) 0.0 10^3/uL (0.0-0.1) 08/14/22 02:21 Nucleated RBC % (auto) 0 % 08/14/22 02:21 Nucleated RBCs # 0.0 /100WBC 08/14/22 02:21 PT 19.80 SECONDS (12.1-14.9) H 08/08/22 01:20 INR 1.62 (0.8-1.2) H 08/08/22 01:20 APTT 33.2 SECONDS (23.9-36.7) 08/07/22 16:34 Specimen Type Arterial 08/13/22 05:56 Sample Site Radial, right 08/13/22 05:56 ABG pH 7.46 (7.35-7.45) H 08/13/22 05:56 ABG pCO2 38.4 mmHg (35-45) 08/13/22 05:56 ABG pO2 67.8 mmHg (80.0-100.0) L 08/13/22 05:56 ABG HCO3 27.3 mmol/L (22-26) H 08/13/22 05:56 ABG O2 Saturation 93.9 08/13/22 05:56 ABG Base Excess 3.4 mmol/L (-2.0-2.0) H 08/13/22 05:56 Silvano Test Pos 08/13/22 05:56 A-a O2 Gradient 7.0 mmHg (5-10) 08/13/22 05:56 Hematocrit 41.1 % (42-52) L 08/13/22 05:56 Hgb O2 Saturation 91.9 % (95-100) L 08/13/22 05:56 Carboxyhemoglobin 1.8 %THgb (0.4-20.1) 08/13/22 05:56 Methemoglobin 0.4 % (0.4-1.5) 08/13/22 05:56 Total Hemoglobin 13.4 g/dL (14-18) L 08/13/22 05:56 Sodium 143.0 mmol/L (131-143) 08/13/22 05:56 Potassium 3.7 mmol/L (3.5-5.0) 08/13/22 05:56 Glucose 248.0 mg/dL (70-115) H 08/13/22 05:56 Ionized Calcium 1.2 mmol/L (1.1-1.4) 08/13/22 05:56 O2 Delivery Device Vent 08/13/22 05:56 O2 Liters/Min 3.0 % 08/07/22 14:18 FiO2 24.0 % 08/13/22 05:56 Tidal Volume 0.45 08/13/22 05:56 PEEP 6.0 cmH20 08/13/22 05:56 Demonstrator Knitting ID Juan Antonio 08/13/22 05:56 Sodium 143 mmol/L (136-145) 08/14/22 02:21 Potassium 3.4 mmol/L (3.5-5.1) L 08/14/22 02:21 Chloride 107 mmol/L (98-107) 08/14/22 02:21 Carbon Dioxide 27 mmol/L (22-29) 08/14/22 02:21 Anion Gap 12.4 (5-19) 08/14/22 02:21 BUN 24 mg/dL (8-23) H 08/14/22 02:21 Creatinine 0.7 mg/dL (0.7-1.2) 08/14/22 02:21 GFR Calculation 111.8 mL/min (90-130) 08/14/22 02:21 Glucose 158 mg/dL (65-115) H 08/14/22 02:21 POC Glucose 186 mg/dL (70-110) H 08/14/22 17:09 Estimat Average Glucose 108 08/08/22 01:20 Hemoglobin A1c 5.4 % (4.0-6.0) 08/08/22 01:20 Calculated Osmolality 303 mOsm/kg (285-295) H 08/14/22 02:21 Lactic Acid 3.7 mmol/L (0.5-2.2) H 08/07/22 14:56 Lactic Acid (Sepsis) 2.8 mmol/L (0.5-2.2) H 08/07/22 19:00 Calcium 8.7 mg/dL (8.5-10.5) 08/14/22 02:21 Phosphorus 2.3 mg/dL (2.5-4.5) L 08/14/22 02:21 Magnesium 1.8 mg/dL (1.7-2.3) 08/14/22 02:21 Iron 241 ug/dL (59-158) H 08/07/22 12:45 TIBC 247 mcg/dl 08/07/22 12:45 % Saturation 97.5 % (20-50) H 08/07/22 12:45 Unsat Iron Binding 6 ug/dL (112-347) L 08/07/22 12:45 Total Bilirubin 3.7 mg/dL (0.15-1.2) H 08/11/22 02:15 AST 85 U/L (0-40) H 08/11/22 02:15 ALT 52 U/L (0-41) H 08/11/22 02:15 Alkaline Phosphatase 185 U/L (40-130) H 08/11/22 02:15 Ammonia 53 umol/L (16-60) 08/09/22 03:30 Creatine Kinase 34 U/L (39-308) L 08/13/22 02:29 Total Protein 5.4 g/dL (6.6-8.7) L 08/11/22 02:15 Albumin 3.6 g/dL (3.5-5.2) 08/11/22 02:15 Globulin 1.8 g/dL (1.3-4.6) 08/11/22 02:15 Triglycerides 118 mg/dL (0-150) 08/08/22 09:06 Cholesterol 177 mg/dL (0-200) 08/08/22 09:06 LDL Cholesterol, Calc 131 mg/dL (50-129) H 08/08/22 09:06 Total VLDL Cholesterol 24 mg/dL (0-30) 08/08/22 09:06 HDL Cholesterol 22 mg/dL (60-100) L 08/08/22 09:06 Cholesterol/HDL Ratio 8.05 mg/dL (1.0-5.00) H 08/08/22 09:06 Lipase 119 U/L (13-60) H 08/07/22 12:45 Vitamin B12 1835 pg/mL (232-1245) H 08/07/22 18:10 Folate > 20.0 ng/mL (4.5-32.2) 08/07/22 18:10 Procalcitonin 1.16 ng/mL (0-0.5) H 08/07/22 12:45 TSH 1.22 uIU/mL (0.27-4.20) 08/07/22 18:10 PTH Intact 29.2 pg/mL (15-65) 08/07/22 22:40 Calcium (PTH Intact) 9.8 mg/dL (8.5-10.5) 08/07/22 22:40 Urine Color Dark yellow (Yellow) 08/07/22 14:48 Urine Appearance Hazy (CLEAR) A 08/07/22 14:48 Urine pH 5 (5-7) 08/07/22 14:48 Ur Specific [place] 1.030 (1.005-1.030) 08/07/22 14:48 Urine Protein 3+ (Negative) H 08/07/22 14:48 Urine Glucose (UA) Norm (Normal) 08/07/22 14:48 Urine Ketones 1+ (Negative) H 08/07/22 14:48 Urine Blood 3+ (Negative) H 08/07/22 14:48 Urine Nitrate Negative (Negative) 08/07/22 14:48 Urine Bilirubin 2+ (Negative) H 08/07/22 14:48 Urine Urobilinogen 8 mg/dL (Negative) H 08/07/22 14:48 Ur Leukocyte Esterase Trace (Negative) H 08/07/22 14:48 Urine RBC 80-100 /hpf (0-2) H 08/07/22 14:48 Urine WBC 0-4 /hpf (0-5) H 08/07/22 14:48 Ur Squamous Epith Cells 0-4 /hpf (0-5) H 08/07/22 14:48 Amorphous Sediment 4+ /hpf 08/07/22 14:48 Urine Bacteria Trace /hpf (NONE) 08/07/22 14:48 Urine Opiates Screen Negative ng/mL (Negative) 08/07/22 14:48 Ur Barbiturates Screen Negative ng/mL (Negative) 08/07/22 14:48 Ur Phencyclidine Scrn Negative ng/mL (Negative) 08/07/22 14:48 Ur Amphetamines Screen Negative ng/mL (Negative) 08/07/22 14:48 Phenobarbital 17.6 ug/mL (10-30) 08/13/22 02:29 U Benzodiazepines Scrn Negative ng/mL (Negative) 08/07/22 14:48 Urine Cocaine Screen Negative ng/mL (Negative) 08/07/22 14:48 U Marijuana (THC) Screen Positive ng/mL (Negative) H 08/07/22 14:48 Ethyl Alcohol < 10 mg/dL (0-10) 08/07/22 12:45 Serum Ketones Negative (Negative) 08/12/22 10:20 Hepatitis A IgM Ab Non-reactive (Nonreactive) 08/07/22 22:40 Hep Bs Antigen Non-reactive (Nonreactive) 08/07/22 22:40 Hep Bs Antibody 5.3 (11.5-1000) L 08/07/22 22:40 Hep B Core Total Ab Non-reactive (Nonreactive) 08/07/22 22:40 Hepatitis C Antibody Reactive (Nonreactive) H 08/07/22 22:40 HCV RNA (PCR) IUs/ml <1.18 not detected Log IU/mL (NOT DETECTED) 08/09/22 00:59 HCV RNA (PCR) IU log10 <15 not detected IU/mL (NOT DETECTED) 08/09/22 00:59 A&P Assessment and plan (1) Hypercapnic respiratory failure: (2) Hypophosphatemia: (3) Diabetes: (4) Alcohol withdrawal seizure: (5) Alcohol abuse: (6) Difficult ventilator weaning: (7) Thrombocytopenia: Plan #Altered mental status/seizures secondary to alcohol withdrawal-resulting hypercapnic respiratory failure-requiring intubation and mechanical ventilation-extubated successfully yesterday #Hypophosphatemia-secondary to alcohol #Underlying liver cirrhosis #Diabetes with moderately controlled sugars #Thrombocytopenia-secondary to alcohol disorder/cirrhosis/less likely HIT as it dropped 30- 50% in < 5 days; no evidence of thrombus, possible other causes (4T score 2 low probalility) -Extubated successfully yesterday currently requiring 3 L nasal cannula -Appears more alert and communicative but has occasional episodes of confusion-not sure if it is his baseline secondary to chronic alcoholism -Currently on folic acid/multivitamin-he was receiving IV thiamine-switch to thiamine p.o. -Potassium 3.4-supplemented; magnesium and phosphorus are within normal limits - on scale coverage for uncontrolled sugars -Bedside swallow eval-improving swallow-recommended to advance diet as tolerated ICU CHECKLIST: Problem list updated Verbal orders reviewed and signed Code Status: Limited Disposition: Can be transferred to medical floor Critically ill: Yes MD discussed with: Hospitalist, RN, RT taking care of the patient Analgesia: N/A Glycemic Control: Insulin scale coverage Nutrition: Glucerna tube feeding Restraint Renewal (within 24 hrs): Yes Ulcer Prophylaxis: PPI Chemical Thromboprophylaxis: Prophylaxis: Heparin held in view of thrombocytopenia Mechanical Thromboprophylaxis: SCDs Need for Central line: N/A Need for Guzman catheter: Yes urine output monitoring Critical Care Time (No Overlap): 37 min I was consulted to help with extubation-patient is successfully extubated yesterday; at this point I am signing off and please consult as necessary Attestations Medical Necessity Statement*: Deferred to hospitalist Time Spent in Patient Care: Greater than 35 minutes (>than 50% of time spent in counselling and/or direct pt care on unit). Critical Care Time: This patient has a high probability of clinically significant, sudden or life threatening deterioration of the patient's (neurological, pulmonary, hepatic) systems required my full, direct attention, the highest level of physician preparedness for urgent intervention and personal management. I managed/supervised life or organ supporting interventions that required frequent physician assessment. I devoted my full attention in the ICU to the direct care of this patient for the period of time indicated above. Time I spent with family or surrogate(s) is included only if the patient was incapable of providing necessary information or participating in decision making. This time includes the following services provided: Telemetry review Mechanical Ventilation Hemodynamic interpretation, assessment and management Review and interpretation of CXR Review and interpretation of lab values Review and interpretation of microbiologic data and culture results Review of medications and administration Review and interpretation of Nutrition requirements and management Discussion of management with other consultants and services Clinical update to family members [x] Data and vital sign review and interpretation [x] Patient assessment, examination and intervention [x] Documentation [x] Medication orders and management Time spent for teaching as well as performing procedures are billed separately and is not included in this note Critical Care Time (min): 37 Coding Level of Care Code Critical Care >/= 30 minutes Diagnoses Hypercapnic respiratory failure J96.92 Hypophosphatemia E83.39 Diabetes E11.9 Alcohol withdrawal seizure F10.939; R56.9 Alcohol abuse F10.10 Difficult ventilator weaning Z99.11 Thrombocytopenia D69.6 Time Spent (min) 37
[2022-08-15] VITALS (37 sets, daily range): BP systolic 132–169; BP diastolic 61–104; PULSE 73–113; RESP 17–29; TEMP 36.7–37.4; O2SAT 91–99; BMI 23.7
[2022-08-15] MEDS: pantoprazole 40 mg SDV IVP ×2 (06:28→17:28)
[2022-08-15 06:38] LABS: Glucose Point of Care 208 mg/dL (70-110)
[2022-08-15] MEDS: insulin lispro 100 unit/1 mL SUBCUT ×3 (06:41→17:28)
[2022-08-15 07:45] LABS: Basophils % 0.9 %; Eosinophils # 0.1 10^3/uL (0.0-0.8); Hematocrit 33.3 % (42.0-52.0); Hemoglobin 11.1 g/dL (11.7-16.6); Lymphocytes # 0.3 10^3/uL (0.8-4.8); Lymphocytes % 9.5 %; Mean Corpuscular HGB Conc 33.3 g/dL (30.0-36.0); Mean Corpuscular Hemoglobin 30.7 pg (28.0-34.0); Monocytes # 0.4 10^3/uL (0.2-0.9); Monocytes % 12.2 %; Neutrophils # 2.48 10^3/uL (1.8-7.7); Neutrophils % 73.8 %; Nucleated Red Blood Cells % 0 %; Platelet Count 44 10^3/cmm (130-400); Red Blood Count 3.62 10^6/uL (4.1-5.3); Red Cell Distribution Width 18.8 % (12.1-15.1); White Blood Count 3.4 10^3/uL (4.0-10.0)
[2022-08-15 08:19] LABS: Anion Gap 10.4 (5-19); Blood Urea Nitrogen 18 mg/dL (8-23); Calcium 8.5 mg/dL (8.5-10.5); Carbon Dioxide 24 mmol/L (22-29); Chloride 98 mmol/L (98-107); Glomerular Filtration Rate 133.6 mL/min (90-130); Glucose 193 mg/dL (65-115); Osmolality Calculated 275 mOsm/kg (285-295); Potassium 3.4 mmol/L (3.5-5.1); Sodium 129 mmol/L (136-145)
[2022-08-15] MEDS: folic acid 1 mg Tablet PO (08:33)
[2022-08-15] MEDS: lisinopril 20 mg Tablet 40 MG PO (08:33)
[2022-08-15] MEDS: multivitamin therapeutic Tablet 1 TAB PO (08:33)
[2022-08-15] MEDS: thiamine 100 mg Tablet PO (08:33)
[2022-08-15] MEDS: amlodipine 10 mg Tablet PO (08:34)
[2022-08-15] MEDS: loperamide 2 mg Capsule 4 MG PO (11:33)
[2022-08-15 11:37] LABS: Glucose Point of Care 246 mg/dL (70-110)
--- NOTE | 2022-08-15 12:24 | PM.PN ---
Subjective Subjective: seen today patient talking he says he misses his . they have been together for 18 years he wanted me to dial her number on his cell phone. he talked with he states he interested in rehab and looking forward to getting better Has been having watery BM's since yesterday c diff is negative zosyn was stopped yesterday after total 7 days of tx. worked with PT and acute rehab recommended patient denies cp, sob, n/v gould removed yesterday Vitals/I&O/Wt Last Vital Signs Temp 98.7 F 08/15/22 09:00 Pulse 91 08/15/22 12:00 Resp 23 H 08/15/22 12:00 BP 169/75 08/15/22 12:00 Pulse Ox 94 08/15/22 12:00 O2 Del Method 08/15/22 12:00 O2 Flow Rate 3 08/14/22 19:59 FiO2 24 08/14/22 06:00 08/14/22 08/15/22 08/15/22 22:59 06:59 14:59 Intake Total 760 / 1290 350 / 1640 240 / 240 Output Total 0 / 800 0 / 800 Balance 760 / 490 350 / 840 240 / 240 Weight last 48 hrs Weight 76.158 kg Weight 76.158 kg Physical Exam Narrative: General: Awake alert and oriented x2 HEENT: EOMI, PERRLA Chest: Normal vesicular breath sounds, no added sounds, equal good air entry bilaterally, on room air now. CVS: S1-S2 regular, no murmurs, Abdomen: Soft, nontender, no organomegaly, bowel sounds present Neuro: Able to move all 4 extremities. No gross focal neurological deficits. Urinary Catheter Management: Gould: Cath Placed During This Visit: yes Reason for Continuing Indwelling Catheter: Accurate Measurement of Urinary Output in Critically Ill Patients Urinary Catheter Date of Insertion: 08/07/22 Urinary Catheter Time of Insertion: 17:30 Data 08/15/22 07:36 08/15/22 07:36 Micro: Microbiology 08/14/22 18:40 C.difficile Toxin B Gene (PCR) - Final Stool Routine Collection A&P Assessment and plan (1) Alcohol withdrawal seizure: (2) Hypercapnic respiratory failure: (3) High anion gap metabolic acidosis: (4) Hepatorenal syndrome: (5) Acute kidney injury: (6) Transaminitis: (7) Lactic acid acidosis: (8) Diabetes: (9) Esophageal varices in alcoholic cirrhosis: (10) Alcohol abuse: (11) Essential hypertension: (12) UTI (urinary tract infection): (13) Hypothermia: Plan 67-year-old with history of chronic alcoholic abuse found to have alcohol withdrawal seizures at home by EMS received Ativan and when present in the ER was found to be hypercapnic, mixed metabolic and respiratory acidosis with high anion gap acidosis, acute kidney injury liver disorder obtunded on BiPAP hence decision was made to intubate to protect airway. Plan: Alcohol abuse/alcohol withdrawal seizure: Patient extubated 08/13/2022 IV thiamine 100 mg to be continued. Switch to oral thiamine 100 daily. Oral folic acid 1 g daily. Phosphorus repleted. MRSA nares negative BCx NTD. Completed zosyn x 7 days total. TRISTEN - Resolved Suscpicion of hepatorenal syndrome with hyperkalemia and HAGMA - resolved Pt did receive octreotide and albumin briefly Kidney function has normalized. Midodrine stopped. Alcoholic liver cirrhosis: Transaminitis, hyperbilirubinemia. INR mildly elevated. Child- Adair score 9. Patient is not a good candidate for liver transplant given current alcohol abuse. Protonix 40 BID daily Hold off on rosuvastatin for now. Hepatitis C positive Thrombocytopenia: Most likely in setting of chronic alcohol liver disease. Slight worsening today. No active site of bleeding. Continue to monitor. Platelets have improved to 59,000. History of esophageal varices: CT abdomen pelvis shows portal vein hypertension with extensive portal venous collaterals. Nonhemorrhagic for now. Continue to monitor hemoglobin. Continue Protonix 40 mg twice daily. - Hold off on pharmacological DVT PPX. Will need referral to GI at discharge. Hypertension: Goal blood pressure less than 140/90 mmHg. Lisinopril restarted at 40 mg daily. Type 2 diabetes mellitus: A1c 5.4. Hold off on any further insulin. On review of medication it seems patient is on a medication called as Levnatinib which is anticancer medication for possible thyroid cancer. Life partner cannot give me any medical history. No medical history present in chart. TSH normal limits. Check PTH. Corrected calcium at 9.8. PT complete. Acute rehab recommended. Speech eval complete: Dysphagia level 5 diet CODE STATUS: Limited resuscitation. Thrombocytopenia. Hold off on heparin for now. Protonix. Will suffice as PVD prophylaxis. Transfer to floor today. Work on rehab placement Attestations Medical Necessity Statement*: Transfer to floor today. Working on rehab placement. Critical Care Time: Critical Care Time (min): 30 Diagnoses Alcohol withdrawal seizure F10.939; R56.9 Hypercapnic respiratory failure J96.92 High anion gap metabolic acidosis E87.29 Hepatorenal syndrome K76.7 Acute kidney injury N17.9 Transaminitis R74.01 Lactic acid acidosis E87.20 Diabetes E11.9 Esophageal varices in alcoholic cirrhosis K70.30; I85.10 Alcohol abuse F10.10 Essential hypertension I10 UTI (urinary tract infection) N39.0 Hypothermia T68.XXXA
[2022-08-15 17:27] LABS: Glucose Point of Care 199 mg/dL (70-110)
[2022-08-15] MEDS: hyDRALAzine 20 mg/mL INJ 1 mL 5 MG IVP (18:30)
--- NOTE | 2022-08-15 18:30 | PC.NURSE ---
Patient transferred to second floor 259-1 vial wheelchair. Patient belongings including home medications transferred with patient. Patient in bed with floor nurse at bedside, performing physical assessment. Patient had no complaints or questions at time of transfer. Patient chart left with staff at [facility].
[2022-08-15] MEDS: budesonide 0.5 mg/2 mL Neb INHALATION (19:46)
[2022-08-16] VITALS (8 sets, daily range): BP systolic 140–168; BP diastolic 67–73; PULSE 79–94; RESP 16–22; TEMP 36.6–37.3; O2SAT 94–98
[2022-08-16] MEDS: pantoprazole 40 mg SDV IVP ×2 (05:31→17:29)
[2022-08-16 05:36] LABS: Eosinophils # 0.1 10^3/uL (0.0-0.8); Eosinophils % 2.7 %; Hematocrit 31.6 % (42.0-52.0); Hemoglobin 10.5 g/dL (11.7-16.6); Lymphocytes # 0.3 10^3/uL (0.8-4.8); Lymphocytes % 9.2 %; Mean Corpuscular HGB Conc 33.2 g/dL (30.0-36.0); Mean Corpuscular Hemoglobin 30.8 pg (28.0-34.0); Mean Corpuscular Volume 92.7 fl (80-94); Mean Platelet Volume 11.8 fL (7.4-10.4); Monocytes # 0.4 10^3/uL (0.2-0.9); Monocytes % 12.3 %; Neutrophils # 2.18 10^3/uL (1.8-7.7); Neutrophils % 74.5 %; Nucleated Red Blood Cells % 0 %; Platelet Count 44 10^3/cmm (130-400); Red Blood Count 3.41 10^6/uL (4.1-5.3); Red Cell Distribution Width 18.7 % (12.1-15.1); White Blood Count 2.9 10^3/uL (4.0-10.0)
[2022-08-16 06:07] LABS: Anion Gap 11.9 (5-19); Blood Urea Nitrogen 16 mg/dL (8-23); Calcium 8.3 mg/dL (8.5-10.5); Carbon Dioxide 22 mmol/L (22-29); Chloride 100 mmol/L (98-107); Glomerular Filtration Rate 133.6 mL/min (90-130); Glucose 201 mg/dL (65-115); Osmolality Calculated 277 mOsm/kg (285-295); Potassium 3.9 mmol/L (3.5-5.1); Sodium 130 mmol/L (136-145)
[2022-08-16 08:16] LABS: Glucose Point of Care 196 mg/dL (70-110)
[2022-08-16] MEDS: thiamine 100 mg Tablet PO (08:32)
[2022-08-16] MEDS: insulin lispro 100 unit/1 mL SUBCUT ×3 (08:32→17:29)
[2022-08-16] MEDS: multivitamin therapeutic Tablet 1 TAB PO (08:33)
[2022-08-16] MEDS: sennosides-docusate Tablet 1 TAB PO (08:33)
[2022-08-16] MEDS: lisinopril 20 mg Tablet 40 MG PO (08:33)
[2022-08-16] MEDS: amlodipine 10 mg Tablet PO (08:33)
[2022-08-16] MEDS: folic acid 1 mg Tablet PO (08:33)
--- NOTE | 2022-08-16 09:16 | PM.PN ---
Subjective Subjective: seen today awaiting placement Vitals/I&O/Wt Last Vital Signs Temp 97.8 F 08/16/22 08:00 Pulse 90 08/16/22 08:00 Resp 18 08/16/22 08:00 BP 162/73 08/16/22 08:00 Pulse Ox 96 08/16/22 08:00 O2 Del Method 08/16/22 08:00 O2 Flow Rate 3 08/14/22 19:59 FiO2 24 08/14/22 06:00 08/15/22 08/16/22 08/16/22 22:59 06:59 14:59 Intake Total 1388 / 1868 900 / 2768 Output Total 1250 / 1600 500 / 2100 Balance 138 / 268 400 / 668 Weight last 48 hrs Weight 76.158 kg Physical Exam Narrative: General: Awake alert and oriented x2 HEENT: EOMI, PERRLA Chest: Normal vesicular breath sounds, no added sounds, equal good air entry bilaterally, on room air now. CVS: S1-S2 regular, no murmurs, Abdomen: Soft, nontender, no organomegaly, bowel sounds present Neuro: Able to move all 4 extremities. No gross focal neurological deficits. Urinary Catheter Management: Guzman: Cath Placed During This Visit: yes Reason for Continuing Indwelling Catheter: Accurate Measurement of Urinary Output in Critically Ill Patients Urinary Catheter Date of Insertion: 08/07/22 Urinary Catheter Time of Insertion: 17:30 Data 08/16/22 05:10 08/16/22 05:10 Micro: Microbiology 08/14/22 18:40 C.difficile Toxin B Gene (PCR) - Final Stool Routine Collection A&P Assessment and plan (1) Alcohol withdrawal seizure: (2) Hypercapnic respiratory failure: (3) High anion gap metabolic acidosis: (4) Hepatorenal syndrome: (5) Acute kidney injury: (6) Transaminitis: (7) Lactic acid acidosis: (8) Diabetes: (9) Esophageal varices in alcoholic cirrhosis: (10) Alcohol abuse: (11) Essential hypertension: (12) UTI (urinary tract infection): (13) Hypothermia: Plan 67-year-old with history of chronic alcoholic abuse found to have alcohol withdrawal seizures at home by EMS received Ativan and when present in the ER was found to be hypercapnic, mixed metabolic and respiratory acidosis with high anion gap acidosis, acute kidney injury liver disorder obtunded on BiPAP hence decision was made to intubate to protect airway. Plan: Alcohol abuse/alcohol withdrawal seizure: Patient extubated 08/13/2022 IV thiamine 100 mg to be continued. Switch to oral thiamine 100 daily. Oral folic acid 1 g daily. Phosphorus repleted. MRSA nares negative BCx NTD. Completed zosyn x 7 days total. TRISTEN - Resolved Suscpicion of hepatorenal syndrome with hyperkalemia and HAGMA - resolved Pt did receive octreotide and albumin briefly Kidney function has normalized. Midodrine stopped. Alcoholic liver cirrhosis: Transaminitis, hyperbilirubinemia. INR mildly elevated. Child- Adair score 9. Patient is not a good candidate for liver transplant given current alcohol abuse. Protonix 40 BID daily Hold off on rosuvastatin for now. Hepatitis C positive Thrombocytopenia: Most likely in setting of chronic alcohol liver disease. Slight worsening today. No active site of bleeding. Continue to monitor. Platelets have improved to 59,000. History of esophageal varices: CT abdomen pelvis shows portal vein hypertension with extensive portal venous collaterals. Nonhemorrhagic for now. Continue to monitor hemoglobin. Continue Protonix 40 mg twice daily. - Hold off on pharmacological DVT PPX. Will need referral to GI at discharge. Hypertension: Goal blood pressure less than 140/90 mmHg. Lisinopril restarted at 40 mg daily. Type 2 diabetes mellitus: A1c 5.4. Hold off on any further insulin. On review of medication it seems patient is on a medication called as Levnatinib which is anticancer medication for possible thyroid cancer. Life partner cannot give me any medical history. No medical history present in chart. TSH normal limits. Check PTH. Corrected calcium at 9.8. PT complete. Acute rehab recommended. Speech eval complete: Dysphagia level 5 diet CODE STATUS: Limited resuscitation. Thrombocytopenia. Hold off on heparin for now. Protonix. Will suffice as PVD prophylaxis. Work on rehab placement Attestations Medical Necessity Statement*: placement pending Diagnoses Alcohol withdrawal seizure F10.939; R56.9 Hypercapnic respiratory failure J96.92 High anion gap metabolic acidosis E87.29 Hepatorenal syndrome K76.7 Acute kidney injury N17.9 Transaminitis R74.01 Lactic acid acidosis E87.20 Diabetes E11.9 Esophageal varices in alcoholic cirrhosis K70.30; I85.10 Alcohol abuse F10.10 Essential hypertension I10 UTI (urinary tract infection) N39.0 Hypothermia T68.XXXA
[2022-08-16] MEDS: budesonide 0.5 mg/2 mL Neb INHALATION ×2 (09:20→20:53)
--- NOTE | 2022-08-16 11:05 | PC.SOCIAL ---
Imm update Imm updated with patient at bedside. Copy of page 2 provided. Patient verbalized understanding. Copy in chart initialed, dated and timed.
[2022-08-16 11:29] LABS: Glucose Point of Care 196 mg/dL (70-110)
[2022-08-16 17:03] LABS: Glucose Point of Care 232 mg/dL (70-110)
[2022-08-16 23:24] LABS: Glucose Point of Care 175 mg/dL (70-110)
[2022-08-17] VITALS (7 sets, daily range): BP systolic 143–154; BP diastolic 72–79; PULSE 75–93; RESP 16–21; TEMP 36.8–37.3; O2SAT 95–98
[2022-08-17 04:19] LABS: Basophils % 0.8 %; Eosinophils # 0.1 10^3/uL (0.0-0.8); Eosinophils % 2.5 %; Hematocrit 30.3 % (42.0-52.0); Hemoglobin 9.9 g/dL (11.7-16.6); Lymphocytes # 0.2 10^3/uL (0.8-4.8); Lymphocytes % 9.5 %; Mean Corpuscular HGB Conc 32.7 g/dL (30.0-36.0); Mean Corpuscular Hemoglobin 30.4 pg (28.0-34.0); Mean Corpuscular Volume 92.9 fl (80-94); Mean Platelet Volume 12.1 fL (7.4-10.4); Monocytes # 0.3 10^3/uL (0.2-0.9); Monocytes % 11.5 %; Neutrophils # 1.83 10^3/uL (1.8-7.7); Neutrophils % 75.3 %; Nucleated Red Blood Cells % 0 %; Platelet Count 49 10^3/cmm (130-400); Red Blood Count 3.26 10^6/uL (4.1-5.3); Red Cell Distribution Width 18.2 % (12.1-15.1); White Blood Count 2.4 10^3/uL (4.0-10.0)
[2022-08-17 04:43] LABS: Blood Urea Nitrogen 16 mg/dL (8-23); Calcium 8.3 mg/dL (8.5-10.5); Carbon Dioxide 21 mmol/L (22-29); Chloride 103 mmol/L (98-107); Glomerular Filtration Rate 133.6 mL/min (90-130); Glucose 146 mg/dL (65-115); Osmolality Calculated 282 mOsm/kg (285-295); Sodium 134 mmol/L (136-145)
[2022-08-17] MEDS: pantoprazole 40 mg SDV IVP (05:33)
[2022-08-17 08:06] LABS: Glucose Point of Care 146 mg/dL (70-110)
[2022-08-17] MEDS: insulin lispro 100 unit/1 mL SUBCUT (08:28)
[2022-08-17] MEDS: amlodipine 10 mg Tablet PO (08:29)
[2022-08-17] MEDS: multivitamin therapeutic Tablet 1 TAB PO (08:29)
[2022-08-17] MEDS: folic acid 1 mg Tablet PO (08:29)
[2022-08-17] MEDS: lisinopril 20 mg Tablet 40 MG PO (08:29)
[2022-08-17] MEDS: sennosides-docusate Tablet 1 TAB PO (08:29)
[2022-08-17] MEDS: thiamine 100 mg Tablet PO (08:29)
[2022-08-17] MEDS: budesonide 0.5 mg/2 mL Neb INHALATION (09:11)
--- NOTE | 2022-08-17 10:13 | PC.CHAP ---
Pastoral Care Encounter/Spiritual Assessment Type of Contact [] Declined electric meter setter visit [] Patient/Family/Request visit [] Outpatient visit [] Follow-up visit [] Physician referral [] Code/Alert [x] Routine visit [] Staff referral [] Actively dying [] Patient sleeping [] Family support [] [] Out of room [] Palliative care [] [] Receiving care in room [] Pre-surgical visit [] Trauma [] Long length of stay [] ICU visit [] Other: Relational/Emotional Strength [x] Patient feels connected with others/family/visitors/staff [] Distress [] Loneliness/isolation [] Abandonment Spirituality of Patient [] Person of Gi [] Attends Mormon of their Gi [x] Believes in Prayer [] Reads Bible or Lutheran materials [] There are Spiritual issues to be addressed Oral Health Therapist Interventions [x] Prayer [x] Active listening [] Non-anxious presence [x] Spiritual/emotional support [] Crisis/trauma care [] Spiritual counseling [] Bereavement support [] Provided bereavement packet [] Provided Bible/devotional materials [] Provided toy/stuffed animal, coloring book to patient or family member [] Provided Communion [] Anointing/[place] [] Salvation [x] Completed spiritual assessment [] Other: Impact on Illness or Injury [] Angry [] Fearful [] Anxious [] Often cries [] Exhaustion [] Unable to work [] Unable to attend congregation [] Unable to walk/stand [] Unable to read [] Unable to drive [] Unable to eat/drink [] Unable to sleep [] Unable to be with family [] Patient intubated [] Other: Summary Time spent with patient 5 min
[2022-08-17 11:52] LABS: Glucose Point of Care 298 mg/dL (70-110)
--- NOTE | 2022-08-17 11:54 | P.DS_ITS ---
Discharge Providers Date of Admission: 08/07/22 17:14 Date of Discharge: August 17, 2022 Attending Provider at Admission: Shahid Ortiz MD Attending Provider at Discharge: Raghu Telles MD Diagnoses at Discharge Discharge Diagnosis (1) Alcohol withdrawal seizure: Status: Acute (2) Hypercapnic respiratory failure: Status: Acute (3) High anion gap metabolic acidosis: Status: Acute (4) Hepatorenal syndrome: Status: Acute (5) Acute kidney injury: Status: Acute (6) Transaminitis: Status: Acute (7) Lactic acid acidosis: Status: Acute (8) Diabetes: Status: Acute (9) Esophageal varices in alcoholic cirrhosis: Status: Acute (10) Alcohol abuse: Status: Acute (11) Essential hypertension: Status: Acute (12) UTI (urinary tract infection): Status: Acute (13) Hypothermia: Status: Acute Reason for Visit Reason for Visit: seizure Hospital Course Hospital Course 67-year male who was admitted because of alcohol intoxication, metabolic encephalopathy, patient was intubated when he started having alcohol withdrawal seizures, received Ativan he was diagnosed with TRISTEN, hypercapnic hypoxic respiratory failure failed BiPAP therapy, TRISTEN improved after IV fluid hydration, he was diagnosed with hepatitis C alcoholic liver cirrhosis which are chronic comorbid conditions, as per the family he will not quit drinking and he has been very noncompliant, he also has history of esophageal varices for which she takes nadolol, history of hypertension takes lisinopril, it took us quite a while to extubate him because after we turned off sedation it took more than 48 hours to wake him up he does have bone marrow suppression secondary to severe alcohol abuse, patient was extubated 08/13, he did very well with physical therapy, he does not want to go to any rehab, PT recommended home health program, patient is eager to return home, I have updated his significant other Sanjuanita and updated his daughter Cynthia who is a travel nurse phone number [phone], she has been notified that patient will only get thiamine and folic acid at the time of discharge because he is not willing to quit alcohol at this point, they might opt for palliative care in case of further worsening, will give referral for new PCP in [place]. Physical Exam Narrative: Awake alert and oriented x2 HEENT: EOMI, PERRLA Chest: Normal vesicular breath sounds, no added sounds, equal good air entry bilaterally, on room air now. CVS: S1-S2 regular, no murmurs, Abdomen: Soft, nontender, no organomegaly, bowel sounds present Neuro: Able to move all 4 extremities.? No gross focal neurological deficits. Urinary Catheter Management: Guzman: Cath Placed During This Visit: yes Reason for Continuing Indwelling Catheter: Accurate Measurement of Urinary Output in Critically Ill Patients Urinary Catheter Date of Insertion: 08/07/22 Urinary Catheter Time of Insertion: 17:30 Discharge Data Studies Completed and Pending Completed Studies During Hospitalization Category Date Time Status CT abdomen pelvis w con* [id number] Stat Cat Scan 08/07/22 15:[address] head wo con* [id number] Stat Cat Scan 08/07/22 14:04 Completed XR chest 1V portable [id number] QAM Exams 08/09/22 06:00 Completed XR chest 1V portable [id number] QAM Exams 08/10/22 06:00 Completed XR chest 1V portable [id number] QAM Exams 08/11/22 06:00 Completed XR chest 1V portable [id number] Routine Exams 08/13/22 08:00 Completed XR chest 1V portable [id number] Routine Exams 08/14/22 08:00 Completed XR chest 1V portable [id number] Stat Exams 08/07/22 14:04 Completed XR chest 1V portable [id number] Stat Exams 08/07/22 17:32 Completed XR chest 1V portable [id number] Stat Exams 08/08/22 06:03 Completed CV. echo complete* [id number] Routine Ultrasound 08/08/22 06:00 Completed US gall bladder [id number] Stat Ultrasound 08/07/22 15:13 Completed Pending at discharge Category Date Time Status PTH Related Peptide (Protein) Routine Lab 08/07/22 22:40 Received Radiology Impressions Head CT 08/07/22 14:04 IMPRESSION: 1. No evidence of intracranial hemorrhage or mass effect. 2. Mild small vessel changes. Mild parenchymal volume loss. 3. Vascular calcification. 4. No acute intracranial findings. Abdomen/Pelvis CT 08/07/22 15:13 IMPRESSION: 1. 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 Splenomegaly. 3. Portal venous hypertension with extensive portal venous collaterals and small upper abdominal varices. 4. Normal renal parenchymal enhancement. No hydronephrosis. 5. Normal caliber abdominal aorta. 6. Sigmoid diverticulosis. 7. Enlarged prostate measuring 4.1 CM. 8. No other acute findings. Notified Lico Parry DO at 08/07/2022 4:22 PM. Gallbladder Ultrasound 08/07/22 15:13 IMPRESSION: 1. Markedly abnormal liver. Most consistent with a cirrhotic fibrotic appearing liver. 2. Large tubular structures in the central liver contains a lobulated mass. This is a large recanalized umbilical vein with thrombus as well as also seen on the recent CT. 3. Mild sludge-filled gallbladder. Chest X-Ray 08/14/22 08:00 Impression: 1. No change in minimal bibasilar opacities. 2. Removal of endotracheal tube and nasogastric tube. Laboratory Results WBC 2.4 10^3/uL (4.0-10.0) L 08/17/22 03:21 RBC 3.26 10^6/uL (4.1-5.3) L 08/17/22 03:21 Hgb 9.9 g/dL (11.7-16.6) L 08/17/22 03:21 Hct 30.3 % (42.0-52.0) L 08/17/22 03:21 MCV 92.9 fl (80-94) 08/17/22 03:21 MCH 30.4 pg (28.0-34.0) 08/17/22 03:21 MCHC 32.7 g/dL (30.0-36.0) 08/17/22 03:21 RDW 18.2 % (12.1-15.1) H 08/17/22 03:21 Plt Count 49 10^3/cmm (130-400) L 08/17/22 03:21 MPV 12.1 fL (7.4-10.4) H 08/17/22 03:21 Neut % (Auto) 75.3 % 08/17/22 03:21 Lymph % (Auto) 9.5 % 08/17/22 03:21 [place] % (Auto) 11.5 % 08/17/22 03:21 Eos % (Auto) 2.5 % 08/17/22 03:21 Baso % (Auto) 0.8 % 08/17/22 03:21 Neut # (Auto) 1.83 10^3/uL (1.8-7.7) 08/17/22 03:21 Lymph # (Auto) 0.2 10^3/uL (0.8-4.8) L 08/17/22 03:21 [place] # (Auto) 0.3 10^3/uL (0.2-0.9) 08/17/22 03:21 Eos # (Auto) 0.1 10^3/uL (0.0-0.8) 08/17/22 03:21 Baso # (Auto) 0.0 10^3/uL (0.0-0.1) 08/17/22 03:21 Nucleated RBC % (auto) 0 % 08/17/22 03:21 Nucleated RBCs # 0.0 /100WBC 08/17/22 03:21 PT 19.80 SECONDS (12.1-14.9) H 08/08/22 01:20 INR 1.62 (0.8-1.2) H 08/08/22 01:20 APTT 33.2 SECONDS (23.9-36.7) 08/07/22 16:34 Specimen Type Arterial 08/13/22 05:56 Sample Site Radial, right 08/13/22 05:56 ABG pH 7.46 (7.35-7.45) H 08/13/22 05:56 ABG pCO2 38.4 mmHg (35-45) 08/13/22 05:56 ABG pO2 67.8 mmHg (80.0-100.0) L 08/13/22 05:56 ABG HCO3 27.3 mmol/L (22-26) H 08/13/22 05:56 ABG O2 Saturation 93.9 08/13/22 05:56 ABG Base Excess 3.4 mmol/L (-2.0-2.0) H 08/13/22 05:56 Silvano Test Pos 08/13/22 05:56 A-a O2 Gradient 7.0 mmHg (5-10) 08/13/22 05:56 Hematocrit 41.1 % (42-52) L 08/13/22 05:56 Hgb O2 Saturation 91.9 % (95-100) L 08/13/22 05:56 Carboxyhemoglobin 1.8 %THgb (0.4-20.1) 08/13/22 05:56 Methemoglobin 0.4 % (0.4-1.5) 08/13/22 05:56 Total Hemoglobin 13.4 g/dL (14-18) L 08/13/22 05:56 Sodium 143.0 mmol/L (131-143) 08/13/22 05:56 Potassium 3.7 mmol/L (3.5-5.0) 08/13/22 05:56 Glucose 248.0 mg/dL (70-115) H 08/13/22 05:56 Ionized Calcium 1.2 mmol/L (1.1-1.4) 08/13/22 05:56 O2 Delivery Device Vent 08/13/22 05:56 O2 Liters/Min 3.0 % 08/07/22 14:18 FiO2 24.0 % 08/13/22 05:56 Tidal Volume 0.45 08/13/22 05:56 PEEP 6.0 cmH20 08/13/22 05:56 Securities Analyst ID Juan Antonio 08/13/22 05:56 Sodium 134 mmol/L (136-145) L 08/17/22 03:21 Potassium 4.0 mmol/L (3.5-5.1) 08/17/22 03:21 Chloride 103 mmol/L (98-107) 08/17/22 03:21 Carbon Dioxide 21 mmol/L (22-29) L 08/17/22 03:21 Anion Gap 14.0 (5-19) 08/17/22 03:21 BUN 16 mg/dL (8-23) 08/17/22 03:21 Creatinine 0.6 mg/dL (0.7-1.2) L 08/17/22 03:21 GFR Calculation 133.6 mL/min (90-130) H 08/17/22 03:21 Glucose 146 mg/dL (65-115) H 08/17/22 03:21 POC Glucose 298 mg/dL (70-110) H 08/17/22 11:22 Estimat Average Glucose 108 08/08/22 01:20 Hemoglobin A1c 5.4 % (4.0-6.0) 08/08/22 01:20 Calculated Osmolality 282 mOsm/kg (285-295) L 08/17/22 03:21 Lactic Acid 3.7 mmol/L (0.5-2.2) H 08/07/22 14:56 Lactic Acid (Sepsis) 2.8 mmol/L (0.5-2.2) H 08/07/22 19:00 Calcium 8.3 mg/dL (8.5-10.5) L 08/17/22 03:21 Phosphorus 2.3 mg/dL (2.5-4.5) L 08/14/22 02:21 Magnesium 1.8 mg/dL (1.7-2.3) 08/14/22 02:21 Iron 241 ug/dL (59-158) H 08/07/22 12:45 TIBC 247 mcg/dl 08/07/22 12:45 % Saturation 97.5 % (20-50) H 08/07/22 12:45 Unsat Iron Binding 6 ug/dL (112-347) L 08/07/22 12:45 Total Bilirubin 3.7 mg/dL (0.15-1.2) H 08/11/22 02:15 AST 85 U/L (0-40) H 08/11/22 02:15 ALT 52 U/L (0-41) H 08/11/22 02:15 Alkaline Phosphatase 185 U/L (40-130) H 08/11/22 02:15 Ammonia 53 umol/L (16-60) 08/09/22 03:30 Creatine Kinase 34 U/L (39-308) L 08/13/22 02:29 Total Protein 5.4 g/dL (6.6-8.7) L 08/11/22 02:15 Albumin 3.6 g/dL (3.5-5.2) 08/11/22 02:15 Globulin 1.8 g/dL (1.3-4.6) 08/11/22 02:15 Triglycerides 118 mg/dL (0-150) 08/08/22 09:06 Cholesterol 177 mg/dL (0-200) 08/08/22 09:06 LDL Cholesterol, Calc 131 mg/dL (50-129) H 08/08/22 09:06 Total VLDL Cholesterol 24 mg/dL (0-30) 08/08/22 09:06 HDL Cholesterol 22 mg/dL (60-100) L 08/08/22 09:06 Cholesterol/HDL Ratio 8.05 mg/dL (1.0-5.00) H 08/08/22 09:06 Lipase 119 U/L (13-60) H 08/07/22 12:45 Vitamin B12 1835 pg/mL (232-1245) H 08/07/22 18:10 Folate > 20.0 ng/mL (4.5-32.2) 08/07/22 18:10 Procalcitonin 1.16 ng/mL (0-0.5) H 08/07/22 12:45 TSH 1.22 uIU/mL (0.27-4.20) 08/07/22 18:10 PTH Intact 29.2 pg/mL (15-65) 08/07/22 22:40 Calcium (PTH Intact) 9.8 mg/dL (8.5-10.5) 08/07/22 22:40 Urine Color Dark yellow (Yellow) 08/07/22 14:48 Urine Appearance Hazy (CLEAR) A 08/07/22 14:48 Urine pH 5 (5-7) 08/07/22 14:48 Ur Specific [place] 1.030 (1.005-1.030) 08/07/22 14:48 Urine Protein 3+ (Negative) H 08/07/22 14:48 Urine Glucose (UA) Norm (Normal) 08/07/22 14:48 Urine Ketones 1+ (Negative) H 08/07/22 14:48 Urine Blood 3+ (Negative) H 08/07/22 14:48 Urine Nitrate Negative (Negative) 08/07/22 14:48 Urine Bilirubin 2+ (Negative) H 08/07/22 14:48 Urine Urobilinogen 8 mg/dL (Negative) H 08/07/22 14:48 Ur Leukocyte Esterase Trace (Negative) H 08/07/22 14:48 Urine RBC 80-100 /hpf (0-2) H 08/07/22 14:48 Urine WBC 0-4 /hpf (0-5) H 08/07/22 14:48 Ur Squamous Epith Cells 0-4 /hpf (0-5) H 08/07/22 14:48 Amorphous Sediment 4+ /hpf 08/07/22 14:48 Urine Bacteria Trace /hpf (NONE) 08/07/22 14:48 Urine Opiates Screen Negative ng/mL (Negative) 08/07/22 14:48 Ur Barbiturates Screen Negative ng/mL (Negative) 08/07/22 14:48 Ur Phencyclidine Scrn Negative ng/mL (Negative) 08/07/22 14:48 Ur Amphetamines Screen Negative ng/mL (Negative) 08/07/22 14:48 Phenobarbital 17.6 ug/mL (10-30) 08/13/22 02:29 U Benzodiazepines Scrn Negative ng/mL (Negative) 08/07/22 14:48 Urine Cocaine Screen Negative ng/mL (Negative) 08/07/22 14:48 U Marijuana (THC) Screen Positive ng/mL (Negative) H 08/07/22 14:48 Ethyl Alcohol < 10 mg/dL (0-10) 08/07/22 12:45 Serum Ketones Negative (Negative) 08/12/22 10:20 Hepatitis A IgM Ab Non-reactive (Nonreactive) 08/07/22 22:40 Hep Bs Antigen Non-reactive (Nonreactive) 08/07/22 22:40 Hep Bs Antibody 5.3 (11.5-1000) L 08/07/22 22:40 Hep B Core Total Ab Non-reactive (Nonreactive) 08/07/22 22:40 Hepatitis C Antibody Reactive (Nonreactive) H 08/07/22 22:40 HCV RNA (PCR) IUs/ml <1.18 not detected Log IU/mL (NOT DETECTED) 08/09/22 00:59 HCV RNA (PCR) IU log10 <15 not detected IU/mL (NOT DETECTED) 08/09/22 00:59 Vitals Last Vital Signs Temp 98.2 F 08/17/22 11:24 Pulse 93 08/17/22 11:24 Resp 18 08/17/22 11:24 BP 154/79 08/17/22 11:24 Pulse Ox 97 08/17/22 11:24 O2 Del Method 08/17/22 11:24 O2 Flow Rate 3 08/14/22 19:59 FiO2 24 08/14/22 06:00 Discharge Plan Discharge Patient Disposition: Home Condition: Stable Prescriptions: New folic acid 1 mg Tablet 1 mg PO DAILY Qty: 60 0RF thiamine mononitrate (vit B1) [Vitamin B-1 (mononitrate)] 100 mg Tablet 100 mg PO DAILY Qty: 60 0RF Continued metformin 1,000 mg tablet 1,000 mg PO BID pantoprazole 40 mg tablet,delayed release (DR/EC) 40 mg PO BID nadolol 40 mg tablet 40 mg PO DAILY folic acid 1 mg tablet 1 mg PO DAILY lisinopril 40 mg tablet 40 mg PO DAILY rosuvastatin 5 mg tablet 5 mg PO BEDTIME Lenv[place] 12 mg/day (4 mg x 3) capsule 12 mg PO DAILY Discontinued glipizide 2.5 mg tablet extended release 24hr 2.5 mg PO DAILY Discharge Orders: Discharge Order (Routine); Ordered 08/17/22 Ordered By: Raghu Telles Referrals: Ariane Bourne NP [Referring] - 7-10 days Patient Instructions: Alcohol Abuse, Alcohol Withdrawal, Thiamine (By mouth), Folic Acid (By mouth), Opioid Safety Discharge Attestations Time Spent in Discharge Care*: less than 30 min Quality Metrics Clinical Quality Measures [ No reported AMI, CVA or VTE this stay] Coding Level of Care Code Acute Code for Chg Fwd Diagnoses Alcohol withdrawal seizure F10.939; R56.9 Hypercapnic respiratory failure J96.92 High anion gap metabolic acidosis E87.29 Hepatorenal syndrome K76.7 Acute kidney injury N17.9 Transaminitis R74.01 Lactic acid acidosis E87.20 Diabetes E11.9 Esophageal varices in alcoholic cirrhosis K70.30; I85.10 Alcohol abuse F10.10 Essential hypertension I10 UTI (urinary tract infection) N39.0 Hypothermia T68.XXXA
--- NOTE | 2022-08-17 13:58 | PC.NURSE ---
patient verbalized understanding of discharge instructions, home medications, and follow up appointments, however at the time of discharge education patient was moderately anxious and irritable. Patient refused to go back to room for discharge education, and it was provided at the nurses station.
--- NOTE | 2022-08-17 14:11 | PC.NURSE ---
Patient notified that his home medications were left at the hospital. pt. family verbalized understanding that we will mail medications to the patient.
[2022-08-18 20:09] LABS: PTH Related Peptide (Protein) 7 pg/mL (11-20)
--- NOTE | 2022-08-28 12:58 | PC.SOCIAL ---
Addendum entered by Ana Dey RN 08/28/22 13:54: Was able to reach patient who stated that we could speak with his daughter or son in law. Spoke with daughterRae, in detail regarding discharge, including detailed review of medications on discharge. Follow-up appointment scheduled on 09/02/22 at 245. Original Note: BHARGAVI was notified by detail manager that Clyde Hannah ([phone]) called upset regarding patient's medications and wanting DPOA paperwork. CM reached out to patient, who first states that he does not know who Clyde Camden. Explained that Clyde stated we had him on the wrong medicine and was requesting a copy of DPOA paperwork. DPOA paperwork was not completed during patients hospitalization. He states that he does need his A1C checked and wants to be on insulin. He states that he quit taking metformin because he thinks it is going to be recalled. CM asked what his blood sugar is now, he states that he does not check his sugar. Explained the importance of this to patient. CM explained that he need to follow up with his PCP. Asked if he attended the hospital follow up appointment to establish primary care with [facility] scheduled on 08/19. He states that he did. CM told patient that we would call his PCP and ask that they reach out to him regarding follow up to address insulin. He states that we do not need to talk to Clyde regarding his care. BHARGAVI called [facility]. She states that patient no-showed his follow up appointment. She states that she has also been contacted by patients daughter and son-in-law multiple times this morning. She states that she offered them the soonest follow up appointment, being Wednesday. She encouraged them to take patient to a walk-in clinic or to return to the ED. Called patient back to close the loop. He did not answer the phone.
== END 2022-08-17 12:45 | disposition home or self-care (01) | DRG 207 ==
LOC: ER 16:09 → ICU 17:15 → MEDSURG 08-15 17:56
PROVIDERS: Internal Medicine; Internal Medicine Pulmonary Disease; Student in an Organized Health Care Education/Training Program; Admitting Provider Student in an Organized Health Care Education/Training Program; Emergency Provider Family Medicine; Visit Provider Internal Medicine
DX: J96.02 Acute respiratory failure with hypercapnia (principal); G93.41 Metabolic encephalopathy; K76.7 Hepatorenal syndrome; F10.239 Alcohol dependence with withdrawal, unspecified; K76.6 Portal hypertension; N17.9 Acute kidney failure, unspecified; N39.0 Urinary tract infection, site not specified; E87.4 Mixed disorder of acid-base balance; G40.89 Other seizures; J96.01 Acute respiratory failure with hypoxia; K70.30 Alcoholic cirrhosis of liver without ascites; K70.10 Alcoholic hepatitis without ascites; D75.89 Other specified diseases of blood and blood-forming organs; Z79.84 Long term (current) use of oral hypoglycemic drugs; E87.5 Hyperkalemia; F17.200 Nicotine dependence, unspecified, uncomplicated; D69.59 Other secondary thrombocytopenia; R68.0 Hypothermia, not associated with low environmental temperature; Z75.1 Person awaiting admission to adequate facility elsewhere; I10 Essential (primary) hypertension; E11.9 Type 2 diabetes mellitus without complications
CPT/HCPCS: 31500; 36415; 36416; 36600; 51702; 70450; 71045; 74177; 76705; 80048; 80051; 80053; 80061; 80184; 80306; 80307; 81001; 82009; 82140; 82310; 82330; 82542; 82550; 82607; 82746; 82805; 82962; 83036; 83540; 83550; 83605; 83690; 83735; 83970; 84100; 84145; 84443; 85025; 85610; 85730; 86403; 86705; 86706; 86709; 86803; 87040; 87070; 87086; 87205; 87340; 87449; 87493; 87522; 87641; 92507; 92523; 92526; 92610; 93005; 93306; 94002; 94003; 94640; 94660; 94664; 94799; 96372; 96374; 96376; 97116; 97162; 97530; 99291; C9113; J0360; J1644; J1815; J1940; J2060; J2354; J2543; J2560; J2704; J3010; J3411; J3475; J3490; J7030; J7042; J7626; P9047; Q9967

== ENCOUNTER → 2022-09-02 12:27 | Outpatient (BNVA) | payer MEDICARE, MEDICAID, SELFPAY | PROVIDERS: PCP Nurse Practitioner Family; Visit Provider Nurse Practitioner Family | DX: E11.9 Type 2 diabetes mellitus without complications (principal) | CPT/HCPCS: 83036 ==

== ENCOUNTER → 2022-11-04 12:13 | Outpatient (BNVA) | payer MEDICARE, MEDICAID, OTHER, SELFPAY | PROVIDERS: PCP Nurse Practitioner Family; Visit Provider Nurse Practitioner Family | DX: K70.30 Alcoholic cirrhosis of liver without ascites (principal) | CPT/HCPCS: 80053; 82140; 85025 ==